=== PATIENT | female | born 1955 | race Caucasian/White ===

== ENCOUNTER 2019-06-19 08:28 | Outpatient (CLI) | payer MEDICARE, SELFPAY ==
[2019-06-19 08:43] LABS: Hematocrit 39.4 % (35.0-49.0); Hemoglobin 13.2 g/dL (12.0-15.0); Mean Corpuscular HGB Conc 33.5 g/dL (32.0-36.0); Mean Corpuscular Hemoglobin 29.3 pg (27.0-31.0); Mean Corpuscular Volume 87.4 fL (78.0-102.0); Mean Platelet Volume 8.4 fl (9.2-11.8); Platelet Count Result 353 K/mm3 (150-420); Red Blood Count 4.51 M/mm3 (4.20-5.40); Red Cell Distribution Width 12.7 % (11.6-14.4); White Blood Count 4.5 K/mm3 (4.8-10.8)
[2019-06-19 10:04] LABS: Alanine Aminotransferase 17 U/L (14-59); Albumin Level 4.1 g/dL (3.4-5.0); Alkaline Phosphatase 74 U/L (46-116); Anion Gap 10.4 mmol/L (7-16); Aspartate Amino Transferase 19 U/L (15-37); Bilirubin,Total 0.3 mg/dL (0.00-1.00); Blood Urea Nitrogen 6 mg/dL (7-18); Calcium 9.4 mg/dL (8.5-10.1); Carbon Dioxide 31 mmol/L (21-32); Chloride 98 mmol/L (98-108); Cholesterol 241 mg/dL (0-200); Estimated Glomerular Filt Rate > 60; Glucose 89 mg/dL (70-99); HDL Direct 48 mg/dL (40-60); LDL Cholesterol Calculated 161 mg/dL (<130); Osmolality Calculated 276 mOsm/kg (285-295); Potassium 4.4 mmol/L (3.5-5.1); Sodium 135 mmol/L (136-145); Total Protein 7.8 g/dL (6.4-8.2); Triglycerides 162 mg/dL (0-150)
[2019-06-19 10:29] LABS: Thyroid Stimulating Hormone Reflex 5.57 u/IU/mL (0.36-3.74)
[2019-06-19 11:07] LABS: Free T4 Free Thyroxine Reflex 0.84 ng/dL (0.76-1.46)
== END 2019-06-19 08:29 | disposition home or self-care (01) ==
PROVIDERS: PCP Family Medicine; Visit Provider Family Medicine
DX: E03.9 Hypothyroidism, unspecified (principal); I10 Essential (primary) hypertension
CPT/HCPCS: 36415; 80053; 80061; 84439; 84443; 85027

== ENCOUNTER 2020-03-30 07:47 | Outpatient (CLI) | payer MEDICARE, SELFPAY ==
[2020-03-30 08:37] LABS: Thyroid Stimulating Hormone Reflex 3.08 u/IU/mL (0.36-3.74)
== END 2020-03-30 07:48 | disposition home or self-care (01) ==
LOC: CHSLAB 07:50
PROVIDERS: PCP Family Medicine; Visit Provider Family Medicine
DX: E03.9 Hypothyroidism, unspecified (principal); I10 Essential (primary) hypertension; G47.00 Insomnia, unspecified; Z12.9 Encounter for screening for malignant neoplasm, site unspecified
CPT/HCPCS: 36415; 84443

== ENCOUNTER 2020-08-03 15:44 | Outpatient (CLI) | payer MEDICARE, SELFPAY | END 2020-08-03 15:45 | disposition home or self-care (01) | LOC: CHSLAB 15:47 | PROVIDERS: PCP Family Medicine; Visit Provider Specialist | DX: K04.6 Periapical abscess with sinus (principal) | CPT/HCPCS: 36415; 87015; 87070; 87075; 87116; 87205; 87206 ==

== ENCOUNTER 2020-10-29 07:37 | Observation (INO) | payer MEDICARE, SELFPAY ==
[2020-10-29] VITALS (13 sets, daily range): BP systolic 79–152; BP diastolic 61–93; PULSE 74–99; RESP 16–21; TEMP 36.3–37.1; O2SAT 95–100; BMI 16.7
[2020-10-29] MEDS: SODIUM CHLORIDE 0.9% IV 1,000 ML 999 ML (08:11)
--- NOTE | 2020-10-29 08:14 | ECG_ITS ---
Measurements Intervals [place] Rate: 74 P: 80 GA: 149 QRS: 95 QRSD: 89 T: 91 QT: 379 QTc: 421 Interpretive Statements SINUS RHYTHM RIGHT AXIS DEVIATION BORDERLINE ST-T WAVE ABNORMALITY- DIFFUSE LEADS BORDERLINE ECG Electronically Signed On 10-29-2020 8:35:41 CDT by Nas Vides D.O.
[2020-10-29 08:22] LABS: Basophils Absolute Auto 0.04 K/mm3 (0.00-0.10); Basophils Percent Auto 0.6 % (0.0-1.0); Eosinophils Absolute Auto 0.02 K/mm3 (0.02-0.50); Eosinophils Percent Auto 0.3 % (1.0-6.0); Hematocrit 31.3 % (35.0-42.0); Immature Granulocyte Absolute 0.11 K/mm3 (0.00-0.00); Immature Granulocyte Percent A 1.5 % (0.0-0.0); Lymphocytes Absolute Auto 0.77 K/mm3 (1.10-4.50); Lymphocytes Percent Auto 10.8 % (18.0-42.0); Mean Corpuscular HGB Conc 35.1 g/dL (32.0-36.0); Mean Corpuscular Hemoglobin 29.6 pg (27.0-31.0); Mean Corpuscular Volume 84.4 fL (78.0-102.0); Mean Platelet Volume 8.1 fl (9.2-11.8); Monocytes Absolute Auto 0.71 K/mm3 (0.10-0.90); Monocytes Percent Auto 9.9 % (2.0-11.0); Neutrophils Absolute Auto 5.5 K/mm3 (1.7-7.2); Neutrophils Percent Auto 76.9 % (50.0-70.0); Platelet Count Result 733 K/mm3 (150-420); Red Blood Count 3.71 M/mm3 (4.20-5.40); Red Cell Distribution Width 13.2 % (11.6-14.4); White Blood Count 7.2 K/mm3 (4.8-10.8)
[2020-10-29 08:30] LABS: INR 1.1; Partial Thromboplastin Time 35.8 SEC (23.90-30.70)
[2020-10-29 08:38] LABS: Alanine Aminotransferase 22 U/L (14-59); Albumin Level 3.6 g/dL (3.4-5.0); Alkaline Phosphatase 133 U/L (46-116); Anion Gap 13 mmol/L (8-16); Aspartate Amino Transferase 16 U/L (15-37); Bilirubin,Total 0.4 mg/dL (0.00-1.00); Blood Urea Nitrogen 6 mg/dL (7-18); Calcium 9.3 mg/dL (8.5-10.1); Carbon Dioxide 28 mmol/L (21-32); Chloride 81 mmol/L (98-108); Estimated Glomerular Filt Rate > 60; Glucose 81 mg/dL (70-99); Magnesium 1.7 mg/dL (1.8-2.4); NT Pro B Type Natriuretic Pept 46 pg/mL (0-125); Osmolality Calculated 250 mOsm/kg (285-295); Potassium 3.2 mmol/L (3.5-5.1); Sodium 122 mmol/L (136-145); Total Protein 8.1 g/dL (6.4-8.2); Troponin I 6.2 ng/L (0.00-60.4)
[2020-10-29] MEDS: SODIUM CHLORIDE 0.9% IV 1,000 ML 999 ML IV CONT (08:50)
[2020-10-29 09:17] LABS: Appearance Urine Clear (Clear); Bilirubin Urine Negative (Negative); Color Urine Light Yellow (Yellow); Glucose Urine UA Negative (Negative); Ketones Urine 1+ (Negative); Leukocyte Esterase Ur Negative LEU/UL (Negative); Nitrate Urine Negative (Negative); Protein Urine Negative (Negative); Urobilinogen Urine 0.2 mg/dL (0.2-1.0); pH Urine 6.5 (5.0-8.0)
[2020-10-29 09:22] LABS: Add Urine Microscopic? YES; Blood Urine Trace-lysed (Negative)
[2020-10-29 09:23] LABS: Bacteria Urine Trace /hpf; RBC Urine None seen /hpf (0-2); Squamous Epithelial Cell Urine Few /hpf (Few); WBC Urine None seen /hpf (0-3)
[2020-10-29] MEDS: POTASSIUM CHLORIDE 20 MEQ PACKET (FOR LIQUID) 40 MEQ (09:23)
[2020-10-29] MEDS: MAGNESIUM SULF 2 GM/WATER 50ML 2 GM/50 ML BAG IVPB (09:29)
--- NOTE | 2020-10-29 09:37 | ED.DIZZY ---
HPI - Dizziness General Chief Complaint: Syncope Stated Complaint: PASSING OUT Source: patient Mode of arrival: ambulatory Limitations: no limitations History of Present Illness HPI Narrative: pt presents with complaints of weakness, blacking out in vision, and generally feeling poorly. MD elicited complaint: dizziness, lightheadedness and near syncope Pertinent past history: syncope Onset (ago): day(s) Timing: gradual onset Description: lightheadedness, off-balance, difficulty walking and near-syncope Context: other (recent surgery on jaw, and states that its a lot of work to eat. She said she also gets full really easy.) Exacerbating factors: movement/ambulation, change in body position, exertion and standing Relieving factors: rest and lying down Associated symptoms: weakness Related Data Home Medications Medication Instructions Recorded Confirmed amlodipine 10 mg PO DAILY 10/29/20 10/29/20 levothyroxine 50 mcg PO DAILY 10/29/20 10/29/20 Allergies Allergy/AdvReac Type Severity Reaction Status Date / Time No Known Allergies Allergy Verified 10/25/20 06:55 Review of Systems Constitutional: Constitutional: Denies chills, Reports fatigue, Denies fever(s) and Reports weakness Eyes: Eyes: Reports no additional eye complaints ENT: Comments: continued drainage from post op wounds- her surgeon is aware Cardiovascular: Cardiovascular: Reports no additional cardiovascular complaints Respiratory: Respiratory: Reports no additional respiratory complaints Gastrointestinal: Gastrointestinal: Reports no additional gastrointestinal complaints Comments: early satiety Genitourinary: Comments: dark urine and decreased output Musculoskeletal: Musculoskeletal: Reports no additional musculoskeletal complaints Neurologic: Reports system reviewed and no additional complaints, except as documented, Denies confusion, Denies vertigo, Reports dizziness, Reports syncope, Denies headache(s), Denies focal weakness, Denies numbness and Reports weakness Psychiatric: Psychiatric: Reports no additional psychiatric complaints Endocrine: Endocrine: Reports no additional endocrine complaints Hematologic/Lymphatic: Hematologic/Lymphatic: Reports no additional hematologic/lymphatic complaints Allergic/Immunologic: Allergic/Immunologic: Reports no additional allergic/immunologic complaints [facility] Past Medical History Medical History History of cigarette smoking History of mouth cancer July 2009. 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 Hypertension Hypothyroidism Insomnia Surgical History Surgical History History of appendectomy Social History Social History Smoking status: Former smoker Tobacco type: cigarettes Additional smoking assessment comments: 35 pack-year history. Quit 2009. Additional living arrangements comments: . Lives with . 2 adult children. Exam Const: General: no acute distress and alert Orientation/consciousness: patient oriented x3 HENMT: Other: recent post op- some scabs in place, bruising and swelling appropriate for stage in healing Eyes: Conjunctivae: conjunctivae normal Neck: Neck: normal visual inspection Chest: Chest palpation & inspection: normal inspection of the chest Resp: Effort & Inspection: normal respiratory effort Auscultation: clear to auscultation bilaterally Cardio: Rate: regular rate Rhythm: regular rhythm GI: GI Palp: Yes Soft to palpation, No Tenderness to palpation present (GI) and No Guarding due to palpation present (GI) : General: Yes no CVA tenderness Urinary Catheter: Urinary Catheter: patent and draining Back/Spine/Pelvis: Back: no CVA tenderness Skin: General skin exam: normal color Other: bruising and wounds over post op areas, appropriate for stages in healing [place]
--- NOTE | 2020-10-29 10:02 | PM.IMHP ---
H&P: HPI History of Present Illness Date/Time: 10/29/20 10:02 Chief Complaint: fatigue, lightheaded and dizziness Narrative: this 65-year-old female who presented to our emergency department with complaints of lightheaded, dizziness fatigue. Patient has a past medical history of mouth cancer, hypertension, hypothyroidism insomnia and history of smoking. According to patient in 2019 she was diagnosed with mouth cancer ,at that time she received reconstructive surgery of her lower jaw. Patient notes that her left leg bone was used along with metal to reconstruct her lower jaw. She noted that recently she noticed protrusion to the left side of her jaw . She noted that after imaging it was discovered that the metal portion of her lower jaw Reconstruction had protruded through the graft. At that time she received more reconstruction of her lower, they used the bone of her right leg to reconstruct her lower jaw. Patient notes that approximately 2 weeks her fluid intake and oral intake decreased. Patient notes that he just did not take care of herself. She notes that her taste buds are non-existent due to her surgical procedure. She states she also started to experience dizziness and lightheaded when she stood up. vital signs 97.3, at 98, 21, 100% on room air, 79/61. WBC 7.2, hemoglobin 11.0, hematocrit 31.3, platelets 733, sodium 122, potassium 3.2, BUN 6, creatinine 0.67, magnesium 1.7, liver function tests within normal limits, troponin 6.2, BUN 46, UA positive for ketones blood, EKG sinus rhythm with a heart rate of 74. Patient being admitted for dehydration, and electrolyte imbalance. Patient denies cp, sob, palpitation, diarrhea, constipation, , headache, or chills and fevers. Review of Systems Review of Systems: A 14 organ system Review of Systems was performed and pertinent positives included in the HPI, otherwise PMF Past Medical History Medical History History of cigarette smoking History of mouth cancer July 2009. 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 Hypertension Hypothyroidism Insomnia Surgical History Surgical History History of appendectomy Family History Family History (Updated 10/29/20 @ 11:09 by Sonda R. Anthoyn, RADIOLOGY THERAPIST-C) Other Family history non-contributory Social History Social History Smoking status: Former smoker Tobacco type: cigarettes Additional smoking assessment comments: 35 pack-year history. Quit 2009. Additional living arrangements comments: . Lives with . 2 adult children. Meds Home Medications and Allergies Home Medications Medication Instructions Recorded Confirmed Type amlodipine 10 mg PO DAILY 10/29/20 10/29/20 History levothyroxine 50 mcg PO DAILY 10/29/20 10/29/20 History Allergies Allergy/AdvReac Type Severity Reaction Status Date / Time No Known Allergies Allergy Verified 10/25/20 06:55 Vital Signs Vital Signs - 24 hr 10/29/20 07:45 10/29/20 07:48 10/29/20 07:51 Temperature 97.3 F L Pulse Rate 87 86 84 Respiratory Rate 21 H Blood Pressure 152/82 H 142/84 H 137/83 Pulse Oximetry 100 10/29/20 07:53 Temperature Pulse Rate 98 Respiratory Rate Blood Pressure 79/61 L Pulse Oximetry Exam Narrative: GENERAL: This is a well-nourished, well-developed patient, in no apparent distress. HEAD: normocephalic, atraumatic. EYES: PERRL. Sclera clear/white. Vision is grossly intact. EARS: External ears normal, auditory canals clear and without drainage, TMs normal without perforation. Hearing grossly intact. NOSE: External nose normal with no obvious nasal discharge, nares without redness, no rhinorrhea. THROAT: Mucous membranes moist, posterior pharynx clear. NECK: Neck supple, CARDIOVASCULAR: Regular rate and rhythm without murmurs, gallops, or rub
[2020-10-29] MEDS: SODIUM CHLORIDE 0.9% IV 1,000 ML 150 ML IV CONT ×2 (10:30→18:24)
--- NOTE | 2020-10-29 13:30 | ADMGEN ---
This patient, Chaparrita Sinha, was admitted to 2nd Floor Room 203-1. Patient/family oriented to hospital policies and general routines including ID bracelet, bed and alarms, visiting hours, pain management, procedures, bathroom and other care routines, personal items, smoking policy, room service/diet, and visiting hours. Information on how to activate the Rapid Response Team has been discussed. Patient/Family are encouraged to report perceived risks to care and to ask questions if they do not understand what they are told or what they should do. Here at 11:30 for dehydration and not eating well. patient had hx of throat ca and had part of her tongue removed several years back. leaves her speech hard to understand at times. just got out of [facility] on 10-14-20 for constructiv surg to jaw. surture line has dry dark scabs through out. ocassional has clear serous drainage that she dabs with kleenex. claims she applies triple antibiotic oint. home health picks scabs off and then she has to start over. has r leg sutures from knee down to ankle. claims sutures dissolve. site looks good.
[2020-10-29] MEDS: ACETAMINOPHEN 325 MG TABLET 650 MG PO ×2 (13:54→18:30)
[2020-10-29] MEDS: ENOXAPARIN 40 MG/0.4 ML SYRINGE SUB-Q (13:55)
[2020-10-29] MEDS: NEOMYCIN/POLYMYXIN/BACITRACIN OINTMENT 15 GM TUBE 1 APPLIC TOPICAL ×2 (15:09→16:24)
--- NOTE | 2020-10-29 16:36 | PC.NURSE ---
Patient resting in bed w/no c/o pain or discomfort at this time. IV fluids running as ordered.
[2020-10-30] MEDS: SODIUM CHLORIDE 0.9% IV 1,000 ML 150 ML IV CONT ×2 (00:10→06:50)
[2020-10-30 03:52] VITALS: PULSE 92
[2020-10-30] MEDS: ACETAMINOPHEN 325 MG TABLET 650 MG PO ×3 (04:25→20:59)
--- NOTE | 2020-10-30 05:00 | PC.NURSE ---
Patient Chaparrita Sinha has had a somewhat restless night. Respirations even nonlabored, Up to bedside commode with no assist from staff ; large output of 2500cc clear pale yellow urine this shift. IV remains running with NS @150 ml/hr. 20 g. to left antecubital area. Difficulty keeping from bending. Arm board applied to help aide in prevention of bending at her elbow. Request for Tylenol @ 04:30 a.m. mild pain. and is now resting quietly. Call light in reach eyes closed.
[2020-10-30 05:22] LABS: Hemoglobin 10.2 g/dL (11.7-13.8); Immature Platelet Fraction Pct 0.6 % (1.0-7.0); Mean Corpuscular Hemoglobin 29.3 pg (27.0-31.0); Mean Corpuscular Volume 86.2 fL (78.0-102.0); Mean Platelet Volume 8.2 fl (9.2-11.8); Platelet Count Result 765 K/mm3 (150-420); Red Blood Count 3.48 M/mm3 (4.20-5.40); Red Cell Distribution Width 13.5 % (11.6-14.4); White Blood Count 5.9 K/mm3 (4.8-10.8)
[2020-10-30 05:33] LABS: Anion Gap 10 mmol/L (8-16); Blood Urea Nitrogen 3 mg/dL (7-18); Calcium 8.2 mg/dL (8.5-10.1); Carbon Dioxide 31 mmol/L (21-32); Chloride 94 mmol/L (98-108); Estimated CRCL calculation 75 ml/min; Estimated Glomerular Filt Rate > 60; Glucose 106 mg/dL (70-99); Osmolality Calculated 276 mOsm/kg (285-295); Potassium 2.9 mmol/L (3.5-5.1); Sodium 135 mmol/L (136-145)
[2020-10-30 05:39] LABS: Magnesium 1.7 mg/dL (1.8-2.4)
[2020-10-30] MEDS: LEVOTHYROXINE SODIUM 50 MCG TABLET PO (06:04)
[2020-10-30] MEDS: HYDROcodone/acetaminophen (*CRX) 5-325 MG TABLET 1 TAB PO (07:33)
[2020-10-30 08:00] VITALS: BP 113/71; PULSE 80; PULSE 85; RESP 16; TEMP 36.3; O2SAT 97
[2020-10-30] MEDS: DEXTROSE 5%/0.45% SOD CHL 1,000 ML 100 ML IV CONT (08:03)
[2020-10-30] MEDS: KCL 20 MEQ/SW 100 ML 100 ML 50 MEQ IVPB (08:04)
[2020-10-30] MEDS: POTASSIUM CHLORIDE 20 MEQ PACKET (FOR LIQUID) 40 MEQ PO (09:25)
[2020-10-30] MEDS: MAGNESIUM OXIDE 400 MG TABLET PO (09:26)
[2020-10-30] MEDS: NEOMYCIN/POLYMYXIN/BACITRACIN OINTMENT 15 GM TUBE 1 APPLIC TOPICAL ×2 (09:26→17:26)
--- NOTE | 2020-10-30 10:20 | P.PN_ITS ---
Progress Note: A&P Assessment and Plan (1) Acute dehydration: Code(s): E86.0 - Dehydration <REMIGIO BirdC - Last Filed: 10/30/20 10:23> Status: Acute <YING Bird - Last Filed: 10/30/20 10:23> Assessment and Plan: * Resolved * as evidence by hypotension and electrolyte imbalance caused by decreased oral intake * continue IV fluid changed to D5 one half normal saline * replace electrolytes <REMIGIO BirdC - Last Filed: 10/30/20 10:23> (2) Acute hypotension: Code(s): I95.9 - Hypotension, unspecified <YING Bird - Last Filed: 10/30/20 10:23> Status: Acute <YING Bird - Last Filed: 10/30/20 10:23> Assessment and Plan: * Resolved * secondary to dehydration * continue vital signs * continue IV fluid * orthostatics blood pressure reading <YING Bird - Last Filed: 10/30/20 10:23> (3) Insomnia: Qualifiers: Insomnia type: primary Qualified Code(s): F51.01 - Primary insomnia <YING Bird - Last Filed: 10/30/20 10:23> Code(s): G47.00 - Insomnia, unspecified <YING Bird - Last Filed: 10/30/20 10:23> Status: Acute <YING Bird - Last Filed: 10/30/20 10:23> Assessment and Plan: * chronic * added trazodone <REMIGIO BirdC - Last Filed: 10/30/20 10:23> (4) History of mouth cancer: Code(s): Z85.819 - Personal history of malignant neoplasm of unspecified site of lip, oral cavity, and pharynx <Angella Cruz AMANDA-C - Last Filed: 10/30/20 10:23> Status: Resolved <Angella Cruz YING - Last Filed: 10/30/20 10:23> (5) Hypothyroidism: Qualifiers: Hypothyroidism type: acquired Qualified Code(s): E03.9 - Hypothyroidism, unspecified <YING Bird - Last Filed: 10/30/20 10:23> Code(s): E03.9 - Hypothyroidism, unspecified <YING Bird - Last Filed: 10/30/20 10:23> Status: Chronic <YING Bird - Last Filed: 10/30/20 10:23> Assessment and Plan: * continue Synthroid <YING Bird - Last Filed: 10/30/20 10:23> (6) Hypertension: Qualifiers: Hypertension type: primary hypertension Qualified Code(s): I10 - Essential (primary) hypertension <YING Bird - Last Filed: 10/30/20 10:23> Code(s): I10 - Essential (primary) hypertension <Angella Cruz YING - Last Filed: 10/30/20 10:23> Status: Chronic <YING Bird - Last Filed: 10/30/20 10:23> Assessment and Plan: * amlodipine on hold for now * continue vital signs as ordered * will adjust medication as needed <YING Bird - Last Filed: 10/30/20 10:23> (7) Electrolyte imbalance: Code(s): E87.8 - Other disorders of electrolyte and fluid balance, not elsewhere classified <Angella Cruz YING - Last Filed: 10/30/20 10:23> Status: Acute <Angella Cruz YING - Last Filed: 10/30/20 10:23> Assessment and Plan: * secondary to dehydration * sodium 122>135 * potassium 3.2>2.9 * magnesium 1.7>1.7 * will replace with supplements * BMP and Mag in the a.m. * IV fluid changed to D5 one half normal saline <Angella Cruz YING - Last Filed: 10/30/20 10:23> (8) Lightheadedness: Code(s): R42 - Dizziness and giddiness <AMANDA Bird-C - Last Filed: 10/30/20 10:23> Status: Acute <Angella Cruz,
--- NOTE | 2020-10-30 10:20 | WPDPN ---
Progress Note: A&P Assessment and Plan (1) Acute dehydration: Code(s): E86.0 - Dehydration <REMIGIO BirdC - Last Filed: 10/30/20 10:23> Status: Acute <YING Bird - Last Filed: 10/30/20 10:23> Assessment and Plan: Resolved as evidence by hypotension and electrolyte imbalance caused by decreased oral intake continue IV fluid changed to D5 one half normal saline replace electrolytes <REMIGIO BirdC - Last Filed: 10/30/20 10:23> (2) Acute hypotension: Code(s): I95.9 - Hypotension, unspecified <REMIGIO BirdC - Last Filed: 10/30/20 10:23> Status: Acute <REMIGIO BirdC - Last Filed: 10/30/20 10:23> Assessment and Plan: Resolved secondary to dehydration continue vital signs continue IV fluid orthostatics blood pressure reading <YING Bird - Last Filed: 10/30/20 10:23> (3) Insomnia: Qualifiers: Insomnia type: primary Qualified Code(s): F51.01 - Primary insomnia <YING Bird - Last Filed: 10/30/20 10:23> Code(s): G47.00 - Insomnia, unspecified <REMIGIO BirdC - Last Filed: 10/30/20 10:23> Status: Acute <YING Bird - Last Filed: 10/30/20 10:23> Assessment and Plan: chronic added trazodone <REMIGIO BirdC - Last Filed: 10/30/20 10:23> (4) History of mouth cancer: Code(s): Z85.819 - Personal history of malignant neoplasm of unspecified site of lip, oral cavity, and pharynx <Angella Cruz REMIGIOC - Last Filed: 10/30/20 10:23> Status: Resolved <Angella Cruz AMANDA-C - Last Filed: 10/30/20 10:23> (5) Hypothyroidism: Qualifiers: Hypothyroidism type: acquired Qualified Code(s): E03.9 - Hypothyroidism, unspecified <Angella Cruz REMIGIOGabriela - Last Filed: 10/30/20 10:23> Code(s): E03.9 - Hypothyroidism, unspecified <Angella Cruz REMIGIOGabriela - Last Filed: 10/30/20 10:23> Status: Chronic <Angella CruzAMANDATerriGabriela - Last Filed: 10/30/20 10:23> Assessment and Plan: continue Synthroid <Angella Cruz REMIGIOGabriela - Last Filed: 10/30/20 10:23> (6) Hypertension: Qualifiers: Hypertension type: primary hypertension Qualified Code(s): I10 - Essential (primary) hypertension <Angella Cruz REHABILITATION PSYCHOLOGISTTerriGabriela - Last Filed: 10/30/20 10:23> Code(s): I10 - Essential (primary) hypertension <Angella Willis AMANDA CruzTerriGabriela - Last Filed: 10/30/20 10:23> Status: Chronic <Angella Cruz REMIGIOGabriela - Last Filed: 10/30/20 10:23> Assessment and Plan: amlodipine on hold for now continue vital signs as ordered will adjust medication as needed <Angella MontanoAMANDA CortezTerriGabriela - Last Filed: 10/30/20 10:23> (7) Electrolyte imbalance: Code(s): E87.8 - Other disorders of electrolyte and fluid balance, not elsewhere classified <Angella MontanoYING Cortez - Last Filed: 10/30/20 10:23> Status: Acute <Angella CruzAMANDATerriGabriela - Last Filed: 10/30/20 10:23> Assessment and Plan: secondary to dehydration sodium 122>135 potassium 3.2>2.9 magnesium 1.7>1.7 will replace with supplements BMP and Mag in the a.m. IV fluid changed to D5 one half normal saline <Angella MontanoAMANDA CortezTerriGabriela - Last Filed: 10/30/20 10:23> (8) Lightheadedness: Code(s): R42 - Dizziness and giddiness <Angella CharmaineYING Cortez - Last Filed: 10/30/20 10:23> Status: Acute <YING Bird - Last Filed: 10/30/20 10:23> Assessment and Plan: secondary to dehydration treat the underlying cause not believed to be cardiac related EKG sinus rhythm with a heart rate of 74 troponin within normal limits <YING Bird - Last Filed: 10/30/20 10:23> Subjective Date/time seen: 10/30/20 10:20 9 this night was uneventful. She d
[2020-10-30 12:00] VITALS: PULSE 80
[2020-10-30 12:21] LABS: Sodium 131 mmol/L (136-145)
[2020-10-30] MEDS: ENOXAPARIN 40 MG/0.4 ML SYRINGE SUB-Q (12:22)
[2020-10-30 16:00] VITALS: BP 139/78; PULSE 81; PULSE 90; RESP 18; TEMP 37; O2SAT 97
[2020-10-30] MEDS: traMADol HCL (*CRX) 25 MG TABLET PO (17:32)
--- NOTE | 2020-10-30 19:11 | PC.NURSE ---
Patient asleep. No apparent distress. Telemetry. Call light in reach.
[2020-10-30 19:46] VITALS: PULSE 90
[2020-10-30] MEDS: traZODone HCL 25 MG TABLET PO (21:00)
[2020-10-31] VITALS: BP 111/63; PULSE 88; RESP 16; TEMP 36.4; O2SAT 96
[2020-10-31] MEDS: ACETAMINOPHEN 325 MG TABLET 650 MG PO ×2 (03:22→08:15)
[2020-10-31 04:00] VITALS: BP 128/52; PULSE 70; PULSE 71; RESP 16; TEMP 36.4; O2SAT 97
[2020-10-31 05:27] LABS: Hemoglobin 9.6 g/dL (11.7-13.8); Immature Platelet Fraction Pct 0.6 % (1.0-7.0); Mean Corpuscular HGB Conc 33.1 g/dL (32.0-36.0); Mean Corpuscular Hemoglobin 28.9 pg (27.0-31.0); Mean Corpuscular Volume 87.3 fL (78.0-102.0); Mean Platelet Volume 8.1 fl (9.2-11.8); Platelet Count Result 696 K/mm3 (150-420); Red Blood Count 3.32 M/mm3 (4.20-5.40); Red Cell Distribution Width 13.7 % (11.6-14.4); White Blood Count 6.7 K/mm3 (4.8-10.8)
[2020-10-31 05:40] LABS: Alanine Aminotransferase 15 U/L (14-59); Alkaline Phosphatase 112 U/L (46-116); Anion Gap 10 mmol/L (8-16); Aspartate Amino Transferase 10 U/L (15-37); Bilirubin,Total 0.2 mg/dL (0.00-1.00); Blood Urea Nitrogen 5 mg/dL (7-18); Calcium 8.6 mg/dL (8.5-10.1); Carbon Dioxide 29 mmol/L (21-32); Chloride 93 mmol/L (98-108); Estimated CRCL calculation 66 ml/min; Estimated Glomerular Filt Rate > 60; Glucose 115 mg/dL (70-99); Magnesium 1.6 mg/dL (1.8-2.4); Osmolality Calculated 272 mOsm/kg (285-295); Potassium 3.9 mmol/L (3.5-5.1); Sodium 132 mmol/L (136-145); Total Protein 6.9 g/dL (6.4-8.2)
[2020-10-31] MEDS: LEVOTHYROXINE SODIUM 50 MCG TABLET PO (06:01)
--- NOTE | 2020-10-31 07:10 | P.DS_ITS ---
DS: Admitting Diagnosis Discharge Date 10/31/2020 <Angella Cruz YING - Last Filed: 10/31/20 07:45> Admitting Diagnosis Dehydration , hyponatremia <Angella Cruz YING - Last Filed: 10/31/20 07:45> DS: Discharge Diagnosis Discharge Diagnosis (1) Acute dehydration: Code(s): E86.0 - Dehydration <Angella Cruz YING - Last Filed: 10/31/20 07:45> Status: Acute <Angella Cruz YING - Last Filed: 10/31/20 07:45> Assessment and Plan: * Resolved * as evidence by hypotension and electrolyte imbalance caused by decreased oral intake * replace electrolytes Discharge * Resolved * Patient educated hydration <Angella Cruz YING - Last Filed: 10/31/20 07:45> (2) Acute hypotension: Code(s): I95.9 - Hypotension, unspecified <Angella Cruz YING - Last Filed: 10/31/20 07:45> Status: Acute <Angella Cruz YING - Last Filed: 10/31/20 07:45> Assessment and Plan: * Resolved * secondary to dehydration * continue vital signs <Angella Cruz YING - Last Filed: 10/31/20 07:45> (3) Insomnia: Qualifiers: Insomnia type: primary Qualified Code(s): F51.01 - Primary insomnia <Angella Cruz YING - Last Filed: 10/31/20 07:45> Code(s): G47.00 - Insomnia, unspecified <Angella Cruz YING - Last Filed: 10/31/20 07:45> Status: Acute <Angella Cruz YING - Last Filed: 10/31/20 07:45> Assessment and Plan: * chronic * added trazodone <Angella Cruz YING - Last Filed: 10/31/20 07:45> (4) History of mouth cancer: Code(s): Z85.819 - Personal history of malignant neoplasm of unspecified site of lip, oral cavity, and pharynx <Angella Cruz MERCHANDISE DELIVEREREstephanie - Last Filed: 10/31/20 07:45> Status: Resolved <Angella Cruz AMANDAEstephanie - Last Filed: 10/31/20 07:45> Assessment and Plan: * <Angella Cruz MERCHANDISE DELIVERER-C - Last Filed: 10/31/20 07:45> (5) Hypothyroidism: Qualifiers: Hypothyroidism type: acquired Qualified Code(s): E03.9 - Hypothyroidism, unspecified <Angella Cruz MERCHANDISE DELIVERER-C - Last Filed: 10/31/20 07:45> Code(s): E03.9 - Hypothyroidism, unspecified <Angella Cruz MERCHANDISE DELIVERER-C - Last Filed: 10/31/20 07:45> Status: Chronic <Angella CruzYING - Last Filed: 10/31/20 07:45> Assessment and Plan: * continue Synthroid <Angella CruzAMANDATerriGabriela - Last Filed: 10/31/20 07:45> (6) Hypertension: Qualifiers: Hypertension type: primary hypertension Qualified Code(s): I10 - Essential (primary) hypertension <Angella Cruz REMIGIOGabriela - Last Filed: 10/31/20 07:45> Code(s): I10 - Essential (primary) hypertension <Angella CruzAMANDATerriGabriela - Last Filed: 10/31/20 07:45> Status: Chronic <Angella Cruz REMIGIOGabriela - Last Filed: 10/31/20 07:45> Assessment and Plan: * Continue amlodipine * continue vital signs as ordered * will adjust medication as needed <Angella CruzYING - Last Filed: 10/31/20 07:45> (7) Electrolyte imbalance: Code(s): E87.8 - Other disorders of electrolyte and fluid balance, not elsewhere classified <Angella CruzYING - Last Filed: 10/31/20 07:45> Status: Acute <Angella CruzAMANDATerriGabriela - Last Filed: 10/31/20 07:45> Assessment and Plan: * secondary to dehydration * sodium 122>135>132 * potassium 3.2>2.9>3.9 * magnesium 1.7>1.7>1.6 * will replace with supplements * BMP and Mag in the a.m. * IV flui
--- NOTE | 2020-10-31 07:10 | PM.DS ---
DS: Admitting Diagnosis Discharge Date 10/31/2020 <Angella CruzYING - Last Filed: 10/31/20 07:45> Admitting Diagnosis Dehydration , hyponatremia <Angella CruzAMANDATerriGabriela - Last Filed: 10/31/20 07:45> DS: Discharge Diagnosis Discharge Diagnosis (1) Acute dehydration: Code(s): E86.0 - Dehydration <Angella Willis YING Cruz - Last Filed: 10/31/20 07:45> Status: Acute <Angella CruzREMIGIOC - Last Filed: 10/31/20 07:45> Assessment and Plan: Resolved as evidence by hypotension and electrolyte imbalance caused by decreased oral intake replace electrolytes Discharge Resolved Patient educated hydration <Angella MontanoAMANDA CortezTerriGabriela - Last Filed: 10/31/20 07:45> (2) Acute hypotension: Code(s): I95.9 - Hypotension, unspecified <Angella Willis YING rCuz - Last Filed: 10/31/20 07:45> Status: Acute <Angella CruzAMANDATerriC - Last Filed: 10/31/20 07:45> Assessment and Plan: Resolved secondary to dehydration continue vital signs <Angella CruzAMANDATerriGabriela - Last Filed: 10/31/20 07:45> (3) Insomnia: Qualifiers: Insomnia type: primary Qualified Code(s): F51.01 - Primary insomnia <Angella MontanoAMANDA CortezTerriGabriela - Last Filed: 10/31/20 07:45> Code(s): G47.00 - Insomnia, unspecified <Angella Willis REMIGIO CruzC - Last Filed: 10/31/20 07:45> Status: Acute <Angella Willis YING Cruz - Last Filed: 10/31/20 07:45> Assessment and Plan: chronic added trazodone <Benjiecolette CharmaineYING Cortez - Last Filed: 10/31/20 07:45> (4) History of mouth cancer: Code(s): Z85.819 - Personal history of malignant neoplasm of unspecified site of lip, oral cavity, and pharynx <YING Bird - Last Filed: 10/31/20 07:45> Status: Resolved <Angella CruzYING - Last Filed: 10/31/20 07:45> Assessment and Plan: <Angella CruzYING - Last Filed: 10/31/20 07:45> (5) Hypothyroidism: Qualifiers: Hypothyroidism type: acquired Qualified Code(s): E03.9 - Hypothyroidism, unspecified <Angella CruzYING - Last Filed: 10/31/20 07:45> Code(s): E03.9 - Hypothyroidism, unspecified <Agnella CruzYING - Last Filed: 10/31/20 07:45> Status: Chronic <Angella CruzAMANDATerriGabriela - Last Filed: 10/31/20 07:45> Assessment and Plan: continue Synthroid <Angella rCuzAMANDATerriGabriela - Last Filed: 10/31/20 07:45> (6) Hypertension: Qualifiers: Hypertension type: primary hypertension Qualified Code(s): I10 - Essential (primary) hypertension <Angella CruzYING - Last Filed: 10/31/20 07:45> Code(s): I10 - Essential (primary) hypertension <Angella CruzYING - Last Filed: 10/31/20 07:45> Status: Chronic <Angella CruzAMANDATerriGabriela - Last Filed: 10/31/20 07:45> Assessment and Plan: Continue amlodipine continue vital signs as ordered will adjust medication as needed <Angella CruzAMANDATerriGabriela - Last Filed: 10/31/20 07:45> (7) Electrolyte imbalance: Code(s): E87.8 - Other disorders of electrolyte and fluid balance, not elsewhere classified <Angella CruzYING - Last Filed: 10/31/20 07:45> Status: Acute <Angella CruzAMANDATerriGabriela - Last Filed: 10/31/20 07:45> Assessment and Plan: secondary to dehydration sodium 122>135>132 potassium 3.2>2.9>3.9 magnesium 1.7>1.7>1.6 will replace with supplements BMP and Mag in the a.m. IV fluid changed to D5 one half normal saline <YING Bird - Last Filed: 10/31/20 07:45> (8) Lightheadedness: Code(s): R42 - Dizziness and giddiness <YING Bird - Last Filed: 10/31/20 07:45> Status: Acute <YING Bird - Last Filed: 10/31/20 07:45> Assessment and Plan: secondary to dehydration treat the underlying c
[2020-10-31 08:00] VITALS: BP 118/80; PULSE 74; RESP 20; TEMP 36.6; O2SAT 96
[2020-10-31] MEDS: MAGNESIUM OXIDE 400 MG TABLET PO (08:13)
[2020-10-31] MEDS: POTASSIUM CHLORIDE 20 MEQ PACKET (FOR LIQUID) 40 MEQ PO (08:14)
[2020-10-31 08:15] VITALS: TEMP 36.7
[2020-10-31 09:22] VITALS: TEMP 36.7
--- NOTE | 2020-10-31 11:28 | PC.NURSE ---
10:40 a.m. 65 y/o female Chaparrita Sinha Discharged to home. All discharge information printed and verbally reviewed. Return appointments needed in 1-2 weeks., new medication, and emphasis on diet and hydration needs, skin and wound care to left leg and her lower jaw will continue without changes. Heart monitor discontinued, IV discontinued left AC with 2x2 and bandage applied. Transport down to in personal vehicle via wheelchair, Seatbelt measures encouraged. No questions or concerns at this time, should any arise number is provided in discharge papers Chaparrita is aware.
--- NOTE | 2020-11-04 14:09 | PC.NURSE ---
Pt states she received and understood her discharge instructions. Pt also states everybody was very good to me .
== END 2020-10-31 10:40 | disposition home or self-care (01) ==
LOC: CHSED 09:44 → CHS2ND 09:46
PROVIDERS: Admitting Provider Emergency Medicine; Emergency Provider Emergency Medicine; PCP Family Medicine; Visit Provider Nurse Practitioner
DX: E86.0 Dehydration (principal); E87.1 Hypo-osmolality and hyponatremia; I95.9 Hypotension, unspecified; I10 Essential (primary) hypertension; E03.9 Hypothyroidism, unspecified; G47.00 Insomnia, unspecified; Z85.819 Personal history of malignant neoplasm of unspecified site of lip, oral cavity, and pharynx; Z87.891 Personal history of nicotine dependence
CPT/HCPCS: 36415; 80048; 80053; 81001; 83735; 83880; 84295; 84484; 85025; 85027; 85055; 85060; 85610; 85730; 93005; 96361; 96365; 96366; 96372; 99285; A9270; G0378; J1650; J3475; J3480; J7030

== ENCOUNTER 2020-11-08 12:56 | Outpatient (CLI) | payer MEDICARE, SELFPAY ==
[2020-11-08 13:15] LABS: Hemoglobin 10.3 g/dL (11.7-13.8); Immature Platelet Fraction Pct 0.5 % (1.0-7.0); Mean Corpuscular HGB Conc 33.2 g/dL (32.0-36.0); Mean Corpuscular Hemoglobin 29.3 pg (27.0-31.0); Mean Corpuscular Volume 88.3 fL (78.0-102.0); Mean Platelet Volume 7.8 fl (9.2-11.8); Platelet Count Result 849 K/mm3 (150-420); Red Blood Count 3.51 M/mm3 (4.20-5.40); White Blood Count 7.5 K/mm3 (4.8-10.8)
[2020-11-08 14:26] LABS: Alanine Aminotransferase 18 U/L (14-59); Albumin Level 3.7 g/dL (3.4-5.0); Alkaline Phosphatase 103 U/L (46-116); Anion Gap 12 mmol/L (8-16); Aspartate Amino Transferase 17 U/L (15-37); Bilirubin,Total 0.2 mg/dL (0.00-1.00); Blood Urea Nitrogen 12 mg/dL (7-18); Calcium 9.2 mg/dL (8.5-10.1); Carbon Dioxide 28 mmol/L (21-32); Chloride 95 mmol/L (98-108); Estimated Glomerular Filt Rate > 60; Glucose 97 mg/dL (70-99); Osmolality Calculated 279 mOsm/kg (285-295); Potassium 4.2 mmol/L (3.5-5.1); Sodium 135 mmol/L (136-145); Total Protein 7.2 g/dL (6.4-8.2); Vitamin B12 824 pg/mL (193-986)
[2020-11-08 14:30] LABS: Thyroid Stimulating Hormone Reflex 1.05 u/IU/mL (0.36-3.74)
== END 2020-11-08 12:57 | disposition home or self-care (01) ==
LOC: CHSLAB 13:01
PROVIDERS: Nurse Practitioner; PCP Family Medicine; Visit Provider Family Medicine
DX: E87.1 Hypo-osmolality and hyponatremia (principal); E87.8 Other disorders of electrolyte and fluid balance, not elsewhere classified; E11.9 Type 2 diabetes mellitus without complications; E03.9 Hypothyroidism, unspecified; E53.8 Deficiency of other specified B group vitamins
CPT/HCPCS: 36415; 80053; 82607; 82746; 84443; 85027; 85055

== ENCOUNTER 2020-11-11 11:21 | Outpatient (NON) | payer MEDICARE, SELFPAY ==
[2020-11-11 12:09] LABS: Alanine Aminotransferase 13 U/L (14-59); Albumin Level 3.6 g/dL (3.4-5.0); Alkaline Phosphatase 101 U/L (46-116); Anion Gap 9 mmol/L (8-16); Aspartate Amino Transferase 12 U/L (15-37); Bilirubin,Total 0.2 mg/dL (0.00-1.00); Blood Urea Nitrogen 15 mg/dL (7-18); Calcium 9.1 mg/dL (8.5-10.1); Carbon Dioxide 30 mmol/L (21-32); Chloride 95 mmol/L (98-108); Estimated Glomerular Filt Rate > 60; Glucose 84 mg/dL (70-99); Osmolality Calculated 277 mOsm/kg (285-295); Sodium 134 mmol/L (136-145)
== END 2020-11-11 11:22 | disposition home or self-care (01) ==
LOC: CHSLAB 11:24
PROVIDERS: Visit Provider Family Medicine
DX: E87.0 Hyperosmolality and hypernatremia (principal); Z48.89 Encounter for other specified surgical aftercare
CPT/HCPCS: 36415; 80053; 87070; 87147; 87186; 87205

== ENCOUNTER 2020-12-29 07:13 | Outpatient (CLI) | payer MEDICARE, SELFPAY ==
--- NOTE | ~2020-12-29 | XR_ITS ---
EXAMINATION: XR chest 2V EXAM DATE: 12/29/2020 07:42 INDICATION: HBO Screening no chest complaints . TECHNIQUE: Frontal and lateral projections of the chest obtained and reviewed. There is no prior jsesie dy for comparison. FINDINGS: Gastrostomy tube with balloon anchor. Small amount of left lower lobe infiltrate, probably atelectasis given no acute symptomatology provided. Lungs are hyperinflated with narrow cardiac silho uette. No pneumothorax or pleural effusion. There are mild bony degenerative changes. There is aortic arteriosclerosis. Neck surgical clips. IMPRESSION: 1. Subsegmental left basilar opacity probably atelectasis. 2. Hyperinflation. Reviewed, dictated and finalized at location A. DELIVERY AIDE
== END 2020-12-29 07:14 | disposition home or self-care (01) ==
LOC: CHSIMG 07:25
PROVIDERS: PCP Family Medicine
DX: Z01.818 Encounter for other preprocedural examination (principal)
CPT/HCPCS: 71046

== ENCOUNTER 2021-04-04 09:16 | Outpatient (CLI) | payer MEDICARE, SELFPAY ==
[2021-04-04 10:46] LABS: Thyroid Stimulating Hormone Reflex 4.57 u/IU/mL (0.36-3.74)
[2021-04-04 11:19] LABS: Free T4 Free Thyroxine Reflex 0.76 ng/dL (0.76-1.46)
== END 2021-04-04 09:17 | disposition home or self-care (01) ==
LOC: CHSLAB 09:19
PROVIDERS: PCP Family Medicine; Visit Provider Family Medicine
DX: E03.9 Hypothyroidism, unspecified (principal); E11.9 Type 2 diabetes mellitus without complications
CPT/HCPCS: 36415; 84439; 84443

== ENCOUNTER 2021-04-07 08:32 | Outpatient (CLI) | payer MEDICARE, SELFPAY ==
[2021-04-07 08:58] LABS: Basophils Absolute Auto 0.06 K/mm3 (0.00-0.10); Basophils Percent Auto 1.1 % (0.0-1.0); Eosinophils Absolute Auto 0.41 K/mm3 (0.02-0.50); Eosinophils Percent Auto 7.7 % (1.0-6.0); Hematocrit 42.3 % (35.0-42.0); Immature Granulocyte Absolute 0.01 K/mm3 (0.00-0.00); Immature Granulocyte Percent A 0.2 % (0.0-0.0); Lymphocytes Absolute Auto 0.92 K/mm3 (1.10-4.50); Lymphocytes Percent Auto 17.2 % (18.0-42.0); Mean Corpuscular HGB Conc 33.1 g/dL (32.0-36.0); Mean Corpuscular Hemoglobin 29.9 pg (27.0-31.0); Mean Corpuscular Volume 90.2 fL (78.0-102.0); Mean Platelet Volume 9.7 fl (9.2-11.8); Monocytes Percent Auto 5.6 % (2.0-11.0); Neutrophils Absolute Auto 3.7 K/mm3 (1.7-7.2); Neutrophils Percent Auto 68.2 % (50.0-70.0); Platelet Count Result 310 K/mm3 (150-420); Red Blood Count 4.69 M/mm3 (4.20-5.40); Red Cell Distribution Width 15.3 % (11.6-14.4); White Blood Count 5.4 K/mm3 (4.8-10.8)
[2021-04-07 09:13] LABS: Partial Thromboplastin Time 28.8 SEC (23.90-30.70); Prothrombin Time 10.4 Seconds (9.50-12.10)
[2021-04-07 11:32] LABS: Alanine Aminotransferase 23 U/L (14-59); Albumin Level 4.5 g/dL (3.4-5.0); Alkaline Phosphatase 105 U/L (46-116); Anion Gap 12 mmol/L (8-16); Aspartate Amino Transferase 20 U/L (15-37); Bilirubin,Total 0.2 mg/dL (0.00-1.00); Blood Urea Nitrogen 16 mg/dL (7-18); Calcium 9.2 mg/dL (8.5-10.1); Carbon Dioxide 27 mmol/L (21-32); Chloride 99 mmol/L (98-108); Estimated Glomerular Filt Rate > 60; Glucose 94 mg/dL (70-99); Lactate Dehydrogenase 141 U/L (81-234); Osmolality Calculated 287 mOsm/kg (285-295); Potassium 4.4 mmol/L (3.5-5.1); Sodium 138 mmol/L (136-145); Total Protein 7.7 g/dL (6.4-8.2)
== END 2021-04-07 08:33 | disposition home or self-care (01) ==
LOC: CHSLAB 08:36
PROVIDERS: PCP Family Medicine
DX: Z85.819 Personal history of malignant neoplasm of unspecified site of lip, oral cavity, and pharynx (principal); T39.1X1A Poisoning by 4-Aminophenol derivatives, accidental (unintentional), initial encounter; D49.9 Neoplasm of unspecified behavior of unspecified site
CPT/HCPCS: 36415; 80053; 83615; 85025; 85610; 85730

== ENCOUNTER 2022-03-15 11:31 | Outpatient (CLI) | payer MEDICARE, SELFPAY ==
[2022-03-15 11:45] LABS: Basophils Absolute Auto 0.03 K/mm3 (0.00-0.10); Basophils Percent Auto 0.5 % (0.0-1.0); Eosinophils Absolute Auto 0.03 K/mm3 (0.02-0.50); Eosinophils Percent Auto 0.5 % (1.0-6.0); Hematocrit 40.6 % (35.0-42.0); Hemoglobin 13.4 g/dL (11.7-13.8); Immature Granulocyte Absolute 0.02 K/mm3 (0.00-0.00); Immature Granulocyte Percent A 0.4 % (0.0-0.0); Lymphocytes Absolute Auto 0.77 K/mm3 (1.10-4.50); Lymphocytes Percent Auto 13.6 % (18.0-42.0); Mean Corpuscular Hemoglobin 31.2 pg (27.0-31.0); Mean Corpuscular Volume 94.4 fL (78.0-102.0); Mean Platelet Volume 9.3 fl (9.2-11.8); Monocytes Percent Auto 7.1 % (2.0-11.0); Neutrophils Absolute Auto 4.4 K/mm3 (1.7-7.2); Neutrophils Percent Auto 77.9 % (50.0-70.0); Platelet Count Result 306 K/mm3 (150-420); Red Cell Distribution Width 12.9 % (11.6-14.4); White Blood Count 5.7 K/mm3 (4.8-10.8)
[2022-03-15 12:35] LABS: Alanine Aminotransferase 25 U/L (14-59); Albumin Level 4.2 g/dL (3.4-5.0); Alkaline Phosphatase 103 U/L (46-116); Anion Gap 4 mmol/L (8-16); Aspartate Amino Transferase 23 U/L (15-37); Bilirubin,Total 0.3 mg/dL (0.00-1.00); Blood Urea Nitrogen 20 mg/dL (7-18); Carbon Dioxide 35 mmol/L (21-32); Chloride 92 mmol/L (98-108); Cholesterol 172 mg/dL (0-200); Estimated Glomerular Filt Rate > 60; Free T4 Free Thyroxine 1.03 ng/dL (0.76-1.46); Glucose 95 mg/dL (70-99); HDL Direct 60 mg/dL (40-60); LDL Cholesterol Calculated 89 mg/dL (<130); Osmolality Calculated 274 mOsm/kg (285-295); Potassium 3.8 mmol/L (3.5-5.1); Sodium 131 mmol/L (136-145); Thyroid Stimulating Hormone 12.18 uIU/mL (0.36-3.74); Total Protein 7.2 g/dL (6.4-8.2); Triglycerides 117 mg/dL (0-150)
== END 2022-03-15 11:32 | disposition home or self-care (01) ==
LOC: CHSLAB 11:33
PROVIDERS: PCP Family Medicine; Visit Provider Nurse Practitioner Family
DX: I10 Essential (primary) hypertension (principal); E03.9 Hypothyroidism, unspecified; C44.91 Basal cell carcinoma of skin, unspecified; Z87.891 Personal history of nicotine dependence
CPT/HCPCS: 36415; 80053; 80061; 84439; 84443; 85025

== ENCOUNTER 2022-05-04 07:39 | Outpatient (CLI) | payer MEDICARE, SELFPAY ==
[2022-05-04 08:46] LABS: Free T4 Free Thyroxine 0.96 ng/dL (0.76-1.46); Thyroid Stimulating Hormone 5.46 uIU/mL (0.36-3.74)
[2022-05-07 19:49] LABS: T4 Thyroxine 5.7 mcg/dL (5.9-10.3)
== END 2022-05-04 07:40 | disposition home or self-care (01) ==
LOC: CHSLAB 07:41
PROVIDERS: PCP Nurse Practitioner Family; Visit Provider Nurse Practitioner Family
DX: E03.9 Hypothyroidism, unspecified (principal)
CPT/HCPCS: 36415; 84436; 84439; 84443

== ENCOUNTER 2022-06-23 15:08 | Inpatient (IN) | payer MEDICARE, SELFPAY ==
[2022-06-23] VITALS (38 sets, daily range): BP systolic 80–166; BP diastolic 51–105; PULSE 65–88; RESP 8–28; TEMP 36.1–37; O2SAT 90–100; BMI 13.9
--- NOTE | 2022-06-23 15:15 | ED.AMS ---
HPI - Altered Mental Status General Chief Complaint: Overdose Stated Complaint: unresponsive Time Seen by Provider: 06/23/22 15:15 History of Present Illness HPI narrative: 67-year-old female patient is brought to the ER by the daughter with altered mental status. The daughter states that the patient has been depressed and agitated and anxious more so in the last week than usual. She has also been very depressed since January after her 's and has expressed a wish to several times. Apparently she called the daughter yesterday evening to tell her she was not feeling well and the daughter went there to see her today around 1:00 a.m. and saw that the house was all torn apart. The daughter states that she went to waste picker some medications for her and was gone about 15 minutes and when she came back she found the mother with a bottle of 7 up and not making much sense. She notices that a large bottle of Tylenol p.m. was not at the table and could not find it anywhere and the patient was waving the bottle of 7 up in hand. She suspects that she might have taken it but is not sure. The patient who was initially quite somnolent but arousable only with pain stimulation does admit to taking the bottle of Tylenol p.m. while her daughter was gone. She states that she crushed the tablets and mix them and the 7 up and then put it in her stomach through her G-tube which is what she uses for all kinds of feeds and medications. Patient does not take anything orally may be a sip of water with a straw periodically primarily because she has had tongue cancer and extensive surgery and radiation to the lower jaw. Related Data Allergies Allergy/AdvReac Type Severity Reaction Status Date / Time clindamycin Allergy Unknown Unknown Verified 03/15/22 14:42 Review of Systems Review of Systems: ROS unobtainable: Yes unobtainable due to mental status PMFSH Past Medical History Medical History History of cigarette smoking History of mouth cancer July 2009. 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 Hypertension Hypothyroidism Insomnia Surgical History Surgical History History of appendectomy Family History Family History Other Family history non-contributory Social History Social History Smoking packs per day: 2 Smoking cigarettes per day: 40.0 Smoking status: Former smoker Tobacco type: cigarettes Smoking end date: 07/29/12 Additional smoking assessment comments: cont to smoke Alcohol intake: never Substance use: never Substance use type: does not use Living arrangements: with family Additional living arrangements comments: . Lives with . 2 adult children. Spiritual care concerns: No Exam Narrative: Patient is brought to the ER by a wheelchair and she is sitting upright however not responding to any questions. She does wake up to sternal rub and is fully awake and answers all the questions very appropriately. Patient does appear thin and cachectic. Vital signs are noted to be stable with a blood pressure of 154/87 and pulse rate of 76. She shows a normal sinus rhythm on the ekg monitor. Her respiratory rate is initially was noted to be 8 but when she wakes up it is 22. Her SpO2 has been 98% on room air. HEENT: atraumatic head. Patient does have some deformity to the lower jaw and oral cavity primarily because of her tongue cancer and surgery and the radiation treatment there of. Pupils are midsize equal and reactive to light. EOMs are intact. Oral mucous membranes appear moist. Ear nose throat appears normal otherwise. Neck is supple. Chest wall is nontender. Breath sounds are audible bilaterally. Heart tones are regular. Abdomen is soft and the G-tube is in andrew
--- NOTE | 2022-06-23 15:29 | ECG_ITS ---
Measurements Intervals [place] Rate: 74 P: 80 HI: 165 QRS: 82 QRSD: 94 T: 26 QT: 400 QTc: 444 Interpretive Statements SINUS RHYTHM BORDERLINE ST ABNORMALITY- INFERIOR LEADS BORDERLINE ECG COMPARED TO ECG 10/29/2020 08:24:27 NO SIGNIFICANT CHANGES Electronically Signed On 06-23-2022 16:26:54 CDT by Nas Vides D.O.
[2022-06-23 15:57] LABS: Basophils Absolute Auto 0.03 K/mm3 (0.00-0.10); Basophils Percent Auto 0.5 % (0.0-1.0); Eosinophils Absolute Auto 0.01 K/mm3 (0.02-0.50); Eosinophils Percent Auto 0.2 % (1.0-6.0); Hematocrit 39.2 % (35.0-42.0); Hemoglobin 13.4 g/dL (11.7-13.8); Immature Granulocyte Absolute 0.01 K/mm3 (0.00-0.00); Immature Granulocyte Percent A 0.2 % (0.0-0.0); Lymphocytes Absolute Auto 0.49 K/mm3 (1.10-4.50); Lymphocytes Percent Auto 8.9 % (18.0-42.0); Mean Corpuscular HGB Conc 34.2 g/dL (32.0-36.0); Mean Corpuscular Hemoglobin 33.4 pg (27.0-31.0); Mean Corpuscular Volume 97.8 fL (78.0-102.0); Mean Platelet Volume 10.1 fl (9.2-11.8); Monocytes Absolute Auto 0.34 K/mm3 (0.10-0.90); Monocytes Percent Auto 6.2 % (2.0-11.0); Neutrophils Absolute Auto 4.6 K/mm3 (1.7-7.2); Platelet Count Result 265 K/mm3 (150-420); Red Blood Count 4.01 M/mm3 (4.20-5.40); Red Cell Distribution Width 12.6 % (11.6-14.4); White Blood Count 5.5 K/mm3 (4.8-10.8)
--- NOTE | 2022-06-23 16:01 | PC.NURSE ---
poison control number:[id number] Art. Labs order per Poison control request. repeat tylenol level at 4 hr. since ingestion per poison control at 1845. base repeat for 8 hour at this time.
[2022-06-23 16:06] LABS: Appearance Urine Clear (Clear); Bilirubin Urine Negative (Negative); Blood Urine Negative (Negative); Color Urine Light Yellow (Yellow); Glucose Urine UA Negative (Negative); Ketones Urine Negative (Negative); Leukocyte Esterase Ur Negative LEU/UL (Negative); Nitrate Urine Negative (Negative); Protein Urine Negative (Negative); Specific Grav Ur <= 1.005 (1.010-1.020); Urobilinogen Urine 0.2 mg/dL (0.2-1.0); pH Urine 7.5 (5.0-8.0)
[2022-06-23 16:08] LABS: Add Urine Microscopic? NO
[2022-06-23 16:12] LABS: Amphetamine Screen Urine Negative (Negative); Barbiturate Screen Urine Negative (Negative); Benzodiazepines Screen Urine Negative (Negative); Cannabinoid Screen Urine Negative (Negative); Cocaine Screen Urine Negative (Negative); Methadone Screen Urine Negative (Negative); Opiate Screen Urine Negative (Negative); Phencyclidine Screen Urine Negative (Negative)
[2022-06-23 16:15] LABS: Troponin I 5.4 ng/L (0.00-60.4)
[2022-06-23 16:23] LABS: Alanine Aminotransferase 77 U/L (14-59); Albumin Level 4.2 g/dL (3.4-5.0); Alkaline Phosphatase 93 U/L (46-116); Anion Gap 8 mmol/L (8-16); Aspartate Amino Transferase 66 U/L (15-37); Bilirubin,Total 0.5 mg/dL (0.00-1.00); Blood Urea Nitrogen 18 mg/dL (7-18); Calcium 9.1 mg/dL (8.5-10.1); Carbon Dioxide 31 mmol/L (21-32); Chloride 95 mmol/L (98-108); Estimated Glomerular Filt Rate > 60; Glucose 130 mg/dL (70-99); Osmolality Calculated 281 mOsm/kg (285-295); Salicylate 3.5 mg/dL (2.8-20.0); Sodium 134 mmol/L (136-145); Total Protein 7.8 g/dL (6.4-8.2)
[2022-06-23 16:24] LABS: Acetaminophen < 2 ug/mL (10-30); Ethanol < 3 mg/dL (0-6)
--- NOTE | 2022-06-23 18:29 | PC.NURSE ---
Patient is wide awake and no longer groggy or confused. Daughter states patient is now making since and talking like she normally is. Patient does not remember telling RN and erp that she took anything or that she took meds to try and kill herself. patient states at this time she would never do such a thing and she does not want to harm herself or anyone else. Patient is alert and oriented x4 at this time.
--- NOTE | 2022-06-23 18:38 | PC.NURSE ---
Per poison control patient's liver function is elevated and was not in the past per previous labs from March. Continue to monitor patient and repeat tylenol level and liver enzymes at 2100. If Liver function continues to rise call back to poison control if no change to liver function patient is cleared from poison control
[2022-06-23] MEDS: LORazepam INJ (*CRX) 2 MG/ML VIAL 0.5 MG IV PUSH (19:12)
--- NOTE | 2022-06-23 19:33 | PC.NURSE ---
pt sleeping soundly after medication administration, when O2 sat dropped to 88%. pt put on 1L O2 O2 sat now 97%
[2022-06-23] MEDS: SODIUM CHLORIDE 0.9% IV 1,000 ML 100 ML IV CONT (19:54)
[2022-06-23 21:17] LABS: Alanine Aminotransferase 80 U/L (14-59); Albumin Level 3.9 g/dL (3.4-5.0); Alkaline Phosphatase 90 U/L (46-116); Anion Gap 7 mmol/L (8-16); Aspartate Amino Transferase 61 U/L (15-37); Bilirubin,Total 0.4 mg/dL (0.00-1.00); Blood Urea Nitrogen 15 mg/dL (7-18); Calcium 8.6 mg/dL (8.5-10.1); Carbon Dioxide 31 mmol/L (21-32); Chloride 97 mmol/L (98-108); Estimated Glomerular Filt Rate > 60; Glucose 116 mg/dL (70-99); Osmolality Calculated 281 mOsm/kg (285-295); Potassium 3.7 mmol/L (3.5-5.1); Sodium 135 mmol/L (136-145); Total Protein 7.3 g/dL (6.4-8.2)
--- NOTE | 2022-06-23 21:32 | PC.NURSE ---
Poison control updated on current condition and plan of care.
[2022-06-24] VITALS: BP 80/52; PULSE 88; RESP 18; TEMP 36.1; O2SAT 93
--- NOTE | 2022-06-24 05:26 | PC.NURSE ---
patient is alert and oriented this a.m., she is ambulating to the bathroom with 1 assist. gait steady. verbalizing needs and writting them down as her speech is garbled due to past surgery and CA of the tongue and jaw. she spoke with her daughter this a.m. requesting things from home. she is cooperative with all cares.
[2022-06-24 05:50] LABS: Hematocrit 36.4 % (35.0-42.0); Hemoglobin 12.1 g/dL (11.7-13.8); Mean Corpuscular HGB Conc 33.2 g/dL (32.0-36.0); Mean Corpuscular Hemoglobin 32.6 pg (27.0-31.0); Mean Corpuscular Volume 98.1 fL (78.0-102.0); Mean Platelet Volume 9.6 fl (9.2-11.8); Platelet Count Result 293 K/mm3 (150-420); Red Blood Count 3.71 M/mm3 (4.20-5.40); Red Cell Distribution Width 12.5 % (11.6-14.4); White Blood Count 7.1 K/mm3 (4.8-10.8)
[2022-06-24 06:06] LABS: Alanine Aminotransferase 70 U/L (14-59); Albumin Level 3.6 g/dL (3.4-5.0); Alkaline Phosphatase 82 U/L (46-116); Anion Gap 7 mmol/L (8-16); Aspartate Amino Transferase 52 U/L (15-37); Bilirubin,Total 0.6 mg/dL (0.00-1.00); Blood Urea Nitrogen 13 mg/dL (7-18); Calcium 8.2 mg/dL (8.5-10.1); Carbon Dioxide 31 mmol/L (21-32); Chloride 98 mmol/L (98-108); Estimated CRCL calculation 49 ml/min; Estimated Glomerular Filt Rate > 60; Glucose 87 mg/dL (70-99); Osmolality Calculated 281 mOsm/kg (285-295); Potassium 3.7 mmol/L (3.5-5.1); Sodium 136 mmol/L (136-145)
--- NOTE | 2022-06-24 06:10 | PC.NURSE ---
Edmundo Cruz NP, called to give new orders for a swallow study and change tube feedings to 2 cans BID.
[2022-06-24] MEDS: LEVOTHYROXINE SODIUM 88 MCG TABLET PO (06:12)
[2022-06-24] MEDS: SODIUM CHLORIDE 0.9% IV 1,000 ML 100 ML IV CONT (06:16)
[2022-06-24 08:00] VITALS: BP 96/53; PULSE 70; RESP 14; TEMP 36.6; O2SAT 97
[2022-06-24] MEDS: ENOXAPARIN 40 MG/0.4 ML SYRINGE SUB-Q (08:59)
[2022-06-24] MEDS: amLODIPine BESYLATE 5 MG TABLET 10 MG PO (08:59)
--- NOTE | 2022-06-24 09:19 | PM.SD2 ---
Same Day Admit/Disch: HPI History of Present Illness Chief complaint: unresponsive Narrative: Chaparrita Sinha is a 67 year old female Who presented to ED with altered mental status. Patient has a past medical history mouth cancer, hypertension, hypothyroidism insomnia. According to patient's daughter they found her in her backyard with a soda and possible Tylenol p.m. in a confused state. Today patient is very alert and orientated x4 and notes that she did not take any Tylenol p.m. but she did take an excessive amount and decongestant medication with MiraLax due to her uncontrolled cough increased mucus production and constipation. It was also noted that patient had a episode of a confused state a couple months ago. According to patient and her daughter she spoke to her granddaughter and away that she does not normally speak to her. I recommend the patient get screened for dementia, she does have a family history of dementia. According to patient her mother was diagnosed with dementia. Poison control was contacted concerning the possible overdose of Tylenol p.m.. Patient liver enzymes were elevated they are currently trending down. Patient will recheck her liver enzymes in 3 days with results going to care physician. The patient denies SOB, CP, palpitation, extremity numbness, lightheadedness, dizziness, constipation, diarrhea, chills, or fever. PMFSH Past Medical History Medical History History of cigarette smoking History of mouth cancer July 2009. 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 Hypertension Hypothyroidism Insomnia Surgical History Surgical History History of appendectomy Family History Family History Other Family history non-contributory Social History Social History Smoking packs per day: 1 Smoking cigarettes per day: 20.0 Years smoked: 50 Smoking pack-years: 50.00 Smoking status: Current every day smoker Tobacco type: cigarettes Alcohol intake: never Substance use: never Substance use type: does not use Lack of Transportation: No Lack of Food: Never True Current Housing: I Have Housing Concerned About Future Housing: No Difficulty Paying Gas/Electric Bills: No Difficulty Paying for Meds: No Currently Unemployed: No Education: Don't Know Difficulty w/ Childcare or Family Care: No Living arrangements: with family Additional living arrangements comments: . Lives with . 2 adult children. Spiritual care concerns: No Same Day Admit/Disch: Med Pre-admit Medications Home Medications Medication Instructions Recorded Confirmed Type amlodipine 10 mg tablet See Rx Instructions .Route 03/15/22 06/23/22 Rx .COMPLEX #90 tabs levothyroxine 88 mcg tablet See Rx Instructions .Route 03/17/22 06/23/22 Rx .COMPLEX #60 tabs nut. tx, spec. form, 8 ea feeding tube 3XW 06/23/22 06/23/22 History lac-free,iron-fos 0.08 gram-2 kcal/mL oral liquid (TwoCal HN) albuterol sulfate 90 mcg/actuation 2 puff inhalation QID PRN 06/24/22 Rx aerosol inhaler shortness of breath or wheezing #6.7 grams benzonatate 200 mg capsule 200 mg PO BID PRN cough #30 caps 06/24/22 Rx guaifenesin 400 mg tablet 400 mg PO QID PRN congestion #30 06/24/22 Rx tabs trazodone 50 mg tablet 50 mg PO HS PRN insomnia #30 tabs 06/24/22 Rx Exam Narrative: GENERAL: Frail female, in no apparent distress. HEAD: normocephalic, atraumatic. EYES: PERRL. Sclera clear/white. Vision is grossly intact. EARS: External ears normal, auditory canals clear and without drainage, TMs normal without perforation. Hearing grossly intact. NOSE: External nose normal with no obvious nasal discharge, nares without redness, no rhinorrhea. THROAT: patient is with reconstruction surgery due to c
--- NOTE | 2022-06-24 10:42 | PC.NURSE ---
Pt discharged to home with daughter Lisa. VSS pt AO/3. Discharge instructions given to both pt and daughter. new medication times, dosages, purpose and SE gone over. Follow up appointment to be made by daughter. Both pt and daughter verbalize understanding of instructions. Pt taken to the car in by RN.
--- NOTE | 2022-06-27 11:48 | PC.NURSE ---
Unable to contact for discharge call back.
== END 2022-06-24 10:10 | disposition home or self-care (01) | DRG 948 ==
LOC: CHSED 19:57 → CHS2ND 21:47
PROVIDERS: Nurse Practitioner; Admitting Provider Internal Medicine; Emergency Provider Emergency Medicine; PCP Nurse Practitioner Family; Visit Provider Internal Medicine
DX: I10 Essential (primary) hypertension; E03.9 Hypothyroidism, unspecified; Z93.1 Gastrostomy status; R74.8 Abnormal levels of other serum enzymes; Z87.891 Personal history of nicotine dependence; R41.82 Altered mental status, unspecified; G47.00 Insomnia, unspecified; F17.210 Nicotine dependence, cigarettes, uncomplicated; F41.9 Anxiety disorder, unspecified; Z85.810 Personal history of malignant neoplasm of tongue
CPT/HCPCS: 36415; 80053; 80307; 81003; 84484; 85025; 85027; 93005; 96361; 96374; 99285; A9270; J1650; J2060; J7030

== ENCOUNTER 2022-06-24 13:16 | Emergency (ER) | payer MEDICARE, SELFPAY ==
--- NOTE | ~2022-06-24 | CT_ITS ---
EXAMINATION: CT brain wo con DATE: 06/24/2022 15:29 INDICATION: AMS, INCREASED AGITATION X 2 DAYS HX DEMENTIA . TECHNIQUE: Computed tomography (CT) of the head was performed without intravenous contrast. The mA wa s adjusted according to patient size. Iterative reconstruction technique was employed. The dose-lengt h product was 605.33 mGy-cm. COMPARISON: None. FINDINGS: No acute intracranial hemorrhage or extra-axial fluid collection. No hydrocephalus, mass, or herniation. No acute ischemic infarct. Unremarkable dural venous sinus attenuation. No acute osseous abnormality. Small left maxillary retention cyst or polyp. Bilateral mastoid effusions. The remaining aerated spac es are clear. Moderate atrophy and chronic white matter change. Atherosclerotic intracranial calcification. IMPRESSION: No acute intracranial process. Reviewed, dictated and finalized at location K.
[2022-06-24 13:25] VITALS: BP 133/80; PULSE 65; RESP 20; TEMP 36.8; O2SAT 98
--- NOTE | 2022-06-24 13:38 | ED.AMS ---
HPI - Altered Mental Status General Chief Complaint: Medical Clearance Stated Complaint: altered mental status Source: patient and family Mode of arrival: ambulatory Limitations: no limitations History of Present Illness HPI narrative: 67-year-old female with a history of ex smoking, dementia, depression, hypothyroidism, tongue cancer status post resection and radiation, was brought in yesterday to the ER for agitation and altered mental status. She was trashing things at home. She was taking extra doses of MiraLax and a decongestant. the patient denies suicidal or homicidal ideation. The patient had a workup which was unremarkable except for mildly elevated AST/ ALT. Her drug screen and drug levels were unremarkable.The patient was admitted and monitored until this morning. There was questionable Tylenol overdosage but her Tylenol levels were unremarkable. Patient was alert and oriented during her stay. She was able to set up her own G-tube feeds. She denies suicidal or homicidal ideation. The patient was discharged home. The patient is brought back to the ER by her daughter for -- altered mental status. The daughter states that the patient was tearing up things. -- Patient is forgetful and misplaces things. She misplaced her car keys this morning. -- patient denies suicidal or homicidal ideation. -- The patient is agitated. A few minutes later the patient is quiet and well composed. MD complaint: altered mental status ( The patient had altered mental status yesterday which resolved on admission to the hospital. According to the daughter this has recurred this morning) Timing confirmed by: other ( daughter) Severity: severe Associated symptoms: denies other symptoms Related Data Home Medications Medication Instructions Recorded Confirmed nut. tx, spec. form, 8 ea feeding tube 3XW 06/23/22 06/24/22 lac-free,iron-fos 0.08 gram-2 kcal/mL oral liquid (TwoCal HN) Allergies Allergy/AdvReac Type Severity Reaction Status Date / Time clindamycin Allergy Unknown Unknown Verified 03/15/22 14:42 Review of Systems Review of Systems: All systems reviewed & are unremarkable except as noted in HPI and below Constitutional: Constitutional: Reports as per HPI and Reports no additional constitutional complaints Eyes: Eyes: Reports as per HPI and Reports no additional eye complaints ENT: Reports system reviewed and no additional complaints, except as documented and Reports as per HPI Cardiovascular: Cardiovascular: Reports as per HPI and Reports no additional cardiovascular complaints Respiratory: Respiratory: Reports as per HPI and Reports no additional respiratory complaints Gastrointestinal: Gastrointestinal: Reports as per HPI and Reports no additional gastrointestinal complaints Comments: patient takes nothing by mouth. She is fed by G-tube. Genitourinary: Genitourinary: Reports no additional female genitourinary complaints Musculoskeletal: Musculoskeletal: Reports no additional musculoskeletal complaints and Reports as per HPI Integumentary/Breasts: Skin/Breast: Reports system reviewed and no additional complaints, except as docu and Reports as per HPI Neurologic: Reports system reviewed and no additional complaints, except as documented and Reports as per HPI Psychiatric: Psychiatric: Reports anxiety, Reports confusion and Reports irritability Endocrine: Endocrine: Reports no additional endocrine complaints and Reports as per HPI Hematologic/Lymphatic: Hematologic/Lymphatic: Reports no additional hematologic/lymphatic complaints and Reports as per HPI Allergic/Immunologic: Allergic/Immunologic: Reports no additional allergic/immunologic complaints and Reports as per HPI PMF Past Medical History Medical History History of cigarette smoking History of mouth cancer July 2009. 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 Hypertension Hypothyroidi
--- NOTE | 2022-06-24 14:51 | ECG_ITS ---
Measurements Intervals [place] Rate: 64 P: 86 CA: 147 QRS: 92 QRSD: 89 T: 41 QT: 409 QTc: 424 Interpretive Statements SINUS RHYTHM RIGHT AXIS DEVIATION NONSPECIFIC ST & T-WAVE ABNORMALITY- ANTEROLAT/INF LEADS BORDERLINE ECG COMPARED TO ECG 06/23/2022 15:46:15 NO SIGNIFICANT CHANGES Electronically Signed On 06-24-2022 17:55:02 CDT by Nas Vides D.O.
[2022-06-24 15:17] LABS: Basophils Absolute Auto 0.04 K/mm3 (0.00-0.10); Basophils Percent Auto 0.7 % (0.0-1.0); Eosinophils Absolute Auto 0.04 K/mm3 (0.02-0.50); Eosinophils Percent Auto 0.7 % (1.0-6.0); Hemoglobin 11.5 g/dL (11.7-13.8); Immature Granulocyte Absolute 0.01 K/mm3 (0.00-0.00); Immature Granulocyte Percent A 0.2 % (0.0-0.0); Lymphocytes Absolute Auto 0.55 K/mm3 (1.10-4.50); Lymphocytes Percent Auto 9.9 % (18.0-42.0); Mean Corpuscular HGB Conc 33.8 g/dL (32.0-36.0); Mean Corpuscular Volume 97.4 fL (78.0-102.0); Mean Platelet Volume 9.3 fl (9.2-11.8); Monocytes Absolute Auto 0.45 K/mm3 (0.10-0.90); Monocytes Percent Auto 8.1 % (2.0-11.0); Neutrophils Absolute Auto 4.5 K/mm3 (1.7-7.2); Neutrophils Percent Auto 80.4 % (50.0-70.0); Platelet Count Result 251 K/mm3 (150-420); Red Blood Count 3.49 M/mm3 (4.20-5.40); Red Cell Distribution Width 12.4 % (11.6-14.4); White Blood Count 5.6 K/mm3 (4.8-10.8)
[2022-06-24 15:31] LABS: Partial Thromboplastin Time 32.2 SEC (23.90-30.70); Prothrombin Time 10.7 Seconds (9.50-12.10)
[2022-06-24 15:38] LABS: Lactic Acid Reflex 0.6 mmol/L (0.4-2.0)
[2022-06-24 15:52] LABS: Influenza A QL RT-PCR Negative (Negative); Influenza B QL RT-PCR Negative (Negative); SARS-CoV-2 RNA PCR Negative (Negative)
[2022-06-24 15:55] LABS: Alanine Aminotransferase 68 U/L (14-59); Albumin Level 3.5 g/dL (3.4-5.0); Alkaline Phosphatase 98 U/L (46-116); Ammonia 23 umol/L (11-32); Anion Gap 6 mmol/L (8-16); Aspartate Amino Transferase 52 U/L (15-37); Bilirubin,Total 0.4 mg/dL (0.00-1.00); Blood Urea Nitrogen 21 mg/dL (7-18); Calcium 8.6 mg/dL (8.5-10.1); Carbon Dioxide 32 mmol/L (21-32); Chloride 98 mmol/L (98-108); Estimated CRCL calculation 51 ml/min; Estimated Glomerular Filt Rate > 60; Glucose 112 mg/dL (70-99); NT Pro B Type Natriuretic Pept 335 pg/mL (0-125); Osmolality Calculated 286 mOsm/kg (285-295); Potassium 3.4 mmol/L (3.5-5.1); Sodium 136 mmol/L (136-145); Total Protein 6.8 g/dL (6.4-8.2)
[2022-06-24 16:15] LABS: RSV RNA, RT-PCR Negative (Negative)
[2022-06-24 16:16] LABS: Acetaminophen < 2 ug/mL (10-30)
[2022-06-24 16:17] LABS: Ethanol < 3 mg/dL (0-6); Lipase 36 U/L (16-77); Salicylate 2.7 mg/dL (2.8-20.0); Thyroid Stimulating Hormone 20.68 uIU/mL (0.36-3.74); Troponin I 5.5 ng/L (0.00-60.4)
[2022-06-24 16:30] VITALS: BP 149/97; PULSE 67; RESP 18; O2SAT 97
[2022-06-24 16:43] LABS: Amphetamine Screen Urine Negative (Negative); Barbiturate Screen Urine Negative (Negative); Benzodiazepines Screen Urine Negative (Negative); Cannabinoid Screen Urine Negative (Negative); Cocaine Screen Urine Negative (Negative); Methadone Screen Urine Negative (Negative); Opiate Screen Urine Negative (Negative); Phencyclidine Screen Urine Negative (Negative)
[2022-06-24] MEDS: POTASSIUM BICARBONATE 25 MEQ TABEF 50 MEQ PO (17:36)
[2022-06-24 17:49] VITALS: BP 106/50; PULSE 100; RESP 20; TEMP 37.2; O2SAT 100
[2022-06-24] MEDS: OLANZapine 2.5 MG TABLET PO (17:56)
[2022-06-29 14:35] LABS: T4 Thyroxine 2.8 mcg/dL (5.9-10.3)
== END 2022-06-24 18:01 | disposition home or self-care (01) ==
PROVIDERS: Emergency Provider Internal Medicine Critical Care Medicine; PCP Nurse Practitioner Family
DX: E03.9 Hypothyroidism, unspecified (principal); R74.01 Elevation of levels of liver transaminase levels; F32.A Depression, unspecified; F03.A11 Unspecified dementia, mild, with agitation; I10 Essential (primary) hypertension; F17.210 Nicotine dependence, cigarettes, uncomplicated; D64.9 Anemia, unspecified; Z79.51 Long term (current) use of inhaled steroids; Z85.810 Personal history of malignant neoplasm of tongue; Z92.3 Personal history of irradiation; Z93.1 Gastrostomy status; Z79.899 Other long term (current) drug therapy
CPT/HCPCS: 36415; 70450; 80053; 80307; 82140; 83605; 83690; 83880; 84436; 84443; 84484; 85025; 85610; 85730; 87637; 93005; 99284; A9270

== ENCOUNTER 2022-06-27 08:01 | Outpatient (CLI) | payer MEDICARE, SELFPAY ==
[2022-06-27 08:48] LABS: Alanine Aminotransferase 55 U/L (14-59); Albumin Level 3.7 g/dL (3.4-5.0); Alkaline Phosphatase 108 U/L (46-116); Anion Gap 4 mmol/L (8-16); Aspartate Amino Transferase 35 U/L (15-37); Bilirubin,Total 0.3 mg/dL (0.00-1.00); Blood Urea Nitrogen 21 mg/dL (7-18); Calcium 8.8 mg/dL (8.5-10.1); Carbon Dioxide 36 mmol/L (21-32); Chloride 99 mmol/L (98-108); Estimated Glomerular Filt Rate > 60; Glucose 119 mg/dL (70-99); Osmolality Calculated 292 mOsm/kg (285-295); Sodium 139 mmol/L (136-145); Total Protein 6.6 g/dL (6.4-8.2)
[2022-06-27 13:58] LABS: Hemoglobin A1C 5.5 % (<5.7)
[2022-06-27 14:09] LABS: Vitamin B12 906 pg/mL (193-986)
== END 2022-06-27 08:02 | disposition home or self-care (01) ==
LOC: CHSLAB 08:03
PROVIDERS: PCP Nurse Practitioner Family; Visit Provider Nurse Practitioner
DX: R73.09 Other abnormal glucose (principal); R74.8 Abnormal levels of other serum enzymes; R41.82 Altered mental status, unspecified
CPT/HCPCS: 36415; 80053; 82607; 83036

== ENCOUNTER 2022-07-20 07:10 | Outpatient (CLI) | payer MEDICARE, SELFPAY ==
[2022-07-20 08:14] LABS: Alanine Aminotransferase 23 U/L (14-59); Albumin Level 3.8 g/dL (3.4-5.0); Alkaline Phosphatase 101 U/L (46-116); Anion Gap 6 mmol/L (8-16); Aspartate Amino Transferase 20 U/L (15-37); Bilirubin,Total 0.4 mg/dL (0.00-1.00); Blood Urea Nitrogen 16 mg/dL (7-18); Calcium 8.8 mg/dL (8.5-10.1); Carbon Dioxide 34 mmol/L (21-32); Chloride 97 mmol/L (98-108); Estimated Glomerular Filt Rate > 60; Free T4 Free Thyroxine 0.72 ng/dL (0.76-1.46); Glucose 93 mg/dL (70-99); Osmolality Calculated 285 mOsm/kg (285-295); Sodium 137 mmol/L (136-145); Thyroid Stimulating Hormone 7.53 uIU/mL (0.36-3.74)
== END 2022-07-20 07:11 | disposition home or self-care (01) ==
LOC: CHSLAB 07:11
PROVIDERS: PCP Nurse Practitioner Family; Visit Provider Nurse Practitioner Family
DX: E03.9 Hypothyroidism, unspecified (principal); R41.82 Altered mental status, unspecified
CPT/HCPCS: 36415; 80053; 84439; 84443

== ENCOUNTER 2022-09-13 07:26 | Outpatient (CLI) | payer MEDICARE, SELFPAY ==
[2022-09-13 08:24] LABS: Thyroid Stimulating Hormone 0.36 uIU/mL (0.36-3.74)
== END 2022-09-13 07:27 | disposition home or self-care (01) ==
LOC: CHSLAB 07:28
PROVIDERS: PCP Nurse Practitioner Family; Visit Provider Nurse Practitioner Family
DX: E03.9 Hypothyroidism, unspecified (principal)
CPT/HCPCS: 36415; 84443

== ENCOUNTER 2022-10-25 08:07 | Outpatient (CLI) | payer MEDICARE, SELFPAY ==
[2022-10-25 09:13] LABS: Thyroid Stimulating Hormone 2.01 uIU/mL (0.36-3.74)
== END 2022-10-25 08:08 | disposition home or self-care (01) ==
LOC: CHSLAB 08:08
PROVIDERS: PCP Nurse Practitioner Family; Visit Provider Nurse Practitioner Family
DX: E03.9 Hypothyroidism, unspecified (principal)
CPT/HCPCS: 36415; 84443

== ENCOUNTER 2022-11-20 13:51 | Outpatient (CLI) | payer MEDICARE, SELFPAY | END 2022-11-20 13:52 | disposition home or self-care (01) | LOC: CHSAUDIO 13:54 | PROVIDERS: PCP Nurse Practitioner Family; Visit Provider Nurse Practitioner Family | DX: H90.3 Sensorineural hearing loss, bilateral (principal) | CPT/HCPCS: 92553; 92555; 92567 ==

== ENCOUNTER 2023-03-22 10:13 | Outpatient (CLI) | payer MEDICARE, SELFPAY | END 2023-03-22 10:14 | disposition home or self-care (01) | LOC: CHSLAB 10:15 | PROVIDERS: PCP Nurse Practitioner Family; Visit Provider Nurse Practitioner Family | DX: E03.9 Hypothyroidism, unspecified (principal) | CPT/HCPCS: 36415; 84443 ==

== ENCOUNTER 2023-04-02 12:51 | Outpatient (CLI) | payer MEDICARE, SELFPAY ==
--- NOTE | 2023-04-19 14:55 | WPDPFTINT ---
PFT Procedure Performed PFT Procedure Performed Spirometry with Pre/Post Bronchodilator Diffusing Cap (DLCO) Flow Vol Loop PFT Interpretation DOS: 04/02/2023 REQUESTING: Beatris Shane APRN REASON FOR TESTING: Shortness of breath, tobacco smoker PULMONARY FUNCTION TESTS Results are not reliable for the lung volumes. Multiple attempts were made, however the patient could not perform the maneuvers reliably and in a reproducible manner. Spirometry: Pre bronchodilator FEV1 is 1.30 L, 59%, reduced. Pre bronchodilator FVC is 1.70 L, 62% predicted. The FEV1/FVC ratio is 77%, normal. After bronchodilator, there is no change in the FEV1, 1.30 L, 59%. After bronchodilator, there is a 7% drop in the FVC, 1.82 L, 66%. These are not statistically significant changes. The FEV1/FVC ratio is 71% after bronchodilator. This is still in the normal range. Lung volumes: NOT PERFORMED Diffusion: DLCO is 9.7, 72% predicted, mildly decreased. The DLCO/VA is 2.83, 78%, in the normal range. Flow volume loop: Unremarkable. IMPRESSION: This study shows a reduction in the FEV1, FVC, BUR09-26%; all flows are similarly reduced across the board without airflow obstruction. No lung volumes were obtainable as the patient could not perform this maneuver. This pattern suggests a restrictive impairment although without lung volumes, restriction cannot be confirmed. There is a mild diffusion impairment . There are no prior studies for comparison. Lack of response to bronchodilator should not preclude use if clinically indicated. Vicky Nelson MD
== END 2023-04-02 12:52 | disposition home or self-care (01) ==
LOC: CHSCARD 12:52
PROVIDERS: PCP Nurse Practitioner Family; Visit Provider Nurse Practitioner Family
DX: R06.02 Shortness of breath (principal); Z87.891 Personal history of nicotine dependence; R94.2 Abnormal results of pulmonary function studies
CPT/HCPCS: 94060; 94729

== ENCOUNTER 2023-04-20 09:20 | Outpatient (CLI) | payer MEDICARE, SELFPAY ==
[2023-04-20 10:22] LABS: Thyroid Stimulating Hormone Reflex 5.07 u/IU/mL (0.36-3.74)
[2023-04-20 11:10] LABS: Free T4 Free Thyroxine Reflex 0.75 ng/dL (0.76-1.46)
== END 2023-04-20 09:21 | disposition home or self-care (01) ==
LOC: CHSLAB 09:24
PROVIDERS: PCP Family Medicine; Visit Provider Nurse Practitioner Family
DX: E03.9 Hypothyroidism, unspecified (principal)
CPT/HCPCS: 36415; 84439; 84443

== ENCOUNTER 2023-05-24 09:57 | Outpatient (CLI) | payer MEDICARE, SELFPAY ==
[2023-05-24 11:16] LABS: Thyroid Stimulating Hormone 3.06 uIU/mL (0.36-3.74)
== END 2023-05-24 09:58 | disposition home or self-care (01) ==
LOC: CHSLAB 09:58
PROVIDERS: PCP Nurse Practitioner Family; Visit Provider Nurse Practitioner Family
DX: E03.9 Hypothyroidism, unspecified (principal)
CPT/HCPCS: 36415; 84443

== ENCOUNTER 2023-08-29 08:39 | Outpatient (CLI) | payer MEDICARE, SELFPAY ==
[2023-08-29 08:56] LABS: Basophils Absolute Auto 0.03 K/mm3 (0.00-0.10); Basophils Percent Auto 0.5 % (0.0-1.0); Eosinophils Absolute Auto 0.05 K/mm3 (0.02-0.50); Eosinophils Percent Auto 0.8 % (1.0-6.0); Hematocrit 37.7 % (35.0-42.0); Hemoglobin 12.8 g/dL (11.7-13.8); Immature Granulocyte Absolute 0.02 K/mm3 (0.00-0.00); Immature Granulocyte Percent A 0.3 % (0.0-0.0); Lymphocytes Percent Auto 12.5 % (18.0-42.0); Mean Corpuscular Hemoglobin 32.7 pg (27.0-31.0); Mean Corpuscular Volume 96.4 fL (78.0-102.0); Mean Platelet Volume 9.7 fl (9.2-11.8); Monocytes Absolute Auto 0.31 K/mm3 (0.10-0.90); Monocytes Percent Auto 4.8 % (2.0-11.0); Neutrophils Absolute Auto 5.21 K/mm3 (1.70-7.20); Neutrophils Percent Auto 81.1 % (50.0-70.0); Platelet Count Result 261 K/mm3 (150-420); Red Blood Count 3.91 M/mm3 (4.20-5.40); Red Cell Distribution Width 11.5 % (11.6-14.4); White Blood Count 6.4 K/mm3 (4.8-10.8)
[2023-08-29 09:08] LABS: Hemoglobin A1C 5.4 % (<5.7)
[2023-08-29 09:44] LABS: Alanine Aminotransferase 24 U/L (14-59); Albumin Level 4.3 g/dL (3.4-5.0); Alkaline Phosphatase 95 U/L (46-116); Anion Gap 6 mmol/L (4-12); Aspartate Amino Transferase 27 U/L (15-37); Bilirubin,Total 0.5 mg/dL (0.00-1.00); Blood Urea Nitrogen 15 mg/dL (7-18); Carbon Dioxide 33 mmol/L (21-32); Chloride 93 mmol/L (98-108); Estimated Glomerular Filt Rate > 60; Glucose 87 mg/dL (70-99); Osmolality Calculated 273 mOsm/kg (285-295); Sodium 132 mmol/L (136-145); Thyroid Stimulating Hormone 6.38 uIU/mL (0.36-3.74); Total Protein 7.3 g/dL (6.4-8.2)
[2023-08-29 18:05] LABS: Cholesterol 192 mg/dL (0-200); HDL Direct 57 mg/dL (40-60); LDL Cholesterol Calculated 102 mg/dL (<130); Triglycerides 163 mg/dL (0-150)
== END 2023-08-29 08:40 | disposition home or self-care (01) ==
LOC: CHSLAB 08:41
PROVIDERS: PCP Nurse Practitioner Family; Visit Provider Nurse Practitioner Family
DX: R73.09 Other abnormal glucose (principal); I10 Essential (primary) hypertension
CPT/HCPCS: 36415; 80053; 80061; 83036; 84443; 85025

== ENCOUNTER 2023-08-29 09:00 | Emergency (ER) | payer MEDICARE, SELFPAY ==
[2023-08-29 09:01] VITALS: BP 117/91; PULSE 67; RESP 20; TEMP 36.7; O2SAT 98
--- NOTE | 2023-08-29 09:26 | ED.UPPEXIN ---
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 she wants thumb nail removed. complaint: injury to: right and finger ( Thumb) Onset (ago): day(s) ( 1 day) Other injuries: none Handedness: right Place: home Severity: mild Relieving factors: none Exacerbating factors: none Related Data Home Medications Medication Instructions Recorded Confirmed nut. tx, spec. form, 8 ea feeding tube 3XW 06/23/22 08/29/23 lac-free,iron-fos 0.08 gram-2 kcal/mL oral liquid (TwoCal HN) amlodipine 10 mg tablet 10 mg DAILY 08/29/23 08/29/23 Allergies Allergy/AdvReac Type Severity Reaction Status Date / Time clindamycin Allergy Intermediate rash Verified 08/29/23 09:05 Review of Systems Review of Systems: All systems reviewed & are unremarkable except as noted in HPI and below PMFSH Past Medical History Medical History History of cigarette smoking History of mouth cancer July 2009. 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 Hypertension Hypothyroidism Insomnia Surgical History Surgical History H/O oral surgery History of appendectomy History of mandibular surgery Family History Family History Mother Hypertension Father Hypertension Grandparent Hypertension Other Dementia Other Family history non-contributory Social History Social History Social History: Currently down to 3 cigarettes daily Smoking packs per day: 0.5 Smoking cigarettes per day: 10.0 Years smoked: 50 Smoking pack-years: 25.00 Smoking status: Current every day smoker Tobacco type: cigarettes Alcohol intake: former Substance use: never Substance use type: does not use Lack of Transportation: No Lack of Food: Never True Current Housing: I Have Housing Concerned About Future Housing: No Difficulty Paying Gas/Electric Bills: No Difficulty Paying for Meds: No Currently Unemployed: No Education: Associate Degree Difficulty w/ Childcare or Family Care: No Living arrangements: alone Additional living arrangements comments: . Lives alone. 2 adult children. Occupation/Education: retired Gender identity (if verbalized by the patient): Female Spiritual care concerns: No Exam Narrative: vitals are stable Const: General: no acute distress Nutritional Appearance: thin Orientation/consciousness: patient oriented x3 Limitations: no limitations HENMT: Head: normal to inspection Ears: external ears normal Face/Nose/Sinus: Normal external nose present Face and sinus: normal facial exam Mouth: Yes Normal oral and palatal mucosa present Throat: posterior oropharynx normal Other: chin reconstruction Eyes: Conjunctivae: conjunctivae normal Pupils: Equal, round and reactive pupils present EOM: EOMs intact bilaterally Direct Ophthalmoscopy: no photophobia Neck: Neck: normal visual inspection Other: tracheostomy scar noted Chest: Chest palpation & inspection: normal inspection of the chest Resp: Auscultation: clear to auscultation bilaterally Cardio: Rate: regular rate Rhythm: regular rhythm GI: GI Palp: Yes Soft to palpation Auscultation: normal bowel sounds Other: G-tube in place no tenderness/ rigidity / rebound. : General: Yes no CVA tenderness Back/Spine/Pelvis: Back: no CVA tenderness Skin: General skin exam: normal color Rashes: no rashes Wou
[2023-08-29 10:07] VITALS: BP 135/74; O2SAT 96
== END 2023-08-29 10:11 | disposition home or self-care (01) ==
PROVIDERS: Emergency Provider Internal Medicine Critical Care Medicine; PCP Nurse Practitioner Family
DX: S61.101A Unspecified open wound of right thumb with damage to nail, initial encounter (principal); E03.9 Hypothyroidism, unspecified; I10 Essential (primary) hypertension; Z85.819 Personal history of malignant neoplasm of unspecified site of lip, oral cavity, and pharynx; F17.210 Nicotine dependence, cigarettes, uncomplicated; X58.XXXA Exposure to other specified factors, initial encounter
CPT/HCPCS: 99282

== ENCOUNTER 2023-09-06 08:04 | Outpatient (CLI) | payer MEDICARE, SELFPAY ==
[2023-09-06 09:16] LABS: Thyroid Stimulating Hormone 3.56 uIU/mL (0.36-3.74)
== END 2023-09-06 08:05 | disposition home or self-care (01) ==
LOC: CHSLAB 08:06
PROVIDERS: PCP Nurse Practitioner Family; Visit Provider Nurse Practitioner Family
DX: E03.9 Hypothyroidism, unspecified (principal)
CPT/HCPCS: 36415; 84443

== ENCOUNTER 2023-11-22 08:04 | Outpatient (CLI) | payer MEDICARE, SELFPAY ==
[2023-11-22 09:24] LABS: Alanine Aminotransferase 18 U/L (14-59); Albumin Level 3.9 g/dL (3.4-5.0); Alkaline Phosphatase 113 U/L (46-116); Anion Gap 5 mmol/L (4-12); Aspartate Amino Transferase 22 U/L (15-37); Bilirubin,Total 0.3 mg/dL (0.00-1.00); Blood Urea Nitrogen 15 mg/dL (7-18); Calcium 9.3 mg/dL (8.5-10.1); Carbon Dioxide 35 mmol/L (21-32); Chloride 93 mmol/L (98-108); Estimated Glomerular Filt Rate > 60; Glucose 97 mg/dL (70-99); Osmolality Calculated 276 mOsm/kg (285-295); Potassium 4.3 mmol/L (3.5-5.1); Sodium 133 mmol/L (136-145); Thyroid Stimulating Hormone 2.91 uIU/mL (0.36-3.74); Total Protein 7.5 g/dL (6.4-8.2)
== END 2023-11-22 08:05 | disposition home or self-care (01) ==
LOC: CHSLAB 08:05
PROVIDERS: PCP Nurse Practitioner Family; Visit Provider Nurse Practitioner Family
DX: E03.9 Hypothyroidism, unspecified (principal); E87.8 Other disorders of electrolyte and fluid balance, not elsewhere classified
CPT/HCPCS: 36415; 80053; 84443

== ENCOUNTER 2024-01-11 08:08 | Outpatient (CLI) | payer MEDICARE, SELFPAY ==
--- NOTE | ~2024-01-11 | DEXA_ITS ---
Bone Density Report Name: JUAN CAIN Age: 68 Sex: Female Ethnicity: White Date of : 1955 Indication: postmenopausal; screening for osteoporosis; height loss; cancer; Referring Provider: Preeti Calles Study: Bone densitometry was performed. Exam Date: January 11, 2024 Accession number: [id number] Bone Density: Region BMD T-score Z-score Classification AP Spine(L1, L2, L3) 0.617 -3.6 -1.6 Osteoporosis Femoral Neck (Left) 0.542 -2.8 -1.0 Osteoporosis Total Hip (Left) 0.586 -2.9 -1.4 Osteoporosis Femoral Neck (Right) 0.592 -2.3 -0.5 Osteopenia Total Hip (Right) 0.604 -2.8 -1.3 Osteoporosis Femoral Neck Mean 0.567 -2.5 -0.8 Osteoporosis Total Hip Mean 0.595 -2.8 -1.4 Osteoporosis World Health Organization criteria for BMD impression classify patients as: Normal (T-score at or above -1.0), Osteopenia (T-score between -1.0 and -2.5), or Osteoporosis (T-score at or below -2.5). 10-year Fracture Risk: FRAX not reported because: Some T-score for Spine Total or Hip Total or Femoral Neck at or below -2.5 Clinical Information Provided by Patient: Smokes Has used the following medications: multi Has the following medical conditions: Cancer Patient maximum height was 65 Menopause Age: 44 No regular weight bearing exercise Drinks caffeinated beverages Onset of menses at age 7 Number of children 2 Impression: The patient has osteoporosis, based on the Total Spine T-score. The patient has risk factors, including: smoking. Discussion: INCREASED RISK OF FRACTURE. BONE DENSITY IS UNDESIRABLY LOW AT ONE OR MORE SKELETAL SITES, CONSISTENT WITH POSTMENOPAUSAL OSTEOPOROSIS. This patient's lowest T-score meets the World Health Organization's (WHO) criteria for osteoporosis at one or more sites (T-score -2.5 or below). In untreated patients, the risk of osteoporotic fracture increases approximately two-fold for each 1.0 SD decrease in T-score. Low bone density is not the only risk factor for fracture; also consider factors such as patient's age, frailty or poor health, risk of falling, risk of injury, previous osteoporotic fracture, family history of osteoporosis, cigarette smoking, low body weight, etc. Not everyone with low bone mineral density has osteoporosis; osteomalacia and other metabolic bone disorders should also be considered. Patients who have osteoporosis should be evaluated for specific diseases and conditions (secondary causes) that may cause or contribute to bone loss. The [place] Association of Clinical Endocrinologists (AACE) and National Osteoporosis Foundation (NOF) recommend pharmacologic intervention for all postmenopausal women whose T-score is in this range. The patient should follow a healthful lifestyle (good nutrition with adequate calcium and vitamin D, and appropriate weight-bearing exercise). Follow-Up: Consider a repeat BMD and Vertebral Fracture Assessment (VFA) exam in 2 years or sooner if medically necessary, to reassess this patient's status. Reported by: JERAD on 01/11/2024 8:32:00 AM. Reviewed, dictated and finalized at location A.
== END 2024-01-11 08:09 | disposition home or self-care (01) ==
LOC: CHSIMG 08:09
PROVIDERS: PCP Nurse Practitioner Family; Visit Provider Nurse Practitioner Family
DX: Z78.0 Asymptomatic menopausal state (principal); M81.0 Age-related osteoporosis without current pathological fracture; M85.88 Other specified disorders of bone density and structure, other site
CPT/HCPCS: 77080

== ENCOUNTER 2024-02-04 09:42 | Outpatient (CLI) | payer MEDICARE, SELFPAY ==
[2024-02-04 10:04] VITALS: BP 109/70; PULSE 66; RESP 18; TEMP 36.6; O2SAT 95; BMI 16.9
--- NOTE | 2024-02-04 10:35 | PC.NURSE ---
Infusion unable to be infused. IV unattainable with 3 attempts. Pts would like to wait.
== END 2024-02-04 09:43 | disposition home or self-care (01) ==
LOC: CHSTREATRM 09:45
PROVIDERS: PCP Nurse Practitioner Family; Visit Provider Nurse Practitioner Family
DX: Z53.21 Procedure and treatment not carried out due to patient leaving prior to being seen by health care provider (principal); M81.0 Age-related osteoporosis without current pathological fracture
CPT/HCPCS: 99199; J3489

== ENCOUNTER 2024-02-14 08:37 | Outpatient (CLI) | payer MEDICARE, SELFPAY ==
[2024-02-14 09:59] LABS: Alanine Aminotransferase 23 U/L (14-59); Alkaline Phosphatase 76 U/L (46-116); Anion Gap 5 mmol/L (4-12); Aspartate Amino Transferase 20 U/L (15-37); Bilirubin,Total 0.3 mg/dL (0.00-1.00); Blood Urea Nitrogen 10 mg/dL (7-18); Calcium 9.3 mg/dL (8.5-10.1); Carbon Dioxide 33 mmol/L (21-32); Chloride 97 mmol/L (98-108); Estimated Glomerular Filt Rate > 60; Glucose 93 mg/dL (70-99); Osmolality Calculated 279 mOsm/kg (285-295); Potassium 4.7 mmol/L (3.5-5.1); Sodium 135 mmol/L (136-145); Total Protein 7.4 g/dL (6.4-8.2)
== END 2024-02-14 08:38 | disposition home or self-care (01) ==
LOC: CHSLAB 08:38
PROVIDERS: PCP Nurse Practitioner Family; Visit Provider Nurse Practitioner Family
DX: E87.8 Other disorders of electrolyte and fluid balance, not elsewhere classified (principal)
CPT/HCPCS: 36415; 80053

== ENCOUNTER 2024-03-06 09:38 | Outpatient (CLI) | payer MEDICARE, SELFPAY ==
[2024-03-06 10:06] VITALS: BMI 16.0
[2024-03-06 10:07] VITALS: BP 99/65; PULSE 70; RESP 18; TEMP 36.3; O2SAT 97
--- OUTSIDE RECORDS SUMMARY | 2024-03-06 10:20 | XMS_ITS | Referral Summary ---
Author Organization [facility] s Address [address] [place] [address] Care Team Providers Care Content Architect Name Role Phone Ayush Anthony Primary Care Provider Encounters Date Type Department Care Team Description 01/14/2024 Telephone [facility] [address] [facility] [address] [place] [address] [place] [address] Lily Hernández RN 12/31/2023 Documentation [facility] [address] [facility] [address] [place] [address] [place] [address] Vonda He RMA 12/25/2023 9:30 AM LUBRICATION WORKER Office Visit [facility] [address] [facility] [address] [place] [address] Jesus Ngo MD Aspiration pneumonitis (CMS/HCC) (HCC) (Primary Dx) 12/13/2023 9:08 AM LUBRICATION WORKER - 12/13/2023 11:59 PM LUBRICATION WORKER Hospital Encounter [facility] Radiology [facility] [place] [address] [place], [place] [id number] Tongue cancer (HCC) Discharge Disposition: Discharge to home or self care 12/13/2023 Telephone [facility] Radiology [address] [place] [id number] Susanne Dias, EMMANUELLE from Last 3 Months Allergies Active Allergy Reactions Criticality Noted Date Comments Clindamycin Hives,Itching Medium 02/28/2021 Medications diphenhydrAMINE (BENADRYL) 25 mg capsule Administer per tube 1 tablet/capsule (25 mg total) every 8 (eight) hours as needed for itching or allergies Active amLODIPine (NORVASC) 10 mg tabletIndicatio ns:hypertension Administer per tube 1 tablet (10 mg total) every morning 1 Active adhesive tape (Medipore) 2 X 10 -yard tape Apply 1 each topically as needed (Dressing changes/securin g g-tube) 2 each 3 2 Active acetaminophen (TYLENOL) solution 160 mg/5 mL Administer per tube 31 mL (1,000 mg total) every 6 (six) hours as needed for pain 1500 mL 3 2 Active guaiFENesin (ROBITUSSIN) syrup 100 mg/5 mL Take 20 mL (400 mg total) by mouth 3 (three) times a day as needed for cough 473 mL 3 2 Active traZODone (DESYREL) 50 mg tablet Take 1 tablet (50 mg total) by mouth nightly Active benzonatate (TESSALON) 200 mg capsule Take 1 capsule (200 mg total) by mouth 2 (two) times a day as needed for cough Active levothyroxine (SYNTHROID) 150 mcg tabletIndicatio ns:hypothyroidi sm Administer per tube 1 tablet (150 mcg total) 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 chain 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 before breakfast 30 tablet 3 Active atorvastatin (LIPITOR) 40 mg tablet Take 1 tablet (40 mg total) by mouth daily 30 tablet 11 3 Active aspirin 81 mg chewable tablet Take 1 tablet (81 mg total) by mouth daily 30 tablet 11 3 Active citalopram (CeleXA) suspension 10 mg/5 mL 3 Active levothyroxine (SYNTHROID) 75 mcg tablet 3 Active sertraline (ZOLOFT) 100 mg tablet 4 Active Active Problems Problem Noted Date Diagnosed Date SOB (shortness of breath) 07/26/2023 Aggressive behavior 07/10/2022 Other specified hypothyroidism 06/30/2022 Altered mental status, unspe cified altered mental status type 06/28/2022 History of squamous cell carcinoma 03/18/2021 Overview (03/18/2021): Added automatically from request for surgery [id number] Postoperative or surgical complication 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 Segmental mandibulectomy. Right angle, to left midbody. 2. Left neck exploration. 3. Left osteocutaneous forearm free flap, 6 cm bone, 5x5 cm skin. Microvascular anastomosis to left external carotid and 3.5 immigration paralegal to left external carotid vena comitante. 4. Prophylactic plating radius, 3.5 mm Synthes plate with use of intraoperative x-ray. 5. Left osteocutaneous scapula free flap Flow through flap with anastomosis to distal radial artery and 3.0 immigration paralegal to distal cephalic vein. 6. Mandibular plating with use of 2.0 VSP [place] plate. 7. Open tracheostomy without gildardo flap. 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 - culture obtained by her??HH nurse??on 11/11/20 grew Klebsiella??pneumoniae (S: amox/clav, cefepime, ceftriaxone, cipro, levo, pip/tazo, imipenem, genta, tobra, bactrim, R: amp, amp/sulbactam, cefazolin). - Patient was discharged on ciprofloxacin 500 mg Q12H (tablets to be crushed and given through feeding tube) and clindamycin 300 mg oral solution Q8H - Due to rash from clindamycin, it was stopped. Will start Augmentin 875-125 mg per G tube every 12 hours and continue ciprofloxacin 500 mg every 12 hours. - duration of treatment will depend on timing of fistula closure. - ENT team recommended hyperbaric O2 treatment as outpatient and continuing NPO with tube feeds until resolution of the fistula. - will RTC in 8 weeks. History of malignant neoplasm of mouth 10/07/2020 11/17/2020 Pathologic jaw fracture 10/04/202011/05 Closed fracture of angle of jaw (CMS/HCC) 08/19/2020 11/17/2020 Overview (08/19/2020): Added automatically from request for surgery [id number] Abnormal barium swallow 11/01/201511/05 Immunizations Name Administration Dates Next Due Influenza, Unspecified 11/12/2020 Moderna SARS-CoV-2 Monovalent Vaccination (12+ Y RS) 05/28/2020,04/30/2020 Pfizer SARS-CoV-2 Monovalent Vaccination (12+ Yrs) ARANGO-READY TO USE 07/05/2021 Social History Tobacco Use Types Packs/Day Years Used Date Smoking Tobacco: Every Day Cigarettes 1 3.2 Started: 01/05/2021 Smokeless Tobacco: Never Tobacco Cessation:Ready to Q uit: Not Asked; Counseling Given: Not Answered Comments:quit and 2009 but started again 08/2019 then stopped 08/2020 Social Connection and Isolat ion Panel [NHANES] Answer Date Recorded In a typical week, how many times do you talk on the phone with family, friends, or neighbors? More than three times a week 06/29/2022 How often do you get togethe r with friends or relatives? More than three times a week 06/29/2022 How often do you attend chur ch or denominational services? Patient declined 06/29/2022 Do you belong to any clubs o r organizations such as spiritism groups, unions, fraternal or athletic groups, or school groups? Patient declined 06/29/2022 How often do you attend meet ings of the clubs or organizations you belong to? Patient declined 06/29/2022 Are you , , di vorced, , never , or living with a partner? 06/29/2022 AUDIT-C Answer Date Recorded Q1: How often do you have a drink containing alcohol? Never 12/13/2023 Q2: How many drinks containi ng alcohol do you have on a typical day when you are drinking? Patient does not drink Q3: How often do you have si x or more drinks on one occasion? Never 12/13/2023 Overall Financial Resource Strain (CARDIA) Answe r Date Recorded How hard is it for you to pa y for the very basics like food, housing, medical care, and heating? Somewhat hard 06/29/2022 PHQ-2 Answer Date Recorded PHQ-2 Total Score (If total score is 3 or more points, staff should administer the PHQ-9) 0 06/30/2022 PRAPARE - Transportation Answer Date Re corded In the past 12 months, has l ack of transportation kept you from medical appointments or from getting medications? No 06/06 In the past 12 months, has l ack of transportation kept you from meetings, work, or from getting things needed for daily living? No 06/29/2022 Personal Safety Answer Date Recorded Have you ever been in or are you currently in a harmful physical or emotional relationship or is someone making you feel afraid or unsafe? Denies 12/13/2023 Comments No Sex and Gender Information Value Date Recorded Sex Assigned at Not on file Legal Sex Female 4:48 AM LUBRICATION WORKER Gender Identity Not on file Sexual Orientation Not on file Last Filed Vital Signs Vital Sign Reading Time Taken Comments Blood Pressure 96/60 12/25/2023 8:54 AM LUBRICATION WORKER Pulse 68 12/25/2023 8:54 AM LUBRICATION WORKER Temperature 36.2 ??C (97.2 ??F) 12/25/2023 8:54 AM CS T Respiratory Rate 16 12/25/2023 8:54 AM LUBRICATION WORKER Oxygen Saturation 97% 12/25/2023 8:54 AM LUBRICATION WORKER Inhaled Oxygen Concentration - - Weight 41.8 kg (92 lb 3.2 oz) 12/25/2023 8:54 AM LUBRICATION WORKER Height 160 cm (5' 2.99 ) 12/25/2023 8:54 AM LUBRICATION WORKER Body Mass Index 16.34 12/25/2023 8:54 AM LUBRICATION WORKER Plan of Treatment Not on file Medical Devices Implanted Type Area Binder Folder Operator Device Identifier Shelf Expiration Date Model / Serial / Lot Synthes Lcp Combi [id number] 14 Hole Limit Contact Taper End Plate Bone 223.641 - [id number] Implanted:Qty: 1 on 05/13/2021 by Suyapa Santillan MD at [facility] Plate Synthes I 223.641 / / Garn[employer]ian [id number] Clayton Microvascular 2mm Ring Pin Protective Cover Jaw Assembly Latex Free - [id number] Implanted:Qty: 1 on 10/07/2020 by Leif Coe MD PhD at [facility] N/A: Mandible [facility] 05/24/2025 [id number] / / [id number] Probe Doppler 17.4cm Standard Cuff Implantable 20mhz Latex Free Sterile Microvascular Anastomoses [place] [id number] - [id number] Implanted:Qty: 1 on 05/13/2021 by Suyapa Santillan MD at [facility] Neck [employer] [id number] 12/06/2023 [id number] / / [id number] Description:Doppler wire cut and secured with Tegaderm prior to discharge. To be removed at follow-up by Dr. Santillan. [place] Craniomaxillofaci al Leibinger Pettigrew 2 2.3mm 8mm Lock Cross Pin Maxillofacial [id number] - [id number] Implanted:Qty: 7 on 05/13/2021 by Suyapa Santillan MD at [facility] Mandible [place] Craniomaxillofacial [id number] / / Shruti Craniomaxillofaci al Leibinger Pettigrew 2 2.3mm 10mm Lock Cross Pin Maxillofacial [id number] - [id number] Implanted:Qty: 1 on 05/13/2021 by Suyapa Santillan MD at [facility] Mandible Shruti Craniomaxillofacial [id number] / / [place] Craniomaxillofaci al Leibinger Pettigrew 2 2mm 6mm Lock Cross Pin Maxillofacial Screw 50- - [id number] Implanted:Qty: 6 on 05/13/2021 by Suyapa Santillan MD at [facility] Mandible [place] Craniomaxillofacial [id number] / / Chroma Allian [id number] Clayton Microvascular 3mm Ring Pin Protective Cover Jaw Assembly Latex Free - [id number] Implanted:Qty: 1 on 05/13/2021 by Suyapa Santillan MD at [facility] Right: Neck Chroma Allalisson [id number] 11/09/2025 [id number] / / [id number] Saygus Probe Doppler 17.4cm Standard Cuff Implantable 20mhz Latex Free Sterile Microvascular Anastomoses [place] [id number] - [id number] Implanted:Qty: 1 on 05/13/2021 by Suyapa Santillan MD at [facility] Right: Neck [employer]gus [id number] 11/05/2023 [id number] / / [id number] Description:Doppler wire cut and secured with Tegaderm prior to discharge. To be removed at follow-up by Dr. Santillan. Synthes 204.816 3.5mm 6mm 16mm 2.5mm Self Tap Small Hexagonal Socket Low Profile - [id number] Implanted:Qty: 3 on 05/13/2021 by Suyapa Santillan MD at [facility] Synthes I 204.816 / / Synthes 204.818 3.5mm 6mm 18mm 2.5mm Self Tap Small Hexagonal Socket Low Profile - [id number] Implanted:Qty: 1 on 05/13/2021 by Suyapa Santillan MD at [facility] Synthes I 204.818 / / Explanted Type Area Binder Folder Operator Device Identifier Shelf Expiration Date Model / Serial / Lot [place] Craniomaxillofaci [place] [id number] Leibinger Pettigrew 2 2.7mm 8mm Lock Emergency Cross Pin - [id number] Implanted:Qty: 1 on 10/07/2020 by Leif Coe MD PhD at [facility] Explanted:Qty: 1 on 05/13/2021 by Suyapa Santillan MD at [facility] Screw N/A: Mandible Shruti Craniomaxillofacial [id number] / / Saygus [id number] Probe Doppler 17.4cm Standard Cuff Implantable 20mhz Latex Free Sterile Microvascular Anastomoses [place] - [id number] Implanted:Qty: 1 on 10/07/2020 by Leif Coe MD PhD at [facility] Explanted:Qty: 1 on 10/14/2020 by Lyndsay Mckeon PA N/A: Neck [employer] [id number] 07/06/19 24 [id number] / / [id number] Shruti Craniomaxillofaci al [id number] Leibinger Pettigrew 2 2mm 6mm Lock Cross Pin Maxillofacial Screw - [id number] Implanted:Qty: 3 on 10/07/2020 by Leif Coe MD PhD at [facility] Explanted:Qty: 3 on 05/13/2021 by Suyapa Santillan MD at [facility] N/A: Mandible [place] Craniomaxillofacial [id number] / / Shruti Craniomaxillofaci al [id number] Leibinger Pettigrew 2 2mm 8mm Lock Cross Pin Mandibular Screw - [id number] Implanted:Qty: 2 on 10/07/2020 by Leif Coe MD PhD at [facility] Explanted:Qty: 2 on 05/13/2021 by Suyapa Santillan MD at [facility] N/A: Mandible Shruti Craniomaxillofacial [id number] / / [place] Craniomaxillofaci al [id number] Leibinger Pettigrew 2 2mm 10mm Lock Cross Pin Maxillofacial Screw - [id number] Implanted:Qty: 6 on 10/07/2020 by Leif Coe MD PhD at [facility] Explanted:Qty: 6 on 05/13/2021 at [facility] N/A: Mandible [place] Craniomaxillofacial [id number] / / Shruti Craniomaxillofaci al [id number] Leibinger Pettigrew 2 2mm 12mm Lock Cross Pin Maxillofacial Screw - [id number] Implanted:Qty: 4 on 10/07/2020 by Leif Coe MD PhD at [facility] Explanted:Qty: 4 on 05/13/2021 at [facility] N/A: Mandible [place] Craniomaxillofacial [id number] / / Procedures Procedure Name Priority Date/Time Associated Diagnosis Comments CHANGE G TUBE Schedule Routine, Read Routine (OP Routine) 12/13/2023 11:00 AM LUBRICATION WORKER Tongue cancer (HCC) from Last 3 Months Results * IR Change G Tube (12/13/2023 11:00 AM LUBRICATION WORKER) Anatomical Region Laterality Modality Body N/A X-Ray Angiograph y 12/13/2023 11:0 9 AM LUBRICATION WORKER Impressions 12/13/2023 12:27 PM LUBRICATION WORKER Successful percutaneous 18-Chinese 2 cm gastrostomy catheter replacement. Dictated by: Arvind Donohue MD The radiology attending physician has personally reviewed this study, and had reviewed and/or edited this written report and agrees with it. Electronically signed by: Mani King M.D. Narrative 12/13/2023 12:27 PM LUBRICATION WORKER EXAMINATION: ??GASTROSTOMY TUBE EXCHANGE/REPLACEMENT HISTORY/INDICATION: ??68-year-old female with tongue cancer status post surgery presents for dislodged G bottom (18 Fr 2 cm). ATTENDING PRESENCE: Mani King M.D., the attending radiologist was present from the beginning to the end of the procedure. ?? SEDATION: ??The patient did not require conscious sedation for the procedure. TECHNIQUE: ??The risks, benefits and alternatives were discussed and informed consent was obtained. Prior to beginning the procedure, Pettigrew Protocol was performed to confirm the patient's identity and the planned procedure. ??The fluoroscopy time has been recorded in the electronic medical record. A guidewire was passed through the mature tract and placed in the stomach. A 18-Chinese 2 cm stoma gastrostomy tube was placed with its tip in the body of the stomach. Contrast injection confirmed appropriate positioning of the catheter within the body of the stomach. ESTIMATED BLOOD LOSS: Minimal. CONDITION: Stable DISCHARGED TO: home. FINDINGS: ??Fluoroscopic spot image demonstrates the gastrostomy catheter with its tip in the body of the stomach. ??No complications are seen. Procedure Note Mani iKng MD - 12/13/2023 EXAMINATION: GASTROSTOMY TUBE EXCHANGE/REPLACEMENT HISTORY/INDICATION: 68-year-old female with tongue cancer status post surgery presents for dislodged G bottom (18 Fr 2 cm). ATTENDING PRESENCE: Mani King M.D., the attending radiologist was present from the beginning to the end of the procedure. SEDATION: The patient did not require conscious sedation for the procedure. TECHNIQUE: The risks, benefits and alternatives were discussed and informed consent was obtained. Prior to beginning the procedure, Pettigrew Protocol was performed to confirm the patient's identity and the planned procedure. The fluoroscopy time has been recorded in the electronic medical record. A guidewire was passed through the mature tract and placed in the stomach. A 18-Chinese 2 cm stoma gastrostomy tube was placed with its tip in the body of the stomach. Contrast injection confirmed appropriate positioning of the catheter within the body of the stomach. ESTIMATED BLOOD LOSS: Minimal. CONDITION: Stable DISCHARGED TO: home. FINDINGS: Fluoroscopic spot image demonstrates the gastrostomy catheter with its tip in the body of the stomach. No complications are seen. IMPRESSION: Successful percutaneous 18-Chinese 2 cm gastrostomy catheter replacement. Dictated by: Arvind Donohue MD The radiology attending physician has personally reviewed this study, and had reviewed and/or edited this written report and agrees with it. Electronically signed by: Mani King M.D. Valdemar Solitario MD IMG IR PROCEDURES Final Resul t from Last 3 Months Insurance MEDICARE [employer] [facility] MED[facility] Address: [facility] [place] [address] [place] [address] [employer] [facility] Address: [address] [address] [place] [address] [facility] MEDICARE [employer] [facility] Address: [address] [address] [place] [address] MEDICARE SOLUTIONS Advance Directives For more information, please contact: [phone] * Full Code (Latest Code Status on File) Date Activated Date Inactivated Comments 07/23/2023 10:53 AM 07/24/2023 4:45 AM * LIMITED - No CPR Date Activated Date Inactivated Comments 07/11/2022 10:01 AM 07/12/2022 5:50 PM Question Answer Comments Discussed with the following attending physician : Dr. Brumfield. * Full Code Date Activated Date Inactivated Comments 07/10/2022 7:00 PM 07/11/2022 10:01 AM * LIMITED - No CPR Date Activated Date Inactivated Comments 06/28/2022 2:37 PM 07/04/2022 8:45 PM Question Answer Comments Provide aggressive medical m anagement before a full cardiopulmonary arrest occurs. Use antibiotics, IV Fluids, and medical treatment unless specifically selected below: No intubation * Full Code Date Activated Date Inactivated Comments 06/28/2022 11:07 AM 06/28/2022 2:37 PM Care Teams Content Architect Relationship Specialty Start Date End Date Ayush Anthony DO [address] [place] [address] PCP - General 11/15/20
--- OUTSIDE RECORDS SUMMARY | 2024-03-06 10:20 | XMS_ITS | Encounter Summary ---
Author Organization [facility] Healthcare Address [address] [place] [address] Care Team Providers Care Nutrition Helper Name Role Phone Ayush Anthonyrish Primary Care Provider Encounter Details Date Type Department Care Team (Late st Contact Info) Description 12/13/2023 Telephone [facility] Radiology [address] [place] [address] Susanne Dias RN Social History Tobacco Use Types Packs/Day Years Used Date Smoking Tobacco: Every Day Cigarettes 1 3.2 Started: 01/05/2021 Smokeless Tobacco: Never Comments:quit and 2009 but s tarted again 08/2019 then stopped 08/2020 Social Connection [...] often do you attend chur ch or bahai services? 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
--- OUTSIDE RECORDS SUMMARY | 2024-03-06 10:20 | XMS_ITS | Encounter Summary ---
Author Organization [facility] Address [address] [place] [address] Care Team Providers Care Direct Marketing Coordinator Name Role Phone GermandannielleAyushrish Primary Care Provider Encounter Details Date Type Department Care Team (Late st Contact Info) Description 04/07/2022 Telephone [facility] [address] [place] [address] Eunice Denise RN Social History Tobacco Use Types Packs/Day Years Used Date Smoking Tobacco: Every Day Cigarettes 0.3 3.2 Started: 01/05/2021 Smokeless Tobacco: Never Comments:quit and 2009 but s tarted again 08/2019 then stopped 08/2020 AUDIT-C Answer Date Recorded Q1: How often do you have a drink containing alcohol? Never 12/23/2021 Q2: How many drinks containi ng alcohol do you have on a typical day when you are drinking? Patient does not drink Q3: How often do you have si x or more drinks on one occasion? Never 12/23/2021 Comments No Sex and Gender Information Value Date Recorded Sex Assigned at Not on file Legal Sex Female 4:48 AM TOUR NARRATOR Gender Identity Not on file Sexual Orientation Not on file documented as of this encounter Plan of Treatment Not on file documented as of this encounter Visit Diagnoses Not on filedocumented in this encounter Additional Health Concerns Infection Onset Date Last Indicated Resolved Time MDR gram neg/ESBL Comment:Criteria met. 05/13/2021 05/13/2021 06/29/2022 7:58 AM CDT documented as of this encounter Care Teams Direct Marketing Coordinator Relationship Specialty Start Date End Date Ayush Anthony DO [address] [place] [address] PCP - General 11/15/20 documented as of this encounter
--- OUTSIDE RECORDS SUMMARY | 2024-03-06 10:20 | XMS_ITS | Clinical Summary ---
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 Segmental mandibulectomy. Right angle, to left midbody. 2. Left neck exploration. 3. Left osteocutaneous forearm free flap, 6 cm bone, 5x5 cm skin. Microvascular anastomosis to left external carotid and 3.5 communications advisor to left external carotid vena comitante. 4. Prophylactic plating radius, 3.5 mm Synthes plate with use of intraoperative x-ray. 5. Left osteocutaneous scapula free flap Flow through flap with anastomosis to distal radial artery and 3.0 communications advisor to distal cephalic vein. 6. Mandibular plating with use of 2.0 VSP Echo plate. 7. Open tracheostomy without gildardo flap. 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 [address] Medicine [address]th [place] [address] [place] [address] Lily Hernández RN 12/31/2023 Documentation [facility] [address]th [place] [address] [place] [address] Vonda He RMA 12/25/2023 9:30 AM SILICA FILTER OPERATOR Office Visit [facility]monary [address] [place] [address] Jesus Ngo MD Aspiration pneumonitis (CMS/HCC) (HCC) (Primary Dx) 12/13/2023 9:08 AM SILICA FILTER OPERATOR - 12/13/2023 11:59 PM SILICA FILTER OPERATOR Hospital Encounter [facility] Radiology [facility] [place] [address] [place] [address] Tongue cancer (HCC) Discharge Disposition: Discharge to home or self care 12/13/2023 Telephone [facility] Radiology [address] [place] [address] Susanne Dias RN from Last 3 Months Immunizations Name Administration Dates Next Due Influenza, Unspecified 11/12/2020 Moderna SARS-CoV-2 Monovalent Vaccination (12+ Y RS) 05/28/2020,04/30/2020 Pfizer SARS-CoV-2 Monovalent Vaccination (12+ Yrs) ARANGO-READY TO USE 07/05/2021 Surgical History Surgery Date Site/Laterality Comments APPENDECTOMY FIBULAR FREE FLAP IR G TUBE PLACEMENT PERCUTANEOUS 11/26/2020 N/A CHANGE G TUBE 03/21/2021 N/A CHANGE G TUBE 12/23/2021 N/A CHANGE G TUBE 06/06/2022 N/A FL FLUORO GUIDED LUMBAR PUNCTURE 06/29/2022 Right CHANGE G TUBE 07/23/2023 N/A CHANGE G TUBE 08/10/2023 N/A CHANGE G TUBE 12/13/2023 N/A Medical History Medical History Date Comments Personal history of malignan t neoplasm of unspecified site of lip, oral cavity, and pharynx History of malignant neoplas m of floor of mouth - (Added by TW Conv) Cancer (CMS/HCC) (HCC) HTN (hypertension) History of radiation therapy Thyroid disease Hypothyroidism Family History Medical History Relation Name Comments Cancer Father Family history of malignant neoplasm - (Added by TW Conv) Relation Name Status Comments Father Social History Tobacco Use Types Packs/Day Years [...] often do you attend chur ch or cheondoism services? Patient declined 06/29/2022 Do you belong to any clubs o r organizations such as hinduism groups, unions, fraternal or athletic groups, or [...] on file Legal Sex Female 4:48 AM SILICA FILTER OPERATOR Gender Identity Not on file Sexual Orientation Not on file Obstetrics History Comments Post Menopause Last Filed Vital Signs Vital Sign Reading Time Taken Comments Blood Pressure 96/60 12/25/2023 8:54 AM SILICA FILTER OPERATOR Pulse 68 12/25/2023 8:54 AM SILICA FILTER OPERATOR Temperature 36.2 ??C (97.2 ??F) 12/25/2023 8:54 AM CS T Respiratory Rate 16 12/25/2023 8:54 AM SILICA FILTER OPERATOR Oxygen Saturation 97% 12/25/2023 8:54 AM SILICA FILTER OPERATOR Inhaled Oxygen Concentration - - Weight 41.8 kg (92 lb 3.2 oz) 12/25/2023 8:54 AM SILICA FILTER OPERATOR Height 160 cm (5' 2.99 ) 12/25/2023 8:54 AM SILICA FILTER OPERATOR Body Mass Index 16.34 12/25/2023 8:54 AM SILICA FILTER OPERATOR Plan of Treatment Health Maintenance Due Date Last Done Comments Breast Cancer Screening-Mammogram 1954 Colon Cancer Screening-Colonoscopy 1955 Hepatitis C Screening 1955 Osteoporosis Screening-Bone Density Scan 1954 Pneumococcal vaccine 65+ (1 of 2 - PCV) 1960 DTaP/Tdap/Td Vaccine (1 - Tdap) 1965 Hepatitis B Screening 1972 Zoster Vaccine (1 of 2) 2004 Well Visit 65+ 06/21/2019 Depression Screening 06/29/2023 06/28/2022 Covid-19 Vaccine (5 - 2023-2 5 season) 2023 07/05/2021, 01/18/2021, 05/28/2020, Additional history exists Influenza Vaccine (#1) 2023 11/12/2020 Fall Risk Assessment 12/12/2024 12/13/2023 Medical Devices Implanted Type Area Panel Cutter Device Identifier Shelf Expiration Date Model / Serial / Lot Synthes Lcp Combi [id number] 14 Hole Limit Contact Taper End Plate Bone 223.641 - [id number] Implanted:Qty: 1 on 05/13/2021 by Suyapa Santillan MD at [facility] Plate Synthes I 223.641 / / Newsyian [id number] Boundary Microvascular 2mm Ring Pin Protective Cover Jaw Assembly Latex Free - [id number] Implanted:Qty: 1 on 10/07/2020 by Leif Coe MD PhD at [facility] N/A: Mandible Bovie [employer] Allian 05/24/2025 [id number] / / [employer] Probe Doppler 17.4cm Standard Cuff Implantable 20mhz Latex Free Sterile Microvascular Anastomoses Belkis [id number] - [id number] Implanted:Qty: 1 on 05/13/2021 by Suyapa Santillan MD at [facility] Neck [employer] [id number] 12/06/2023 [id number] / / [id number] Description:Doppler wire cut and secured with Tegaderm prior to discharge. To be removed at follow-up by Dr. Santillan. Shruti Craniomaxillofaci al Leibinger [place] 2 2.3mm 8mm Lock Cross Pin Maxillofacial [id number] - [id number] Implanted:Qty: 7 on 05/13/2021 by Suyapa Santillan MD at [facility] Mandible Echo Craniomaxillofacial [id number] / / Echo Craniomaxillofaci al Leibinger [place] 2 2.3mm 10mm Lock Cross Pin Maxillofacial [id number] - [id number] Implanted:Qty: 1 on 05/13/2021 by Suyapa Santillan MD at [facility] Mandible Shruti Craniomaxillofacial [id number] / / Shruti Craniomaxillofaci al Leibinger [place] 2 2mm 6mm Lock Cross Pin Maxillofacial Screw 50 - [id number] Implanted:Qty: 6 on 05/13/2021 by Suyapa Santillan MD at [facility] Mandible Shruti Craniomaxillofacial 50 / / Newsyian [id number] Boundary Microvascular 3mm Ring Pin Protective Cover Jaw Assembly Latex Free - [id number] Implanted:Qty: 1 on 05/13/2021 by Suyapa Santillan MD at [facility] Right: Neck [employer] [id number] 11/09/2025 [id number] / / [id number] [employer] Probe Doppler 17.4cm Standard Cuff Implantable 20mhz Latex Free Sterile Microvascular Anastomoses Belkis [id number] - [id number] Implanted:Qty: 1 on 05/13/2021 by Suyapa Santillan MD at [facility] Right: Neck [employer] [id number] 11/05/2023 [id number] / / [id number] Description:Doppler wire cut and secured with Tegaderm prior to discharge. To be removed at follow-up by Dr. Santillan. Synthes 204.816 3.5mm 6mm 16mm 2.5mm Self Tap Small Hexagonal Socket Low Profile - [id number] Implanted:Qty: 3 on 05/13/2021 by Suyapa Santillan MD at [facility] Synthes I 204.816 / / Synthes 204.818 3.5mm 6mm 18mm 2.5mm Self Tap Small Hexagonal Socket Low Profile - [id number] Implanted:Qty: 1 on 05/13/2021 by Suyapa Santillan MD at [facility] Synthes I 204.818 / / Explanted Type Area Panel Cutter Device Identifier Shelf Expiration Date Model / Serial / Lot Shruti Craniomaxillofaci al [id number] Leibinger [place] 2 2.7mm 8mm Lock Emergency Cross Pin - [id number] Implanted:Qty: 1 on 10/07/2020 by Leif Coe MD PhD at [facility] Explanted:Qty: 1 on 05/13/2021 by Suyapa Santillan MD at [facility] Screw N/A: Mandible Echo Craniomaxillofacial [id number] / / [employer] [id number] Probe Doppler 17.4cm Standard Cuff Implantable 20mhz Latex Free Sterile Microvascular Anastomoses [place] - [id number] Implanted:Qty: 1 on 10/07/2020 by Leif Coe MD PhD at [facility] Explanted:Qty: 1 on 10/14/2020 by Lyndsay Mckeon PA N/A: Neck [employer] [id number] 07/06/19 [id number] / / [id number] Echo Craniomaxillofaci al [id number] Leibinger [place] 2 2mm 6mm Lock Cross Pin Maxillofacial Screw - [id number] Implanted:Qty: 3 on 10/07/2020 by Leif Coe MD PhD at [facility] Explanted:Qty: 3 on 05/13/2021 by Suyapa Santillan MD at [facility] N/A: Mandible Shruti Craniomaxillofacial [id number] / / Echo Craniomaxillofaci al [id number] Leibinger [place] 2 2mm 8mm Lock Cross Pin Mandibular Screw - [id number] Implanted:Qty: 2 on 10/07/2020 by Leif Coe MD PhD at [facility] Explanted:Qty: 2 on 05/13/2021 by Suyapa Santillan MD at [facility] N/A: Mandible Echo Craniomaxillofacial [id number] / / Shruti Craniomaxillofaci al [id number] Leibinger [place] 2 2mm 10mm Lock Cross Pin Maxillofacial Screw - [id number] Implanted:Qty: 6 on 10/07/2020 by Leif Coe MD PhD at [facility] Explanted:Qty: 6 on 05/13/2021 at [facility] N/A: Mandible Echo Craniomaxillofacial [id number] / / Shruti Craniomaxillofaci al [id number] Leibinger [place] 2 2mm 12mm Lock Cross Pin Maxillofacial Screw - [id number] Implanted:Qty: 4 on 10/07/2020 by Leif Coe MD PhD at [facility] Explanted:Qty: 4 on 05/13/2021 at [facility] N/A: Mandible Echo Craniomaxillofacial [id number] / / Procedures Procedure Name Priority Date/Time Associated Diagnosis Comments CHANGE G TUBE Schedule Routine, Read Routine (OP Routine) 12/13/2023 11:00 AM SILICA FILTER OPERATOR Tongue cancer (HCC) from Last 3 Months Results * IR Change G Tube (12/13/2023 11:00 AM SILICA FILTER OPERATOR) Anatomical Region Laterality Modality Body N/A X-Ray Angiograph y 12/13/2023 11:0 9 AM SILICA FILTER OPERATOR Impressions 12/13/2023 12:27 PM SILICA FILTER OPERATOR Successful percutaneous 18-Monegasque 2 cm gastrostomy catheter replacement. Dictated by: Arvind Donohue MD The radiology attending physician has personally reviewed this study, and had reviewed and/or edited this written report and agrees with it. Electronically signed by: Mani King M.D. Narrative 12/13/2023 12:27 PM SILICA FILTER OPERATOR EXAMINATION: ??GASTROSTOMY TUBE EXCHANGE/REPLACEMENT HISTORY/INDICATION: ??68-year-old female [...] was obtained. Prior to beginning the procedure, [place] Protocol was performed to confirm the patient's identity and the planned procedure. ??The fluoroscopy time has been recorded in the electronic medical record. A guidewire was passed through the mature tract and placed in the stomach. A 18-Monegasque 2 cm stoma gastrostomy tube was placed with its tip in the body of the stomach. Contrast injection confirmed appropriate positioning of the catheter within the body of the stomach. ESTIMATED BLOOD LOSS: Minimal. CONDITION: Stable DISCHARGED TO: home. FINDINGS: ??Fluoroscopic spot image demonstrates the gastrostomy catheter with its tip in the body of the stomach. ??No complications are seen. Procedure Note Mani King MD - 12/13/2023 EXAMINATION: GASTROSTOMY TUBE EXCHANGE/REPLACEMENT [...] was obtained. Prior to beginning the procedure, [place] Protocol was performed to confirm the patient's identity and the planned procedure. The fluoroscopy time has been recorded in the electronic medical record. A guidewire was passed through the mature tract and placed in the stomach. A 18-Monegasque 2 cm stoma gastrostomy tube was placed with its tip in the body of the stomach. Contrast injection confirmed appropriate positioning of the catheter within the body of the stomach. ESTIMATED BLOOD LOSS: Minimal. CONDITION: Stable DISCHARGED TO: home. FINDINGS: Fluoroscopic spot image demonstrates the gastrostomy catheter with its tip in the body of the stomach. No complications are seen. IMPRESSION: Successful percutaneous 18-Monegasque 2 cm gastrostomy catheter replacement. Dictated by: Arvind Donohue MD The radiology attending physician has personally reviewed this study, and had reviewed and/or edited this written report and agrees with it. Electronically signed by: Mani King M.D. Valdemar Solitario MD IMG IR PROCEDURES Final Resul t from Last 3 Months Insurance [employer] [place] [id number] [place] [address] [place] [id number] [employer] Advance Directives For more information, please contact: [phone] * Full Code (Latest Code Status on [...] 11:07 AM 06/28/2022 2:37 PM Care Teams Transmitter Engineer In Charge Relationship Specialty Start Date End Date Ayush Anthony DO [address] [place] [address] PCP - General 11/15/20
[2024-03-06] MEDS: ZOLEDRONIC ACID 5 MG/100 ML 100 ML 400 MG IVPB (10:27)
== END 2024-03-06 09:39 | disposition home or self-care (01) ==
PROVIDERS: PCP Nurse Practitioner Family; Visit Provider Nurse Practitioner Family
DX: M81.0 Age-related osteoporosis without current pathological fracture (principal)
CPT/HCPCS: 96365; 96374; J3489

== ENCOUNTER 2024-03-13 08:07 | Outpatient (CLI) | payer MEDICARE, SELFPAY ==
[2024-03-13 09:43] LABS: Alanine Aminotransferase 23 U/L (14-59); Albumin Level 3.8 g/dL (3.4-5.0); Alkaline Phosphatase 96 U/L (46-116); Anion Gap 7 mmol/L (4-12); Aspartate Amino Transferase 20 U/L (15-37); Bilirubin,Total 0.3 mg/dL (0.00-1.00); Blood Urea Nitrogen 10 mg/dL (7-18); Carbon Dioxide 32 mmol/L (21-32); Chloride 96 mmol/L (98-108); Estimated Glomerular Filt Rate > 60; Glucose 93 mg/dL (70-99); Osmolality Calculated 279 mOsm/kg (285-295); Potassium 4.4 mmol/L (3.5-5.1); Sodium 135 mmol/L (136-145); Thyroid Stimulating Hormone 1.85 uIU/mL (0.36-3.74); Total Protein 7.7 g/dL (6.4-8.2)
== END 2024-03-13 08:08 | disposition home or self-care (01) ==
LOC: CHSLAB 08:08
PROVIDERS: PCP Nurse Practitioner Family; Visit Provider Nurse Practitioner Family
DX: E03.9 Hypothyroidism, unspecified (principal); E87.8 Other disorders of electrolyte and fluid balance, not elsewhere classified
CPT/HCPCS: 36415; 80053; 84443

== ENCOUNTER 2024-05-07 08:21 | Outpatient (CLI) | payer MEDICARE, SELFPAY ==
--- OUTSIDE RECORDS SUMMARY | 2024-05-07 08:34 | XMS_ITS | Clinical Summary ---
Author Organization [facility] Address [address] [place] [address] Care Team Providers Care Brazer Assembler Name Role Phone GermandannielleAyushrish Primary Care Provider [...] per tube 1 tablet (150 mcg total) private sector executive before breakfast 30 tablet 3 Active atorvastatin [...] Active Problems Problem Noted Date Diagnosed Date Aspiration pneumonitis 04/29/2024 SOB (shortness of breath) 07/26/2023 Aggressive behavior 07/10/2022 Other specified hypothyroidism 06/30/2022 Altered mental status, unspe cified altered mental status type 06/28/2022 History of squamous cell carcinoma 03/18/2021 Overview (03/18/2021): Added automatically from request for surgery [id number] Postoperative or surgical complication 1 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 Segmental mandibulectomy. Right angle, to left midbody. 2. Left neck exploration. 3. Left osteocutaneous forearm free flap, 6 cm bone, 5x5 cm skin. Microvascular anastomosis to left external carotid and 3.5 adoption worker to left external carotid vena comitante. 4. Prophylactic plating radius, 3.5 mm Synthes plate with use of intraoperative x-ray. 5. Left osteocutaneous scapula free flap Flow through flap with anastomosis to distal radial artery and 3.0 adoption worker to distal cephalic vein. 6. Mandibular plating with use of 2.0 VSP Shruti plate. 7. Open tracheostomy without gildardo flap. 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 - culture obtained by her HH nurse on 11/11/20 grew Klebsiella pneumoniae (S: amox/clav, cefepime, ceftriaxone, cipro, levo, pip/tazo, [...] 10/04/202011/05 Closed fracture of angle of jaw 08/19/2020 11/17/2020 Overview (08/19/2020): Added automatically from request for surgery [id number] Abnormal barium swallow 11/01/201511/05 Encounters Date Type Department Care Team Description 04/29/2024 11:30 AM CDT Office Visit [facility] Floor [address] [place] [address] Jesus Ngo MD Aspiration pneumonitis (HCC) (Primary Dx); Personal history of tobacco use 04/29/2024 10:30 AM CDT - 04/29/2024 11:59 PM CDT Hospital Encounter [facility] [address] [place] [address] Floor 1, [address] [place] [id number] Aspiration pneumonitis (HCC) Discharge Disposition: Discharge to home or self care from Last 3 Months Immunizations Immunization Administration Dates Next Due Influenza, Unspecified 11/12/2020 [...] mouth - (Added by TW Conv) Cancer (HCC) HTN (hypertension) History of radiation therapy Thyroid disease Hypothyroidism Family History Medical History Relation Name Comments Cancer Father Family history of malignant neoplasm - (Added by TW Conv) Relation Name Status Comments Father Social History Tobacco Use Types Packs/Day Years Used Date Smoking Tobacco: Every Day Cigarettes 1 3.3 Started: 01/05/2021 Passive Smoke Exposure: Current Smokeless Tobacco: Never Tobacco Cessation:Ready to Q [...] 06/29/2022 How often do you attend chur [employer] or anabaptist services? Patient declined 06/29/2022 Do you belong to any clubs o r organizations such as orthodox groups, unions, fraternal or athletic groups, or [...] on file Legal Sex Female 4:48 AM MICROFILM OPERATOR Gender Identity Not on file Sexual Orientation Not on file Obstetrics History Comments Post Menopause Last Filed Vital Signs Vital Sign Reading Time Taken Comments Blood Pressure 100/69 04/29/2024 11:04 AM CDT Pulse 82 04/29/2024 11:04 AM CDT Temperature 36.3 C (97.3 F) 04/29/2024 11:04 AM CDT Respiratory Rate 16 04/29/2024 11:04 AM CDT Oxygen Saturation 99% 04/29/2024 11:04 AM CDT Inhaled Oxygen Concentration - - Weight 41.1 kg (90 lb 9.6 oz) 04/29/2024 11:04 A M CDT Height 157.5 cm (5' 2.01 ) 04/29/2024 11:04 AM C DT Body Mass Index 16.57 04/29/2024 11:04 AM CDT Plan of Treatment Health Maintenance Due Date Last Done Comments Breast Cancer Screening-Mammogram 1955 Colon Cancer Screening-Colonoscopy 1955 Hepatitis C Screening 1955 Osteoporosis Screening-Bone Density Scan 1955 DTaP/Tdap/Td Vaccine (1 - Tdap) 1965 Hepatitis B Screening 1972 Pneumococcal vaccine 65+ (1 of 2 - PCV) 1973 Zoster Vaccine (1 of 2) 2004 Well Visit 65+ 06/21/2019 Depression Screening 06/29/2023 06/28/2022 Covid-19 Vaccine (5 - 2023-2 5 season) 2023 07/05/2021, 01/18/2021, 05/28/2020, Additional history exists Influenza Vaccine (#1) 2023 11/12/2020 Fall Risk Assessment 12/12/2024 12/13/2023 Medical Devices Implanted Type Area Net Application Architect Device Identifier Shelf Expiration Date Model / Serial / Lot Synthes Lcp Combi [id number] 14 Hole Limit Contact Taper End Plate Bone 223.641 - [id number] Implanted:Qty: 1 on 05/13/2021 by Suyapa Santillan MD at [facility] Plate Synthes I 223.641 / / [employer] Allian [id number] [place] Microvascular 2mm Ring Pin Protective Cover Jaw Assembly Latex Free - [id number] Implanted:Qty: 1 on 10/07/2020 by Leif Coe MD PhD at [facility] N/A: Mandible [employer] Allian 05/24/2025 [id number] / / [employer] Probe Doppler 17.4cm Standard Cuff Implantable 20mhz Latex Free Sterile Microvascular Anastomoses [place] [id number] - [id number] Implanted:Qty: 1 on 05/13/2021 by Suyapa Santillan MD at [facility] Neck [employer] [id number] 12/06/2023 [id number] / / [id number] Description:Doppler wire cut and secured with Tegaderm prior to discharge. To be removed at follow-up by Dr. Santillan. Shruti Craniomaxillofaci al Leibinger [place] 2 2.3mm 8mm Lock Cross Pin Maxillofacial [id number] - [id number] Implanted:Qty: 7 on 05/13/2021 by Suyapa Santillan MD at [facility] Mandible [place] Craniomaxillofacial [id number] / / Shruti Craniomaxillofaci al Leibinger [place] 2 2.3mm 10mm Lock Cross Pin Maxillofacial [id number] - [id number] Implanted:Qty: 1 on 05/13/2021 by Suyapa Santillan MD at [facility] Mandible Shruti Craniomaxillofacial [id number] / / [place] Craniomaxillofaci al Leibinger [place] 2 2mm 6mm Lock Cross Pin Maxillofacial Screw 50 - [id number] Implanted:Qty: 6 on 05/13/2021 by Suyapa Santillan MD at [facility] Mandible Shruti Craniomaxillofacial 50- / / [employer] [id number] [place] Microvascular 3mm Ring Pin Protective Cover Jaw Assembly Latex Free - [id number] Implanted:Qty: 1 on 05/13/2021 by Suyapa Santillan MD at [facility] Right: Neck [employer] Call [id number] 11/09/2025 [id number] / / [id number] [employer] Probe Doppler 17.4cm Standard Cuff Implantable 20mhz Latex Free Sterile Microvascular Anastomoses [place] [id number] - [id number] Implanted:Qty: 1 on 05/13/2021 by Suyapa Santillan MD at [facility] Right: Neck [employer] [id number] 11/05/2023 [id number] / / [id number] Description:Doppler wire cut and secured with Tegaderm prior to discharge. To be removed at follow-up by Dr. Santillan. Synthes 204.816 3.5mm 6mm 16mm 2.5mm Self Tap Small Hexagonal Socket Low Profile - [id number] Implanted:Qty: 3 on 05/13/2021 by Suyapa Santillan MD at [facility] Synthes I 204.816 / / Synthes 204.818 3.5mm 6mm 18mm 2.5mm Self Tap Small Hexagonal Socket Low Profile - [id number] Implanted:Qty: 1 on 05/13/2021 by Suyapa Santillan MD at [facility] Synthes I 204.818 / / Explanted Type Area Net Application Architect Device Identifier Shelf Expiration Date Model / Serial / Lot [place] Craniomaxillofaci al [id number] Leibinger La Russell 2 2.7mm 8mm Lock Emergency Cross Pin - [id number] Implanted:Qty: 1 on 10/07/2020 by Leif Coe MD PhD at [facility] Explanted:Qty: 1 on 05/13/2021 by Suyapa Santillan MD at [facility] Screw N/A: Mandible [place] Craniomaxillofacial [id number] / / [employer] [id number] Probe Doppler 17.4cm Standard Cuff Implantable 20mhz Latex Free Sterile Microvascular Anastomoses [place] - [id number] Implanted:Qty: 1 on 10/07/2020 by Leif Coe MD PhD at [facility] Explanted:Qty: 1 on 10/14/2020 by Lyndsay Mckeon PA N/A: Neck [employer] [id number] 07/06/19 24 [id number] / / [id number] [place] Craniomaxillofaci al 50 Leibinger [place] 2 2mm 6mm Lock Cross Pin Maxillofacial Screw - [id number] Implanted:Qty: 3 on 10/07/2020 by Leif Coe MD PhD at [facility] Explanted:Qty: 3 on 05/13/2021 by Suyapa Santillan MD at [facility] N/A: Mandible Shruti Craniomaxillofacial 50 / / Shruti Craniomaxillofaci al [id number] Leibinger [place] 2 2mm 8mm Lock Cross Pin Mandibular Screw - [id number] Implanted:Qty: 2 on 10/07/2020 by Leif Coe MD PhD at [facility] Explanted:Qty: 2 on 05/13/2021 by Suyapa Santillan MD at [facility] N/A: Mandible [place] Craniomaxillofacial [id number] / / [place] Craniomaxillofaci al [id number] Leibinger [place] 2 2mm 10mm Lock Cross Pin Maxillofacial Screw - [id number] Implanted:Qty: 6 on 10/07/2020 by Leif Coe MD PhD at [facility] Explanted:Qty: 6 on 05/13/2021 at [facility] N/A: Mandible [place] Craniomaxillofacial [id number] / / Shruti Craniomaxillofaci al [id number] Leibinger [place] 2 2mm 12mm Lock Cross Pin Maxillofacial Screw - [id number] Implanted:Qty: 4 on 10/07/2020 by Leif Coe MD PhD at [facility] Explanted:Qty: 4 on 05/13/2021 at [facility] N/A: Mandible Shruti Craniomaxillofacial [id number] / / Procedures Procedure Name Priority Date/Time Associated Diagnosis Comments PULMONARY FUNCTION TEST (PFT) Routine 04/29/2024 10:52 AM CDT Aspiration pneumonitis (HCC) from Last 3 Months Results * Pulmonary Function Test -PAULINO IM PUL PFT ACB1A; Oxygen Assessment Titration (04/29/2024 10:52 AM CDT) Anatomical Region Laterality Modality PFT Narrative 04/30/2024 11:20 AM CDT Table formatting from the original result was not included. [facility] Division of Pulmonary & Critical Care Medicine [address] [place] [address]; [facility]; [place] [address]; [phone] Pulmonary Function Laboratory Pulmonary Stress Test Simple/Oxygen Assessment Patient: Chaparrita Sinha Date: 04/29/2024 : 1955 Ht: 63 IN Wt: 91 LBS Time (min) Distance (ft)/ Feng O2 L/M SpO2 HR Rui* BP FEV1 % Pred Rest: RA 100 80 0 117/76 1.57 75% Walk/Bike: 1 RA 100 84 0 2 RA 100 88 0 3 RA 99 90 2 4 RA 99 88 3 5 RA 100 89 3 6 min 0 sec RA 100 88 3 Recovery: 1 RA 99 82 4 / 1.10 53% 3 RA 100 82 2 101/62 *Rui rate of perceived exertion (1-10 dyspnea scale) Selvin, CHEST 2003; 123:1408 Walk Test Summary: Six Minute Walk Distance: 835 ft Six-minute Walk Work [distance (m) x body wt (kg)]: 71306 kg.m (normal >60,000kg.m) Oxygen required to maintain SpO2 greater than 90% during six minutes of walkin L/M Comments: Interpretation: Breathing room air, SpO2 is normal at rest. During exercise sufficient to increase pulse, SpO2 is stable. On this basis, SpO2 is adequate at rest breathing room air and while walking breathing room air. This level of exercise is associated with a significant fall of FEV1. Luis Llanos MD By signing this report, the attending pulmonary physician certifies that he has personally reviewed and interpreted the graphic and numerical data associated with this pulmonary function study and has reviewed and /or edited a preliminary draft report and agrees with the written final report. Jesus Ngo MD PFT ORDERABLES Final Result from Last [address] [place] [address] [place] [id number] [facility] MEDICARE ADVANTAGE UHC MEDICARE ADVANTAGE [facility] [place] [id number] UHC MEDICARE ADVANTAGE [facility] MEDICARE ADVANTAGE Advance Directives For more information, please contact: [phone] * Full Code (Latest Code Status on [...] 11:07 AM 06/28/2022 2:37 PM Care Teams Brazer Assembler Relationship Specialty Start Date End Date Ayush Anthony DO [address] [place] [address] PCP - General 11/15/20
--- OUTSIDE RECORDS SUMMARY | 2024-05-07 08:34 | XMS_ITS | Encounter Summary ---
Author Organization [facility] Healthcare Address [address] [place] [address] Care Team Providers Care Twisting Press Operator Name Role Phone Ayush Anthonyrish Primary Care Provider Encounter Details Date Type Department Care Team (Late st Contact Info) Description 12/13/2023 Telephone [facility] Radiology [address] [place] [address] Susanne Dias RN Social History Tobacco Use Types Packs/Day Years Used Date Smoking Tobacco: Every Day Cigarettes 1 3.3 Started: 01/05/2021 Smokeless Tobacco: Never Comments:quit and [...] often do you attend chur ch or nondenominational services? 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 Never 12/13/2023 9:52 AM Madina Trevino Q2: How many drinks containing alcohol do you have on a typical day when you are drinking? Patient does not drink 12/13/2023 9:52 AM Madina Trevino Q3: How often do you have six or more drinks on one occasion? Never 12/13/2023 9:52 AM Madina Trevino documented as of this encounter Plan of Treatment Not on file documented as of this encounter Visit Diagnoses Not on filedocumented in this encounter Care Teams Twisting Press Operator Relationship Specialty Start Date End Date Ayush Anthony DO [address] [place] [address] PCP - General 11/15/20 documented as of this encounter
--- OUTSIDE RECORDS SUMMARY | 2024-05-07 08:34 | XMS_ITS | Encounter Summary ---
Author Organization [facility] Healthcare Address [address] [place] [address] Care Team Providers Care Marine Design Engineer Name Role Phone GermandannielleAyushrish Primary Care Provider Encounter Details Date Type Department Care Team (Late st Contact Info) Description 04/07/2022 Telephone [facility] Radiology [address] [place] [address] Eunice Denise RN Social History Tobacco Use Types Packs/Day Years Used Date Smoking Tobacco: Every Day Cigarettes 0.3 3.3 Started: 01/05/2021 Smokeless Tobacco: Never Comments:quit [...] on file Legal Sex Female 4:48 AM HOSPICE CONSULTANT Gender Identity Not on file Sexual Orientation Not on file documented as of this encounter Plan of Treatment Not on file documented as of this encounter Visit Diagnoses Not on filedocumented in this encounter Additional Health Concerns Infection Onset Date Last Indicated Resolved Time MDR gram neg/ESBL Comment:Criteria met. 05/13/2021 05/13/2021 06/29/2022 7:58 AM CDT documented as of this encounter Care Teams Marine Design Engineer Relationship Specialty Start Date End Date Ayush Anthony DO [address] [place] [address] PCP - General 11/15/20 documented as of this encounter
--- OUTSIDE RECORDS SUMMARY | 2024-05-07 08:34 | XMS_ITS | Referral Summary ---
Author Organization [facility] Address [address] [place] [address] Care Team Providers Care Raiser Helper Name Role Phone Ayush Anthony Primary Care Provider Encounters Date Type Department Care Team Description 04/29/2024 10:30 AM CDT - 04/29/2024 11:59 PM CDT Hospital Encounter [facility] PFT Lab [facility] Floor 1, [address] [place] [address] Aspiration pneumonitis (HCC) Discharge Disposition: Discharge to home or self care 04/29/2024 11:30 AM CDT Office Visit [facility] Pulmonary [address] [facility] Floor 5 [place] [address] Jesus Ngo MD Aspiration pneumonitis (HCC) (Primary Dx); Personal history of tobacco use from Last 3 Months Allergies Active Allergy [...] per tube 1 tablet (150 mcg total) teacher early childhood development before breakfast 30 tablet 3 Active atorvastatin [...] (03/18/2021): Added automatically from request for surgery [id number] Postoperative or surgical complication 1 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 Segmental mandibulectomy. Right angle, to left midbody. 2. Left neck exploration. 3. Left osteocutaneous forearm free flap, 6 cm bone, 5x5 cm skin. Microvascular anastomosis to left external carotid and 3.5 procurement intern to left external carotid vena comitante. 4. Prophylactic plating radius, 3.5 mm Synthes plate with use of intraoperative x-ray. 5. Left osteocutaneous scapula free flap Flow through flap with anastomosis to distal radial artery and 3.0 procurement intern to distal cephalic vein. 6. Mandibular plating with use of 2.0 VSP [place] plate. 7. Open tracheostomy without gildardo flap. 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 Patient declined 06/29/2022 Do you belong [...] on file Legal Sex Female 4:48 AM TELETYPESETTER MONITOR Gender Identity Not on file Sexual Orientation [...] 04/29/2024 11:04 AM CDT Plan of Treatment Not on file Medical Devices Implanted Type Area Archery Equipment Repairer Device Identifier Shelf Expiration Date Model / Serial / Lot Synthes Lcp Combi 186h98r4.4mm 14 Hole Limit Contact Taper End Plate Bone 223.641 - [id number] Implanted:Qty: 1 on 05/13/2021 by Suyapa Santillan MD at [facility] Plate Synthes I 223.641 / / Transaction Wirelesss Shiftboard Online Scheduling Allian [id number] [place] Microvascular 2mm Ring Pin Protective Cover Jaw Assembly Latex Free - [id number] Implanted:Qty: 1 on 10/07/2020 by Leif Coe MD PhD at [facility] N/A: Mandible Transaction Wirelesss [employer]board Online Scheduling Allian 05/24/2025 [id number] / / [employer] Probe Doppler 17.4cm Standard Cuff Implantable 20mhz Latex Free Sterile Microvascular Anastomoses [place] [id number] - [id number] Implanted:Qty: 1 on 05/13/2021 by Suyapa Santillan MD at [facility] Neck [employer] [id number] 12/06/2023 [id number] / / [id number] Description:Doppler wire cut and secured with Tegaderm prior to discharge. To be removed at follow-up by Dr. Santillan. [place] Craniomaxillofaci al Leibinger Bamberg 2 2.3mm 8mm Lock Cross Pin Maxillofacial [id number] - [id number] Implanted:Qty: 7 on 05/13/2021 by Suyapa Santillan MD at [facility] Mandible Shruti Craniomaxillofacial [id number] / / [place] Craniomaxillofaci al Leibinger [place]amberg 2 2.3mm 10mm Lock Cross Pin Maxillofacial [id number] - [id number] Implanted:Qty: 1 on 05/13/2021 by Suyapa Santillan MD at [facility] Mandible Shruti Craniomaxillofacial [id number] / / Shruti Craniomaxillofaci al Leibinger [place]amberg 2 2mm 6mm Lock Cross Pin Maxillofacial Screw 50- - [id number] Implanted:Qty: 6 on 05/13/2021 by Suyapa Santillan MD at [facility] Mandible Shruti Craniomaxillofacial [id number] / / LaserGen Allian [id number] [place] Microvascular 3mm Ring Pin Protective Cover Jaw Assembly Latex Free - [id number] Implanted:Qty: 1 on 05/13/2021 by Suyapa Santillan MD at [facility] Right: Neck LaserGen Allian [id number] 11/09/2025 [id number] / / [id number] [employer] Probe Doppler 17.4cm Standard Cuff Implantable 20mhz Latex Free Sterile Microvascular Anastomoses [place] [id number] - [id number] Implanted:Qty: 1 on 05/13/2021 by Suyapa Santillan MD at [facility] Right: Neck [employer] [id number] 11/05/2023 [id number] / / [id number] Description:Doppler wire cut and secured with Tegaderm prior to discharge. To be removed at follow-up by Dr. Santillan. Synthes 204.816 3.5mm 6mm 16mm 2.5mm Self Tap Small Hexagonal Socket Low Profile - [id number] Implanted:Qty: 3 on 05/13/2021 by Suyapa Santillan MD at [facility] Synthes I 204.816 / / Synthes 204.818 3.5mm 6mm 18mm 2.5mm Self Tap Small Hexagonal Socket Low Profile - [id number] Implanted:Qty: 1 on 05/13/2021 by Suyapa Santillan MD at [facility] Synthes I 204.818 / / Explanted Type Area Archery Equipment Repairer Device Identifier Shelf Expiration Date Model / Serial / Lot Shruti Craniomaxillofaci al [id number] Leibinger Bamberg 2 2.7mm 8mm Lock Emergency Cross Pin - [id number] Implanted:Qty: 1 on 10/07/2020 by Leif Coe MD PhD at [facility] Explanted:Qty: 1 on 05/13/2021 by Suyapa Santillan MD at [facility] Screw N/A: Mandible [place] Craniomaxillofacial [id number] / / [employer] [id number] Probe Doppler 17.4cm Standard Cuff Implantable 20mhz Latex Free Sterile Microvascular Anastomoses Bel[place] - [id number] Implanted:Qty: 1 on 10/07/2020 by Leif Coe MD PhD at [facility] Explanted:Qty: 1 on 10/14/2020 by Lyndsay Mckeon PA N/A: Neck [employer] [id number] 07/06/19 24 [id number] / / [id number] Shruti Craniomaxillofaci al 50 Leibinger Bamberg 2 2mm 6mm Lock Cross Pin Maxillofacial Screw - [id number] Implanted:Qty: 3 on 10/07/2020 by Leif Coe MD PhD at [facility] Explanted:Qty: 3 on 05/13/2021 by Suyapa Santillan MD at [facility] N/A: Mandible Shruti Craniomaxillofacial 50- / / Shruti Craniomaxillofaci al [id number] Leibinger Bamberg 2 2mm 8mm Lock Cross Pin Mandibular Screw - [id number] Implanted:Qty: 2 on 10/07/2020 by Leif Coe MD PhD at [facility] Explanted:Qty: 2 on 05/13/2021 by Suyapa Santillan MD at [facility] N/A: Mandible Shruti Craniomaxillofacial [id number] / / [place] Craniomaxillofaci al [id number] Leibinger Bamberg 2 2mm 10mm Lock Cross Pin Maxillofacial Screw - [id number] Implanted:Qty: 6 on 10/07/2020 by Leif Coe MD PhD at [facility] Explanted:Qty: 6 on 05/13/2021 at [facility] N/A: Mandible Shruti Craniomaxillofacial [id number] / / [place] Craniomaxillofaci al [id number] Leibinger Bamberg 2 2mm 12mm Lock Cross Pin Maxillofacial Screw - [id number] Implanted:Qty: 4 on 10/07/2020 by Leif Coe MD PhD at [facility] Explanted:Qty: 4 on 05/13/2021 at [facility] N/A: Mandible Shruti Craniomaxillofacial [id number] / / Procedures Procedure Name Priority Date/Time Associated Diagnosis Comments PULMONARY FUNCTION TEST (PFT) Routine 04/29/2024 10:52 AM CDT Aspiration pneumonitis (HCC) from Last 3 Months Results * Pulmonary Function Test -PAULINO IM PUL PFT ACB1A; Oxygen Assessment Titration (04/29/2024 10:52 AM CDT) Anatomical Region Laterality Modality PFT Narrative 04/30/2024 11:20 AM CDT Table formatting from the original result was not included. [facility] Division of Pulmonary & Critical Care Medicine [address] [place] [address]; [place] [address]; [place] [address]; [phone] Pulmonary Function Laboratory Pulmonary Stress Test Simple/Oxygen [...] Work [distance (m) x body wt (kg)]: 28443 kg.m (normal >60,000kg.m) Oxygen required to maintain [...] Final Result from Last 3 Months Insurance UHC MEDICARE ADVANTAGE UHC MEDICARE ADVANTAGE [place] [id number] UHC MEDICARE ADVANTAGE [facility] Address: [address] [address] [place] [address] [place] [address] [facility] MEDICARE ADVANTAGE [facility] Address: [address] [address] [place] [address] Advance Directives For more information, please contact: [phone] * Full Code (Latest Code Status on [...] 11:07 AM 06/28/2022 2:37 PM Care Teams Raiser Helper Relationship Specialty Start Date End Date Ayush Anthony DO [address] [place] [address] [facility] - General 11/15/20
--- OUTSIDE RECORDS SUMMARY | 2024-05-07 08:34 | XMS_ITS | Clinical Summary ---
Author Organization [facility] Address [address] [place] [address] Care Team Providers Care Jewel Hole Driller Name Role Phone GermanAyush spicer Primary Care Provider [phone] Social History Tobacco Use Types Packs/Day Years Used Date Smoking Tobacco: Never Assessed Comments Unknown Sex and Gender Information Value Date Recorded Sex Assigned at Not on file Legal Sex Female 11:21 AM CDT Gender Identity Not on file Sexual Orientation Not on file Plan of Treatment Health Maintenance Due Date Last Done Comments Colorectal Cancer Screening Colonoscopy (10 Years) 1954 Hepatitis C 1972 DTaP, Tdap and Td Vaccines ( 1 - Tdap) 1973 Mammogram Screening 1994 Zoster Vaccines (1 of 2) 2004 Annual Medicare Wellness Visit 06/21/2019 Dexa Scan (General) 06/21/2019 Pneumococcal Vaccine: 65+ Years (1 of 1 - PCV) 06/21/2019 COVID-19 Vaccine (3 - 2023-2 5 season) 2023 05/28/2020, 04/30/2020 RSV Immunization or 60+ Years (1 - 1-dose 75+ series) 2029 Meningococcal B Vaccine Aged Out No l onger eligible based on patient's age to complete this topic Meningococcal Vaccine Aged Out No linda malcolm eligible based on patient's age to complete this topic RSV Immunizations Under 20 Months Aged Out No longer eligible b ased on patient's age to complete this topic [place] [address] [facility] Care Teams Jewel Hole Driller Relationship Specialty Start Date End Date Ayush Anthony DO [address] [place] [address] PCP - General FAMILY PRACTICE 12/15/20
[2024-05-07 09:30] LABS: Alanine Aminotransferase 22 U/L (14-59); Alkaline Phosphatase 80 U/L (46-116); Anion Gap 4 mmol/L (4-12); Aspartate Amino Transferase 25 U/L (15-37); Bilirubin,Total 0.3 mg/dL (0.00-1.00); Blood Urea Nitrogen 10 mg/dL (7-18); Calcium 9.1 mg/dL (8.5-10.1); Carbon Dioxide 33 mmol/L (21-32); Chloride 94 mmol/L (98-108); Estimated Glomerular Filt Rate > 60; Glucose 87 mg/dL (70-99); Osmolality Calculated 270 mOsm/kg (285-295); Potassium 4.5 mmol/L (3.5-5.1); Sodium 131 mmol/L (136-145); Thyroid Stimulating Hormone 2.97 uIU/mL (0.36-3.74); Total Protein 7.7 g/dL (6.4-8.2)
== END 2024-05-07 08:22 | disposition home or self-care (01) ==
LOC: CHSLAB 08:22
PROVIDERS: PCP Nurse Practitioner Family; Visit Provider Nurse Practitioner Family
DX: E87.8 Other disorders of electrolyte and fluid balance, not elsewhere classified (principal); E03.9 Hypothyroidism, unspecified
CPT/HCPCS: 36415; 80053; 84443

== ENCOUNTER 2024-06-11 09:05 | Outpatient (CLI) | payer MEDICARE, SELFPAY ==
--- OUTSIDE RECORDS SUMMARY | 2024-06-11 09:28 | XMS_ITS | Encounter Summary ---
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 05/13/2021 05/13/2021 06/29/2022 7:58 AM CDT documented as of this encounter Care Teams Site Acquisition Manager Relationship Specialty Start Date End Date Ayush Anthony DO [address] [place] [address] PCP - General 11/15/20 documented as of this encounter
--- OUTSIDE RECORDS SUMMARY | 2024-06-11 09:28 | XMS_ITS | Encounter Summary ---
Author Organization [facility] Healthcare Address [address] [place] [address] Care Team Providers Care Seed Cleaning Manager Name Role Phone Ayush Anthonyrish Primary Care Provider Encounter Details Date Type Department Care Team (Late st Contact Info) Description 12/13/2023 Telephone [facility] Radiology [address] [place] [address] Susanne Dias RN Social History Tobacco Use Types Packs/Day Years Used Date Smoking Tobacco: Every Day Cigarettes 1 3.4 Started: 01/05/2021 Smokeless Tobacco: Never Comments:quit [...] often do you attend chur ch or hinduism services? 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
--- OUTSIDE RECORDS SUMMARY | 2024-06-11 09:28 | XMS_ITS | Referral Summary ---
Author Organization [facility] Address [address] [place] [address] Care Team Providers Care Sales Department Manager Name Role Phone Ayush Anthony Primary Care Provider Encounters Date Type Department Care Team Description 05/28/2024 8:40 AM CDT Office Visit [facility] Department of Otolaryngology Head-Neck Division [address] [place] [address] 5 [place] [phone] Suyapa Santillan MD Osteoradionecrosis of jaw (Primary Dx); Dysphagia, unspecified type; Osteoradionecrosis (HCC); Pathological fracture of jaw, initial encounter; History of squamous cell carcinoma 04/29/2024 10:30 AM CDT - 04/29/2024 11:59 PM CDT Hospital Encounter [facility] PFT Lab [address] [place] [address] Floor 1, [address] [place] [id number] Aspiration pneumonitis (HCC) Discharge Disposition: Discharge to home or self care 04/29/2024 11:30 AM CDT Office Visit [facility] Pulmonary [address] [place] [address] Floor 5 [place] [phone] Jesus Ngo MD Aspiration pneumonitis (HCC) (Primary [...] Apply 1 each topically as needed (Dressing changes/securing g-tube) 2 each 3 2 Active Additional Information Patient not taking.Reported on 05/28/2024 acetaminophen (TYLENOL) solution 160 mg/5 mL Administer per tube 31 mL (1,000 mg total) every 6 (six) hours as needed for pain 1500 mL 3 2 Active guaiFENesin (ROBITUSSIN) syrup 100 mg/5 mL Take 20 mL (400 mg total) by mouth 3 (three) times a day as needed for cough 473 mL 3 2 Active Additional Information Patient not taking.Reported on 05/28/2024 traZODone (DESYREL) 50 mg tablet Take 1 tablet (50 mg total) by mouth nightly Active benzonatate (TESSALON) 200 mg capsule Take 1 capsule (200 mg total) by mouth 2 (two) times a day as needed for cough Active levothyroxine (SYNTHROID) 150 mcg tabletIndicatio ns:hypothyroidi sm Administer per tube 1 tablet (150 mcg total) early childhood coordinator before breakfast 30 tablet 3 Active atorvastatin [...] (03/18/2021): Added automatically from request for surgery [id number] Postoperative or surgical complication Osteoradionecrosis 12/20/2020 Assessment & Plan (12/20/2020 12:18 PM HEALTH THERAPIST): - s/p mandibulectomy c/b wound infection and fistula formation - treatment noted in above plan Severe malnutrition 11/26/2020 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 Segmental mandibulectomy. Right angle, to left midbody. 2. Left neck exploration. 3. Left osteocutaneous forearm free flap, 6 cm bone, 5x5 cm skin. Microvascular anastomosis to left external carotid and 3.5 film vault supervisor to left external carotid vena comitante. 4. Prophylactic plating radius, 3.5 mm Synthes plate with use of intraoperative x-ray. 5. Left osteocutaneous scapula free flap Flow through flap with anastomosis to distal radial artery and 3.0 film vault supervisor to distal cephalic vein. 6. Mandibular plating with use of 2.0 VSP [place] plate. 7. Open tracheostomy without gildardo flap. 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 Difficulty in swallowing 03/06/2011 Resolved Problems Problem Noted Date Diagnosed Date Resolved Date Wound infection 12/20/2020 01/04/2021 Assessment & Plan (12/20/2020 12:48 PM HEALTH THERAPIST): - draining fistulous tract between her mouth [...] (08/19/2020): Added automatically from request for surgery [id number] Abnormal barium swallow 11/01/201511/05 Immunizations Immunization Administration Dates Next Due Influenza, Unspecified 11/12/2020 Moderna SARS-CoV-2 Monovalent Vaccination (12+ Y RS) 05/28/2020,04/30/2020 Pfizer SARS-CoV-2 Monovalent Vaccination (12+ Yrs) ARANGO-READY TO USE 07/05/2021 Social History Tobacco Use Types Packs/Day Years Used Date Smoking Tobacco: Every Day Cigarettes 1 3.4 Started: 01/05/2021 Passive Smoke Exposure: Current Smokeless [...] 06/29/2022 How often do you attend chur Avaak or scientology services? Patient declined 06/29/2022 Do you belong to any clubs o r organizations such as restorationist groups, unions, fraternal or athletic groups, or [...] on file Legal Sex Female 4:48 AM HEALTH THERAPIST Gender Identity Not on file Sexual Orientation Not on file Last Filed Vital Signs Vital Sign Reading Time Taken Comments Blood Pressure 100/69 04/29/2024 11:04 AM CDT Pulse 82 04/29/2024 11:04 AM CDT Temperature 36.3 C (97.3 F) 04/29/2024 11:04 AM CDT Respiratory Rate 16 04/29/2024 11:04 AM CDT Oxygen Saturation 99% 04/29/2024 11:04 AM CDT Inhaled Oxygen Concentration - - Weight 41.7 kg (92 lb) 05/28/2024 8:28 AM CDT Height 157.5 cm (5' 2.01 ) 04/29/2024 11:04 AM C DT Body Mass Index 16.82 04/29/2024 11:04 AM CDT Plan of Treatment Not on file Medical Devices Implanted Type Area Conveyor Feeder Device Identifier Shelf Expiration Date Model / Serial / Lot Synthes p Combi [id number] 14 Hole Limit Contact Taper End Plate Bone 223.641 - [id number] Implanted:Qty: 1 on 05/13/2021 by Suyapa Santillan MD at [facility] Plate Synthes I 223.641 / / Periscapeian [id number] [place] Microvascular 2mm Ring Pin Protective Cover Jaw Assembly Latex Free - [id number] Implanted:Qty: 1 on 10/07/2020 by Leif Coe MD PhD at [facility] N/A: Mandible [employer] 05/24/2025 [id number] / / [employer] Probe Doppler 17.4cm Standard Cuff Implantable 20mhz Latex Free Sterile Microvascular Anastomoses [place] [id number] - [id number] Implanted:Qty: 1 on 05/13/2021 by Suyapa Santillan MD at [facility] Neck [employer] [id number] 12/06/2023 [id number] / / [id number] Description:Doppler wire cut and secured with Tegaderm prior to discharge. To be removed at follow-up by Dr. Santillan. [place] Craniomaxillofaci al Leibinger Healy 2 2.3mm 8mm Lock Cross Pin Maxillofacial [id number] - [id number] Implanted:Qty: 7 on 05/13/2021 by Suyapa Santillan MD at [facility] Mandible Shruti Craniomaxillofacial [id number] / / Shruti Craniomaxillofaci al Leibinger Healy 2 2.3mm 10mm Lock Cross Pin Maxillofacial [id number] - [id number] Implanted:Qty: 1 on 05/13/2021 by Suyapa Santillan MD at [facility] Mandible Shruti Craniomaxillofacial [id number] / / [place] Craniomaxillofaci al Leibinger Healy 2 2mm 6mm Lock Cross Pin Maxillofacial Screw 50 - [id number] Implanted:Qty: 6 on 05/13/2021 by Suyapa Santillan MD at [facility] Mandible [place] Craniomaxillofacial / / Periscapealisson [id number] [place] Microvascular 3mm Ring Pin Protective Cover Jaw Assembly Latex Free - [id number] Implanted:Qty: 1 on 05/13/2021 by Suyapa Santillan MD at [facility] Right: Neck Parrable Curtis [id number] 11/09/2025 [id number] / / [id number] [employer] Probe Doppler 17.4cm Standard Cuff Implantable 20mhz Latex Free Sterile Microvascular Anastomoses Belkis [id number] - [id number] Implanted:Qty: 1 on 05/13/2021 by Suyapa Santillan MD at [facility] Right: Neck [employer] [id number] 11/05/2023 [id number] / / [id number] Description:Doppler wire cut and secured with Tegaderm prior to discharge. To be removed at follow-up by Dr. Santillan. Synthes 204.816 3.5mm 6mm 16mm 2.5mm Self Tap Small Hexagonal Socket Low Profile - [id number] Implanted:Qty: 3 on 05/13/2021 by Suyapa Santillan MD at [facility] Synthes I 204.816 / / Synthes 204.818 3.5mm 6mm 18mm 2.5mm Self Tap Small Hexagonal Socket Low Profile - [id number] Implanted:Qty: 1 on 05/13/2021 by Suyapa Santillan MD at [facility] Synthes I 204.818 / / Explanted Type Area Conveyor Feeder Device Identifier Shelf Expiration Date Model / Serial / Lot Shruti Craniomaxillofaci al [id number] Leibinger Healy 2 2.7mm 8mm Lock Emergency Cross Pin - [id number] Implanted:Qty: 1 on 10/07/2020 by Leif Coe MD PhD at [facility] Explanted:Qty: 1 on 05/13/2021 by Suyapa Santillan MD at [facility] Screw N/A: Mandible Shruti Craniomaxillofacial [id number] / / [employer] [id number] Probe Doppler 17.4cm Standard Cuff Implantable 20mhz Latex Free Sterile Microvascular Anastomoses Belkis - [id number] Implanted:Qty: 1 on 10/07/2020 by Leif Coe MD PhD at [facility] Explanted:Qty: 1 on 10/14/2020 by Lyndsay Mckeon PA N/A: Neck [employer] [id number] 07/06/19 24 [id number] / / [id number] Shruti Craniomaxillofaci al [id number] Leibinger Healy 2 2mm 6mm Lock Cross Pin Maxillofacial Screw - [id number] Implanted:Qty: 3 on 10/07/2020 by Leif Coe MD PhD at [facility] Explanted:Qty: 3 on 05/13/2021 by Suyapa Santillan MD at [facility] N/A: Mandible Shruti Craniomaxillofacial 50-96069 / / Shruti Craniomaxillofaci al [id number] Leibinger Healy 2 2mm 8mm Lock Cross Pin Mandibular Screw - [id number] Implanted:Qty: 2 on 10/07/2020 by Leif Coe MD PhD at [facility] Explanted:Qty: 2 on 05/13/2021 by Suyapa Santillan MD at [facility] N/A: Mandible [place] Craniomaxillofacial [id number] / / Shruti Craniomaxillofaci al [id number] Leibinger Healy 2 2mm 10mm Lock Cross Pin Maxillofacial Screw - [id number] Implanted:Qty: 6 on 10/07/2020 by Leif Coe MD PhD at [facility] Explanted:Qty: 6 on 05/13/2021 at [facility] N/A: Mandible Shruti Craniomaxillofacial [id number] / / [place] Craniomaxillofaci al [id number] Leibinger Healy 2 2mm 12mm Lock Cross Pin Maxillofacial Screw - [id number] Implanted:Qty: 4 on 10/07/2020 by Leif Coe MD PhD at [facility] Explanted:Qty: 4 on 05/13/2021 at [facility] N/A: Mandible Shruti Craniomaxillofacial [id number] / / Procedures Procedure Name Priority Date/Time Associated Diagnosis Comments PULMONARY FUNCTION TEST (PFT) Routine 04/29/2024 10:52 AM CDT Aspiration pneumonitis (HCC) from Last 3 Months Results * Pulmonary Function Test -PAULINO IM PUL PFT ACB1A; Oxygen Assessment Titration (04/29/2024 10:52 AM CDT) Anatomical Region Laterality Modality PFT Narrative 04/30/2024 11:20 AM CDT Table formatting from the original result was not included. [facility] Division of Pulmonary & Critical Care Medicine [address] [place] [address]; [facility]; [place] [address]; [phone] Pulmonary Function Laboratory Pulmonary Stress Test Simple/Oxygen [...] Work [distance (m) x body wt (kg)]: 54075 kg.m (normal >60,000kg.m) Oxygen required to maintain [...] Last 3 Months Insurance UHC MEDICARE ADVANTAGE [facility] MEDICARE Address: [facility] [address] [place] [address] UHC MEDICARE ADVANTAGE [facility] MEDIC[facility] Address: [facility] [id number] [facility] MEDICARE ADVANTAGE UHC MEDICARE ADVANTAGE [facility] MEDICARE Address: [address] [address] [place] [address] Advance Directives For more information, please contact: [phone] * Full Code (Latest Code Status on [...] 11:07 AM 06/28/2022 2:37 PM Care Teams Sales Department Manager Relationship Specialty Start Date End Date Ayush Anthony DO [facility] [place] [address] PCP - General 11/15/20
--- OUTSIDE RECORDS SUMMARY | 2024-06-11 09:28 | XMS_ITS | Clinical Summary ---
Author Organization [facility] Address [address] [place] [address] Care Team Providers Care Forest Officer Name Role Phone Renuka Anthonysh Bernard Primary Care Provider Allergies Active Allergy Reactions [...] per tube 1 tablet (150 mcg total) jde developer before breakfast 30 tablet 3 Active atorvastatin [...] (03/18/2021): Added automatically from request for surgery [id number] Postoperative or surgical complication 1 Osteoradionecrosis 12/20/2020 Assessment & Plan (12/20/2020 12:18 PM DIAMOND DRILLER): - s/p mandibulectomy c/b wound infection and fistula formation - treatment noted in above plan Severe malnutrition 11/26/2020 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 Segmental mandibulectomy. Right angle, to left midbody. 2. Left neck exploration. 3. Left osteocutaneous forearm free flap, 6 cm bone, 5x5 cm skin. Microvascular anastomosis to left external carotid and 3.5 general office worker to left external carotid vena comitante. 4. Prophylactic plating radius, 3.5 mm Synthes plate with use of intraoperative x-ray. 5. Left osteocutaneous scapula free flap Flow through flap with anastomosis to distal radial artery and 3.0 general office worker to distal cephalic vein. 6. Mandibular plating with use of 2.0 VSP Shruti plate. 7. Open tracheostomy without gildardo flap. 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 Difficulty in swallowing 03/06/2011 Resolved Problems Problem Noted Date Diagnosed Date Resolved Date Wound infection 12/20/2020 01/04/2021 Assessment & Plan (12/20/2020 12:48 PM DIAMOND DRILLER): - draining fistulous tract between her mouth [...] (08/19/2020): Added automatically from request for surgery [id number] Abnormal barium swallow 11/01/201511/05 Encounters Date Type Department Care Team Description 05/28/2024 8:40 AM CDT Office Visit [facility] Department of Otolaryngology Head-Neck Division [address] [place] [phone] Suyapa Santillan MD Osteoradionecrosis of jaw (Primary Dx); Dysphagia, unspecified type; Osteoradionecrosis (HCC); Pathological fracture of jaw, initial encounter; History of squamous cell carcinoma 04/29/2024 11:30 AM CDT Office Visit [facility] Pulmonary [address] [facility] Floor 5 [place] [phone] Jesus Ngo MD Aspiration pneumonitis (HCC) (Primary Dx); Personal history of tobacco use 04/29/2024 10:30 AM CDT - 04/29/2024 11:59 PM CDT Hospital Encounter [facility] PFT Lab [address] [facility] Floor 1, [address] [place] [address] Aspiration pneumonitis (HCC) Discharge Disposition: [...] often do you attend chur ch or protestant services? 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 DRILLER Gender Identity Not on file Sexual Orientation [...] 01/18/2021, 05/28/2020, Additional history exists Influenza Vaccine (Season Ended) 2024 11/13/19 21 Fall Risk Assessment 12/12/2024 12/13/2023 Medical Devices Implanted Type Area Customs Investigator Device Identifier Shelf Expiration Date Model / Serial / Lot Synthes Lcp Combi [id number] 14 Hole Limit Contact Taper End Plate Bone 223.641 - [id number] Implanted:Qty: 1 on 05/13/2021 by Suyapa Santillan MD at [facility] Plate Synthes I 223.641 / / Synov[employer] Curtis [id number] [place] Microvascular 2mm Ring Pin Protective Cover Jaw Assembly Latex Free - [id number] Implanted:Qty: 1 on 10/07/2020 by Leif Coe MD PhD at [facility] N/A: Mandible Flavorvanil Allian 05/24/2025 [id number] / / [id number] Probe Doppler 17.4cm Standard Cuff Implantable 20mhz Latex Free Sterile Microvascular Anastomoses [place] [id number] - [id number] Implanted:Qty: 1 on 05/13/2021 by Suyapa Santillan MD at [facility] Neck [employer] [id number] 12/06/2023 [id number] / / [id number] Description:Doppler wire cut and secured with Tegaderm prior to discharge. To be removed at follow-up by Dr. Santillan. [place] Craniomaxillofaci al Leibinger [place] 2 2.3mm 8mm Lock Cross Pin Maxillofacial 1434277 - [id number] Implanted:Qty: 7 on 05/13/2021 by Suyapa Santillna MD at [facility] Mandible [place] Craniomaxillofacial [id number] / / Shruti Craniomaxillofaci al Leibinger [place] 2 2.3mm 10mm Lock Cross Pin Maxillofacial 5253709 - [id number] Implanted:Qty: 1 on 05/13/2021 by Suyapa Santillan MD at [facility] Mandible [place] Craniomaxillofacial [id number] / / [place] Craniomaxillofaci al Leibinger [place] 2 2mm 6mm Lock Cross Pin Maxillofacial Screw 50 - [id number] Implanted:Qty: 6 on 05/13/2021 by Suyapa Santillan MD at [facility] Mandible [place] Craniomaxillofacial [id number] / / [id number] Pipelinefx Allian [id number] [place] Microvascular 3mm Ring Pin Protective Cover Jaw Assembly Latex Free - [id number] Implanted:Qty: 1 on 05/13/2021 by Suyapa Santillan MD at [facility] Right: Neck Flavorvanil Allian [id number] 11/09/2025 [id number] / / [id number] [employer] Probe Doppler 17.4cm Standard Cuff Implantable 20mhz Latex Free Sterile Microvascular Anastomoses Belkis V06256 - [id number] Implanted:Qty: 1 on 05/13/2021 by Suyapa Santillan MD at [facility] Right: Neck [employer] [id number] 11/05/2023 [id number] / / [id number] Description:Doppler wire cut and secured with Tegaderm prior to discharge. To be removed at follow-up by Dr. Santillan. Synthes 204.816 3.5mm 6mm 16mm 2.5mm Self Tap Small Hexagonal Socket Low Profile - [id number] Implanted:Qty: 3 on 05/13/2021 by Suyapa Santillan MD at [facility] Synthes I 204.816 / / Synthes 204.818 3.5mm 6mm 18mm 2.5mm Self Tap Small Hexagonal Socket Low Profile - [id number] Implanted:Qty: 1 on 05/13/2021 by Suyapa Santillan MD at [facility] Synthes I 204.818 / / Explanted Type Area Customs Investigator Device Identifier Shelf Expiration Date Model / Serial / Lot [place] Craniomaxillofaci al [id number] Leibinger [place] 2 2.7mm 8mm Lock Emergency Cross Pin - [id number] Implanted:Qty: 1 on 10/07/2020 by Leif Coe MD PhD at [facility] Explanted:Qty: 1 on 05/13/2021 by Suyapa Santillan MD at [facility] Screw N/A: Mandible Shruti Craniomaxillofacial [id number] / / [employer] [id number] Probe Doppler 17.4cm Standard Cuff Implantable 20mhz Latex Free Sterile Microvascular Anastomoses Belkis - [id number] Implanted:Qty: 1 on 10/07/2020 by Leif Coe MD PhD at [facility] Explanted:Qty: 1 on 10/14/2020 by Lyndsay Mckeon PA N/A: Neck [employer] Inc [id number] 07/06/19 [id number] / / [id number] Shruti Craniomaxillofaci al 50 Leibinger [place] 2 2mm 6mm Lock Cross Pin Maxillofacial Screw - [id number] Implanted:Qty: 3 on 10/07/2020 by Leif Coe MD PhD at [facility] Explanted:Qty: 3 on 05/13/2021 by Suyapa Santillan MD at [facility] N/A: Mandible [place] Craniomaxillofacial [id number] / / [place] Craniomaxillofaci al [id number] Leibinger [place] 2 2mm 8mm Lock Cross Pin Mandibular Screw - [id number] Implanted:Qty: 2 on 10/07/2020 by Leif Coe MD PhD at [facility] Explanted:Qty: 2 on 05/13/2021 by Suyapa Santillan MD at [facility] N/A: Mandible [place] Craniomaxillofacial [id number] / / Shruti Craniomaxillofaci al [id number] Leibinger [place] 2 2mm 10mm Lock Cross Pin Maxillofacial Screw - [id number] Implanted:Qty: 6 on 10/07/2020 by Leif Coe MD PhD at [facility] Explanted:Qty: 6 on 05/13/2021 at [facility] N/A: Mandible Shruti Craniomaxillofacial [id number] / / Shruti Craniomaxillofaci al [id number] Leibinger [place] 2 2mm 12mm Lock Cross Pin Maxillofacial Screw - [id number] Implanted:Qty: 4 on 10/07/2020 by Leif Coe MD PhD at [facility] Explanted:Qty: 4 on 05/13/2021 at [facility] N/A: Mandible Shruti Craniomaxillofacial [id number] / / Procedures Procedure Name Priority Date/Time Associated Diagnosis Comments PULMONARY FUNCTION TEST (PFT) Routine 04/29/2024 10:52 AM CDT Aspiration pneumonitis (HCC) from Last 3 Months Results * Pulmonary Function Test -PAULINO IM PUL PFT ACB1A; Oxygen Assessment Titration (04/29/2024 10:52 AM CDT) Anatomical Region Laterality Modality PFT Narrative 04/30/2024 11:20 AM CDT Table formatting from the original result was not included. [facility] Division of Pulmonary & Critical Care Medicine [address] [place] [address]; [place] [address]; [place] [address]; [phone] Pulmonary Function Laboratory Pulmonary Stress Test Simple/Oxygen [...] Work [distance (m) x body wt (kg)]: 09373 kg.m (normal >60,000kg.m) Oxygen required to maintain [...] and agrees with the written final report. us Jesus Ngo MD PFT ORDERABLES Final Result from Last 3 Months Insurance [facility] MEDICARE ADVANTAGE [facility] MEDICARE ADVANTAGE [facility]INE [facility] UHC MEDICARE ADVANTAGE UHC MEDICARE ADVANTAGE Advance Directives For more information, please contact: [phone] * Full Code (Latest Code Status on [...] 11:07 AM 06/28/2022 2:37 PM Care Teams Forest Officer Relationship Specialty Start Date End Date Ayush Anthony DO [address] [place] [address] PCP - General 11/15/20
--- OUTSIDE RECORDS SUMMARY | 2024-06-11 09:28 | XMS_ITS | Clinical Summary ---
Author Organization [facility] Address [address] [place] [address] Care Team Providers Care Hvac Commercial Salesperson Name Role Phone GermanAyush spicer Primary Care Provider [phone] Social History Tobacco Use Types Packs/Day Years [...] 1 - Tdap) 1973 Mammogram Screening 1994 Pneumococcal Vaccine: 50+ Years (1 of 1 - PCV) 2004 Zoster Vaccines (1 of 2) 2004 Annual Medicare Wellness Visit 06/21/2019 Dexa Scan (General) 06/21/2019 COVID-19 Vaccine (3 - 2023-2 5 [...] age to complete this topic [place] [address] [facility] Care Teams Hvac Commercial Salesperson Relationship Specialty Start Date End Date Ayush Anthony DO [address] [place] [address] PCP - General FAMILY PRACTICE 12/15/20
[2024-06-11 14:18] LABS: Alanine Aminotransferase 16 U/L (6-35); Albumin Level 4.4 g/dL (3.5-5.1); Alkaline Phosphatase 73 U/L (38-126); Anion Gap 5 mmol/L (4-12); Aspartate Amino Transferase 32 U/L (14-36); Bilirubin,Total 0.3 mg/dL (0.2-1.3); Blood Urea Nitrogen 14 mg/dL (7-17); Calcium 9.2 mg/dL (8.4-10.2); Carbon Dioxide 32 mmol/L (22-30); Chloride 98 mmol/L (98-107); Estimated Glomerular Filt Rate > 60; Glucose 84 mg/dL (65-110); Osmolality Calculated 279 mOsm/kg (285-295); Potassium 4.4 mmol/L (3.4-5.0); Sodium 135 mmol/L (137-145); Total Protein 7.3 g/dL (6.3-8.2)
== END 2024-06-11 09:06 | disposition home or self-care (01) ==
LOC: CHSLAB 09:07
PROVIDERS: PCP Nurse Practitioner Family; Visit Provider Nurse Practitioner Family
DX: E87.8 Other disorders of electrolyte and fluid balance, not elsewhere classified (principal); Z93.1 Gastrostomy status
CPT/HCPCS: 36415; 80053

== ENCOUNTER 2024-09-10 08:26 | Outpatient (CLI) | payer MEDICARE, SELFPAY ==
--- OUTSIDE RECORDS SUMMARY | 2024-09-10 08:33 | XMS_ITS | Clinical Summary ---
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 Segmental mandibulectomy. Right angle, to left midbody. 2. Left neck exploration. 3. Left osteocutaneous forearm free flap, 6 cm bone, 5x5 cm skin. Microvascular anastomosis to left external carotid and 3.5 insecticide maker to left external carotid vena comitante. 4. Prophylactic plating radius, 3.5 mm Synthes plate with use of intraoperative x-ray. 5. Left osteocutaneous scapula free flap Flow through flap with anastomosis to distal radial artery and 3.0 insecticide maker to distal cephalic vein. 6. Mandibular plating with use of 2.0 VSP [place] plate. 7. Open tracheostomy without gildardo flap. 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 Difficulty in swallowing 03/06/2011 Resolved Problems Problem Noted Date Diagnosed Date Resolved Date Wound infection 12/20/2020 01/04/2021 Assessment & Plan (12/20/2020 12:48 PM STRATEGIC INSIGHTS LEAD): - draining fistulous tract between her mouth [...] (08/19/2020): Added automatically from request for surgery [id number] Abnormal barium swallow 11/01/201511/05 Encounters Date Type Department Care Team Description 06/25/2024 11:00 AM CDT Therapy [facility] Speech Therapy [address] [place] [address] Dysphagia, pharyngeal phase (Primary Dx); Dysarthria; Dysphagia, oral phase; Dysphagia, oropharyngeal phase 06/25/2024 10:25 AM CDT - 06/25/2024 11:59 PM CDT Hospital Encounter [facility] ([facility]) [address] [place], [place] [id number] Dysphagia, unspecified type Discharge Disposition: Discharge to home or self [...] Date Smoking Tobacco: Every Day Cigarettes 1 3.7 Started: 01/05/2021 Passive Smoke Exposure: Current Smokeless [...] week 06/29/2022 How often do you attend [facility] or muslim services? Patient declined 06/29/2022 Do you belong to any clubs o r organizations such as anabaptism groups, unions, fraternal or athletic groups, or [...] on file Legal Sex Female 4:48 AM STRATEGIC INSIGHTS LEAD Gender Identity Not on file Sexual Orientation [...] 8:28 AM CDT Height 157.5 cm (5' 2.01) 04/29/2024 11:04 AM C DT Body Mass [...] 05/28/2020, Additional history exists Influenza Vaccine (#1) 2024 11/12/2020 Fall Risk Assessment 12/12/2024 12/13/2023 Medical Devices Implanted Type Area Cut Off Saw Operator Pipe Blanks Device Identifier Shelf Expiration Date Model / Serial / Lot Synthes Lcp Combi [id number] 14 Hole Limit Contact Taper End Plate Bone 223.641 - [id number] Implanted:Qty: 1 on 05/13/2021 by Suypaa Santillan MD at [facility] Plate Synthes I 223.641 / / ShinyByte [id number] [place] Microvascular 2mm Ring Pin Protective Cover Jaw Assembly Latex Free - [id number] Implanted:Qty: 1 on 10/07/2020 by Leif Coe MD PhD at [facility] N/A: Mandible [employer] Allian 05/24/2025 [id number] / / [employer] Probe Doppler 17.4cm Standard Cuff Implantable 20mhz Latex Free Sterile Microvascular Anastomoses [place] [id number] - [id number] Implanted:Qty: 1 on 05/13/2021 by Suyapa Santillan MD at [facility] Neck Standardized Safety [employer] Inc [id number] 12/06/2023 [id number] / / [id number] Description:Doppler wire cut and secured with Tegaderm prior to discharge. To be removed at follow-up by Dr. Santillan. [place] Craniomaxillofaci al Leibinger [place] 2 2.3mm 8mm Lock Cross Pin Maxillofacial [id number] - [id number] Implanted:Qty: 7 on 05/13/2021 by Suyapa Santillan MD at [facility] Mandible Shruti Craniomaxillofacial [id number] / / Shruti Craniomaxillofaci al Leibinger [place] 2 2.3mm 10mm Lock Cross Pin Maxillofacial [id number] - [id number] Implanted:Qty: 1 on 05/13/2021 by Suyapa Santillan MD at [facility] Mandible [place] Craniomaxillofacial [id number] / / Shruti Craniomaxillofaci al Leibinger [place] 2 2mm 6mm Lock Cross Pin Maxillofacial Screw 50- - [id number] Implanted:Qty: 6 on 05/13/2021 by Suyapa Santillan MD at [facility] Mandible Shruti Craniomaxillofacial [id number] / / [employer]ascaux [employer].ian [id number] [place] Microvascular 3mm Ring Pin Protective Cover Jaw Assembly Latex Free - [id number] Implanted:Qty: 1 on 05/13/2021 by Suyapa Santillan MD at [facility] Right: Neck ShinyByte [id number] 11/09/2025 [id number] / / [id number] Standardized Safety Medical Inc Probe Doppler 17.4cm Standard Cuff Implantable 20mhz Latex Free Sterile Microvascular Anastomoses [place] [id number] - [id number] Implanted:Qty: 1 on 05/13/2021 by Suyapa Santillan MD at [facility] Right: Neck Standardized [employer] Inc [id number] 11/05/2023 [id number] / / [id number] Description:Doppler wire cut and secured with Tegaderm prior to discharge. To be removed at follow-up by Dr. Santillan. Synthes 204.816 3.5mm 6mm 16mm 2.5mm Self Tap Small Hexagonal Socket Low Profile - [id number] Implanted:Qty: 3 on 05/13/2021 by Suyapa Santillan MD at [facility] Synthes I 204.816 / / Synthes 204.818 3.5mm 6mm 18mm 2.5mm Self Tap Small Hexagonal Socket Low Profile - [id number] Implanted:Qty: 1 on 05/13/2021 by Suyapa Santillan MD at [facility] Synthes I 204.818 / / Explanted Type Area Cut Off Saw Operator Pipe Blanks Device Identifier Shelf Expiration Date Model / Serial / Lot [place] Craniomaxillofaci al [id number] Leibinger [place] 2 2.7mm 8mm Lock Emergency Cross Pin - [id number] Implanted:Qty: 1 on 10/07/2020 by Leif Coe MD PhD at [facility] Explanted:Qty: 1 on 05/13/2021 by Suyapa Santillan MD at [facility] Screw N/A: Mandible [place] Craniomaxillofacial [id number] / / [employer] [id number] Probe Doppler 17.4cm Standard Cuff Implantable 20mhz Latex Free Sterile Microvascular Anastomoses [place] - [id number] Implanted:Qty: 1 on 10/07/2020 by Leif Coe MD PhD at [facility] Explanted:Qty: 1 on 10/14/2020 by Lyndsay Mckeon PA N/A: Neck [employer] [id number] 07/06/19 24 [id number] / / [id number] [place] Craniomaxillofaci al [id number] Leibinger Roselle 2 2mm 6mm Lock Cross Pin Maxillofacial Screw - [id number] Implanted:Qty: 3 on 10/07/2020 by Leif Coe MD PhD at [facility] Explanted:Qty: 3 on 05/13/2021 by Suyapa Santillan MD at [facility] N/A: Mandible Shruti Craniomaxillofacial 50- / / Shruti Craniomaxillofaci al [id number] Leibinger [place] 2 2mm 8mm Lock Cross Pin Mandibular Screw - [id number] Implanted:Qty: 2 on 10/07/2020 by Leif Coe MD PhD at [facility] Explanted:Qty: 2 on 05/13/2021 by Suyapa Santillan MD at [facility] N/A: Mandible [place] Craniomaxillofacial [id number] / / [place] Craniomaxillofaci al [id number] Leibinger [place] 2 2mm 10mm Lock Cross Pin Maxillofacial Screw - [id number] Implanted:Qty: 6 on 10/07/2020 by Leif Coe MD PhD at [facility] Explanted:Qty: 6 on 05/13/2021 at [facility] N/A: Mandible Shruti Craniomaxillofacial [id number] / / [place] Craniomaxillofaci al [id number] Leibinger [place] 2 2mm 12mm Lock Cross Pin Maxillofacial Screw - [id number] Implanted:Qty: 4 on 10/07/2020 by Leif Coe MD PhD at [facility] Explanted:Qty: 4 on 05/13/2021 at [facility] N/A: Mandible [place] Craniomaxillofacial [id number] / / Procedures Procedure Name Priority Date/Time Associated Diagnosis Comments FL MODIFIED BARIUM SWALLOW W VIDEO Schedule Routine, Read Routine (OP Routine) 06/25/2024 11:03 AM CDT Dysphagia, unspecified type from Last 3 Months Results * FL Modified Barium Swallow W Video (06/25/2024 11:03 AM CDT) Anatomical Region Laterality Modality Head and Neck N/A Radio Fluoroscop y 06/25/2024 11:1 2 AM CDT Impressions 06/25/2024 12:10 PM CDT The swallowing mechanism is abnormal; see above comments. Please refer to the Speech Pathology procedure note for safe swallow recommendations as well as additional information regarding the oral-pharyngeal swallow function, plan of care, and recommended follow up. Dictated by: Hilario Hawkins MD The radiology attending physician has personally reviewed this study, and had reviewed and/or edited this written report and agrees with it. Electronically signed by: Renny Gregory M.D. Narrative 06/25/2024 12:10 PM CDT EXAMINATION: MODIFIED BARIUM SWALLOW HISTORY: Dysphagia. TECHNIQUE: This procedure was completed in conjunction with a Speech Language Pathologist. The patient was given barium of multiple different consistencies to swallow. Video fluoroscopy was employed during the exam. FINDINGS: Oral-pharyngeal swallow function is severely impaired. Penetration: Yes There is penetration of thin and nectar thick liquid. Penetration is sensed. The penetrated material is cleared. Aspiration: Yes There is aspiration of thin liquid. Aspiration is sensed. The aspirated material is cleared. Residue:Yes There is oral-pharyngeal residue of thin and nectar thick liquid. Residue is sensed. The residual material is not cleared. Other comments: None Procedure Note Renny Gregory MD PhD - 06/25/2024 EXAMINATION: MODIFIED BARIUM SWALLOW HISTORY: Dysphagia. TECHNIQUE: This procedure was completed in conjunction with a Speech Language Pathologist. The patient was given barium of multiple different consistencies to swallow. Video fluoroscopy was employed during the exam. FINDINGS: Oral-pharyngeal swallow function is severely impaired. Penetration: Yes There is penetration of thin and nectar thick liquid. Penetration is sensed. The penetrated material is cleared. Aspiration: Yes There is aspiration of thin liquid. Aspiration is sensed. The aspirated material is cleared. Residue:Yes There is oral-pharyngeal residue of thin and nectar thick liquid. Residue is sensed. The residual material is not cleared. Other comments: None IMPRESSION: The swallowing mechanism is abnormal; see above comments. Please refer to the Speech Pathology procedure note for safe swallow recommendations as well as additional information regarding the oral-pharyngeal swallow function, plan of care, and recommended follow up. Dictated by: Hilario Hawkins MD The radiology attending physician has personally reviewed this study, and had reviewed and/or edited this written report and agrees with it. Electronically signed by: Renny Gregory M.D. Suyapa Sanitllan MD IMG FLUOROSCOPY PROCEDURES Fin al Result from Last 3 Months Insurance [employer] ADVANTAGE [employer] MEDICARE ADVANTAGE [facility] [employer] [place] [address] [employer] [address] Advance Directives For more information, please contact: [phone] * Full Code (Latest Code Status on [...] 11:07 AM 06/28/2022 2:37 PM Care Teams Safe And Vault Service Mechanic Relationship Specialty Start Date End Date Ayush Anthony DO [address] [place] [address] PCP - General 11/15/20
--- OUTSIDE RECORDS SUMMARY | 2024-09-10 08:33 | XMS_ITS | Encounter Summary ---
Author Organization [facility] Healthcare Address [address] [place] [address] Care Team Providers Care Computer Analyst Supervisor Name Role Phone GermandannielleAyushrish Primary Care Provider Encounter Details Date Type Department Care Team (Late st Contact Info) Description 04/07/2022 Telephone [facility] Radiology [address] [place] [address] Eunice Denise RN Social History Tobacco Use Types Packs/Day Years Used Date Smoking Tobacco: Every Day Cigarettes 0.3 3.7 Started: 01/05/2021 Smokeless Tobacco: Never Comments:quit and [...] file Legal Sex Female 4:48 AM FIELD GEOLOGIST Gender Identity Not on file Sexual Orientation Not on file documented as of this encounter Plan of Treatment Not on file documented as of this encounter Visit Diagnoses Not on filedocumented in this encounter Additional Health Concerns Infection Onset Date Last Indicated Resolved Time MDR gram neg/ESBL Comment:Criteria met. 05/13/2021 05/13/2021 06/29/2022 7:58 AM CDT documented as of this encounter Care Teams Computer Analyst Supervisor Relationship Specialty Start Date End Date Ayush Anthony DO [address] [place] [address] PCP - General 11/15/20 documented as of this encounter
--- OUTSIDE RECORDS SUMMARY | 2024-09-10 08:33 | XMS_ITS | Encounter Summary ---
Author Organization [facility] Healthcare Address [address] [place] [address] Care Team Providers Care Assistant Professor Of Chemistry Name Role Phone Ayush Anthonyrish Primary Care Provider Encounter Details Date Type Department Care Team (Late st Contact Info) Description 12/13/2023 Telephone [facility] Radiology [address] [place] [address] Susanne Dias RN Social History Tobacco Use Types Packs/Day Years Used Date Smoking Tobacco: Every Day Cigarettes 1 3.7 Started: 01/05/2021 Smokeless Tobacco: Never Comments:quit [...] 06/29/2022 How often do you attend chur or gnosticism services? 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
[2024-09-10 09:45] LABS: Alanine Aminotransferase 28 U/L (6-35); Albumin Level 4.8 g/dL (3.5-5.1); Alkaline Phosphatase 69 U/L (38-126); Anion Gap 5 mmol/L (4-12); Aspartate Amino Transferase 33 U/L (14-36); Bilirubin,Total 0.3 mg/dL (0.2-1.3); Blood Urea Nitrogen 10 mg/dL (7-17); Calcium 9.8 mg/dL (8.4-10.2); Carbon Dioxide 32 mmol/L (22-30); Chloride 99 mmol/L (98-107); Estimated Glomerular Filt Rate > 60; Glucose 97 mg/dL (65-110); Osmolality Calculated 281 mOsm/kg (285-295); Potassium 4.8 mmol/L (3.4-5.0); Sodium 136 mmol/L (137-145); Total Protein 7.8 g/dL (6.3-8.2)
== END 2024-09-10 08:27 | disposition home or self-care (01) ==
LOC: CHSLAB 08:27
PROVIDERS: PCP Nurse Practitioner Family; Visit Provider Nurse Practitioner Family
DX: E87.1 Hypo-osmolality and hyponatremia (principal)
CPT/HCPCS: 36415; 80053

== ENCOUNTER 2024-12-08 08:44 | Outpatient (CLI) | payer MEDICARE, SELFPAY ==
[2024-12-08 08:59] LABS: Hematocrit 40.5 % (35.0-42.0); Hemoglobin 13.2 g/dL (11.7-13.8); Immature Granulocyte Percent A 0.7 % (0.0-0.0); Lymphocytes Absolute Auto 1.29 K/mm3 (1.10-4.50); Mean Corpuscular HGB Conc 32.6 g/dL (32-36); Mean Corpuscular Hemoglobin 29.5 pg (27.0-31.0); Mean Corpuscular Volume 90.4 fL (78.0-102.0); Nucleated Red Blood Cells Absolute Auto 0.00 K/mm3 (0.00-0.00); Nucleated Red Blood Cells Perc 0.0 % (0-0.0); Platelet Count Result 383 K/mm3 (150-420); Red Blood Count 4.48 M/mm3 (4.20-5.40); White Blood Count 5.7 K/mm3 (4.8-10.8)
--- OUTSIDE RECORDS SUMMARY | 2024-12-08 09:00 | XMS_ITS | Clinical Summary ---
Author Organization [facility] Address [address] [place] [address] Care Team Providers Care Management Lecturer Name Role Phone Gabrielle Ayushsurya HollyWagner Primary Care Provider Allergies Active Allergy Reactions Criticality Noted Date Comments Clindamycin Hives,Itching,Rash High 02/28/2021 Medications diphenhydrAMINE (BENADRYL) 25 mg capsule [...] Active Additional Information Patient not taking.Reported on 11/11/2024 acetaminophen (TYLENOL) solution 160 mg/5 mL Administer per tube 31 mL (1,000 mg total) every 6 (six) hours as needed for pain 1500 mL 3 2 Active guaiFENesin (ROBITUSSIN) syrup 100 mg/5 mL Take 20 mL (400 mg total) by mouth 3 (three) times a day as needed for cough 473 mL 3 2 Active Additional Information Patient not taking.Reported on 11/11/2024 traZODone (DESYREL) 50 mg tablet Take 1 tablet (50 mg total) by mouth nightly Active benzonatate (TESSALON) 200 mg capsule Take 1 capsule (200 mg total) by mouth 2 (two) times a day as needed for cough Active levothyroxine (SYNTHROID) 150 mcg tabletIndicatio ns:hypothyroidi sm Administer per tube 1 tablet (150 mcg total) 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 30 tablet 3 Active Additional Information Patient not taking.Reported on 11/11/2024 atorvastatin (LIPITOR) 40 mg tablet Take 1 tablet (40 mg total) by mouth daily 30 tablet 3 Active aspirin 81 mg chewable tablet [...] (03/18/2021): Added automatically from request for surgery [id number] Postoperative or surgical complication 1 Osteoradionecrosis 12/20/2020 Assessment & Plan (12/20/2020 12:18 PM ORTHO NURSE): - s/p mandibulectomy c/b wound infection and fistula formation - treatment noted in above plan Severe malnutrition 11/26/2020 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 Segmental mandibulectomy. Right angle, to left midbody. 2. Left neck exploration. 3. Left osteocutaneous forearm free flap, 6 cm bone, 5x5 cm skin. Microvascular anastomosis to left external carotid and 3.5 pie chef to left external carotid vena comitante. 4. Prophylactic plating radius, 3.5 mm Synthes plate with use of intraoperative x-ray. 5. Left osteocutaneous scapula free flap Flow through flap with anastomosis to distal radial artery and 3.0 pie chef to distal cephalic vein. 6. Mandibular plating with use of 2.0 VSP Shruti plate. 7. Open tracheostomy without gildardo flap. 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 Difficulty in swallowing 03/06/2011 Resolved Problems Problem Noted Date Diagnosed Date Resolved Date Wound infection 12/20/2020 01/04/2021 Assessment & Plan (12/20/2020 12:48 PM ORTHO NURSE): - draining fistulous tract between her mouth [...] (08/19/2020): Added automatically from request for surgery [id number] Abnormal barium swallow 11/01/201511/05 Encounters Date Type Department Care Team Description 11/11/2024 11:30 AM CDT Office Visit [facility] [address] [address] Jesus Ngo MD Aspiration pneumonitis (HCC) (Primary Dx); Personal history of tobacco use; Pulmonary infiltrate 11/11/2024 10:04 AM CDT - 11/11/2024 11:59 PM CDT Hospital Encounter [facility] - [place] [address] [facility] [address] [place] [address] Aspiration pneumonitis (HCC); Personal history of tobacco use Discharge Disposition: Discharge to home or self [...] Date Smoking Tobacco: Every Day Cigarettes 1 3.9 Started: 01/05/2021 Passive Smoke Exposure: Current Smokeless Tobacco: Never Tobacco Cessation:Ready to Q uit: Not Asked; Counseling Given: Not Answered Comments:quit and 2009 but started again 08/2019 then stopped 08/2020 Social Connection and Isolation Panel Answer Date Recorded In a typical week, how many times do you talk on the phone with family, friends, or neighbors? More than three times a week 06/29/2022 How often do you get togethe r with friends or relatives? More than three times a week 06/29/2022 How often do you attend chur ch or quaker services? 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 Gender Identity Not on file Sexual Orientation Not on file Last Filed Vital Signs Vital Sign Reading Time Taken Comments Blood Pressure 117/76 11/11/2024 10:38 AM CDT Pulse 76 11/11/2024 10:38 AM CDT Temperature 36.2 C (97.1 F) 11/11/2024 10:40 AM CDT Respiratory Rate 15 11/11/2024 10:38 AM CDT Oxygen Saturation 99% 11/11/2024 10:38 AM CDT Inhaled Oxygen Concentration - - Weight 43.5 kg (96 lb) 11/11/2024 10:40 AM CDT Height 157.5 cm (5' 2.01) 04/29/2024 11:04 AM C DT Body Mass Index 17.55 04/29/2024 11:04 AM CDT Plan of Treatment Health Maintenance Due Date Last Done Comments Breast Cancer Screening-Mammogram 1954 Colon Cancer Screening-Colonoscopy 1954 Hepatitis C Screening 1954 Osteoporosis Screening-Bone Density Scan 1954 Hepatitis B Screening 1972 Well Visit 65+ 06/21/2019 Pneumococcal vaccine 65+ (2 of 2 - PCV) 03/15/2023 03/15/2022, 05/24/2018 Depression Screening 06/29/2023 06/28/2022 Covid-19 Vaccine (5 - 2024-2 6 season) 2024 07/05/2021, 07/05/2021, 01/18/2021, Additional history exists Influenza Vaccine (#1) 2024 11/04/2021, 2020 Fall Risk Assessment 12/12/2024 12/13/2023 DTaP/Tdap/Td Vaccine (2 - Td or Tdap) 05/24/2028 05/24/2018 Zoster Vaccine Completed 07/18/2022, 03/20/2022 Medical Devices Implanted Type Area Pension Manager Device Identifier Shelf Expiration Date Model / Serial / Lot Synthes Lcp Combi [id number] 14 Hole Limit Contact Taper End Plate Bone 223.641 - [id number] Implanted:Qty: 1 on 05/13/2021 by Suyapa Santillan MD at [facility] Plate Synthes I 223.641 / / MicroCHIPSian [id number] [place] Microvascular 2mm Ring Pin Protective Cover Jaw Assembly Latex Free - [id number] Implanted:Qty: 1 on 10/07/2020 by Leif Coe MD PhD at [facility] N/A: Mandible MicroCHIPSalisson 05/24/2025 [id number] / / [employer] Probe Doppler 17.4cm Standard Cuff Implantable 20mhz Latex Free Sterile Microvascular Anastomoses [employer] [id number] - [id number] Implanted:Qty: 1 on 05/13/2021 by Suyapa Santillan MD at [facility] Neck [employer] [id number] 12/06/2023 [id number] / / [id number] Description:Doppler wire cut and secured with Tegaderm prior to discharge. To be removed at follow-up by Dr. Santillan. [place] Craniomaxillofaci al Leibinger [place] 2 2.3mm 8mm Lock Cross Pin Maxillofacial [id number] - [id number] Implanted:Qty: 7 on 05/13/2021 by Suyapa Santillan MD at [facility] Mandible Shruti Craniomaxillofacial [id number] / / [place] Craniomaxillofaci al [place]inger [place] 2 2.3mm 10mm Lock Cross Pin Maxillofacial [id number] - [id number] Implanted:Qty: 1 on 05/13/2021 by Suyapa Santillan MD at [facility] Mandible Shruti Craniomaxillofacial [id number] / / Shruti Craniomaxillofaci al [place]inger [place] 2 2mm 6mm Lock Cross Pin Maxillofacial Screw 50 - [id number] Implanted:Qty: 6 on 05/13/2021 by Suyapa Santillan MD at [facility] Mandible [place] Craniomaxillofacial 50 / / LRN Allian [id number] [place] Microvascular 3mm Ring Pin Protective Cover Jaw Assembly Latex Free - [id number] Implanted:Qty: 1 on 05/13/2021 by Suyapa Santillan MD at [facility] Right: Neck MicroCHIPSian [id number] 11/09/2025 [id number] / / [id number] [employer] Probe Doppler 17.4cm Standard Cuff Implantable 20mhz Latex Free Sterile Microvascular Anastomoses Belkis [id number] - [id number] Implanted:Qty: 1 on 05/13/2021 by Suyapa Santillan MD at [facility] Right: Neck [employer] [id number] 11/05/2023 [id number] / / [id number] Description:Doppler wire cut and secured with Tegaderm prior to discharge. To be removed at follow-up by Dr. Santillan. Synthes 204.816 3.5mm 6mm 16mm 2.5mm Self Tap Small Hexagonal Socket Low Profile - [id number] Implanted:Qty: 3 on 05/13/2021 by Suyapa Santillan MD at [facility] Synthes I 204.816 / / Synthes 204.818 3.5mm 6mm 18mm 2.5mm Self Tap Small Hexagonal Socket Low Profile - [id number] Implanted:Qty: 1 on 05/13/2021 by Suyapa Santillan MD at [facility] Synthes I 204.818 / / Explanted Type Area Pension Manager Device Identifier Shelf Expiration Date Model / Serial / Lot [place] Craniomaxillofaci al [id number] Leibinger [place] 2 2.7mm 8mm Lock Emergency Cross Pin - [id number] Implanted:Qty: 1 on 10/07/2020 by Leif Coe MD PhD at [facility] Explanted:Qty: 1 on 05/13/2021 by Suyapa Santillan MD at [facility] Screw N/A: Mandible [place] Craniomaxillofacial [id number] / / [employer] [id number] Probe Doppler 17.4cm Standard Cuff Implantable 20mhz Latex Free Sterile Microvascular Anastomoses [employer] - [id number] Implanted:Qty: 1 on 10/07/2020 by Leif Coe MD PhD at [facility] Explanted:Qty: 1 on 10/14/2020 by Lyndsay Mckeon PA N/A: Neck [employer] [id number] 07/06/19 24 [id number] / / [id number] [place] Craniomaxillofaci al 50- Leibinger [place] 2 2mm 6mm Lock Cross Pin Maxillofacial Screw - [id number] Implanted:Qty: 3 on 10/07/2020 by Leif Coe MD PhD at [facility] Explanted:Qty: 3 on 05/13/2021 by Suyapa Santillan MD at [facility] N/A: Mandible Shruti Craniomaxillofacial [id number] / / [place] Craniomaxillofaci al [id number] Leibinger [place] 2 2mm 8mm Lock Cross Pin Mandibular Screw - [id number] Implanted:Qty: 2 on 10/07/2020 by Leif Coe MD PhD at [facility] Explanted:Qty: 2 on 05/13/2021 by Suyapa Santillan MD at [facility] N/A: Mandible Shruti Craniomaxillofacial [id number] / / Shruti Craniomaxillofaci al [id number] Leibinger [place] 2 2mm 10mm Lock Cross Pin Maxillofacial Screw - [id number] Implanted:Qty: 6 on 10/07/2020 by Leif Coe MD PhD at [facility] Explanted:Qty: 6 on 05/13/2021 at [facility] N/A: Mandible [place] Craniomaxillofacial [id number] / / [place] Craniomaxillofaci al [id number] Leibinger [place] 2 2mm 12mm Lock Cross Pin Maxillofacial Screw - [id number] Implanted:Qty: 4 on 10/07/2020 by Leif Coe MD PhD at [facility] Explanted:Qty: 4 on 05/13/2021 at [facility] N/A: Mandible Shruti Craniomaxillofacial [id number] / / Procedures Procedure Name Priority Date/Time Associated Diagnosis Comments CT CHEST WO CONTRAST Schedule Routine, Read Routine (OP Routine) 11/11/2024 10:26 AM CDT Aspiration pneumonitis (HCC) Personal history of tobacco use from Last 3 Months Results * CT Chest WO Contrast (11/11/2024 10:26 AM CDT) Anatomical Region Laterality Modality Body N/A Computed Tomogra phy 11/11/2024 12:0 1 PM CDT Impressions 11/11/2024 12:01 PM CDT Worsening bibasilar pulmonary infiltrates. The left lower lobe infiltrate has become more consolidated compared to the prior exam. The right lower lobe infiltrate is compatible with new changes of aspiration pneumonia on the right. Continued follow-up recommended. Electronically signed by: Christophe Trevino M.D. Narrative 11/11/2024 12:01 PM CDT EXAMINATION: Computed tomography of the chest without intravenous contrast material. HISTORY: Aspiration pneumonia. TECHNIQUE: CT scan of the chest was performed without intravenous contrast material following standard FINDINGS:. There is biapical pleuroparenchymal scarring present. Noted again are extensive pulmonary infiltrates in both lower lobes, compatible with aspiration. The right lower lobe infiltrate has worsened compared to the prior examination. The left lower lobe infiltrate also has become more consolidated since the prior examination. The left lower lobe infiltrate demonstrates some higher attenuation, which again could represent repeated aspiration. Mediastinal windows demonstrate extensive atherosclerotic changes of the aorta and coronary arteries. There is no pericardial effusion. There is no pleural effusion. ABDOMEN:. There is a gastrostomy tube in place. Residual contrast material is identified in the colon. Bones:. Normal bones. Procedure Note Christophe Trevino MD - 11/11/2024 EXAMINATION: Computed tomography of the chest without intravenous contrast material. HISTORY: Aspiration pneumonia. TECHNIQUE: CT scan of the chest was performed without intravenous contrast material following standard FINDINGS:. There is biapical pleuroparenchymal scarring present. Noted again are extensive pulmonary infiltrates in both lower lobes, compatible with aspiration. The right lower lobe infiltrate has worsened compared to the prior examination. The left lower lobe infiltrate also has become more consolidated since the prior examination. The left lower lobe infiltrate demonstrates some higher attenuation, which again could represent repeated aspiration. Mediastinal windows demonstrate extensive atherosclerotic changes of the aorta and coronary arteries. There is no pericardial effusion. There is no pleural effusion. ABDOMEN:. There is a gastrostomy tube in place. Residual contrast material is identified in the colon. Bones:. Normal bones. IMPRESSION: Worsening bibasilar pulmonary infiltrates. The left lower lobe infiltrate has become more consolidated compared to the prior exam. The right lower lobe infiltrate is compatible with new changes of aspiration pneumonia on the right. Continued follow-up recommended. Electronically signed by: Christophe Trevino M.D. Jesus Ngo MD IMG CT PROCEDURES [place] Result from Last 3 Months Insurance [employer] [facility] Address: [address] [address] [employer] [facility] ADV[facility] Address: [facility] [address] [place] [address] [facility] Address: [address] [address] [place] [address] [employer] [facility] Address: [address] [address] [place] [address] Advance Directives For more information, please contact: [phone] * Full Code (Latest Code Status on [...] 11:07 AM 06/28/2022 2:37 PM Care Teams Management Lecturer Relationship Specialty Start Date End Date Ayush Anthony DO [address] [place] [address] PCP - General 11/15/20
--- OUTSIDE RECORDS SUMMARY | 2024-12-08 09:00 | XMS_ITS | Encounter Summary ---
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 05/13/2021 05/13/2021 06/29/2022 7:58 AM CDT documented as of this encounter Care Teams Bulk Tank Car Unloader Relationship Specialty Start Date End Date Ayush Anthony DO [address] [place] [address] PCP - General 11/15/20 documented as of this encounter
--- OUTSIDE RECORDS SUMMARY | 2024-12-08 09:00 | XMS_ITS | Encounter Summary ---
Author Organization [facility] Healthcare Address [address] [place] [address] Care Team Providers Care Lasting Floorworker Name Role Phone GabrielleRenukasurya HollyWagner Primary Care Provider Encounter Details Date Type Department Care Team (Late st Contact Info) Description 12/13/2023 Telephone [facility] [address] [place] [address] Susanne Dias RN Social History Tobacco Use Types Packs/Day Years Used Date Smoking Tobacco: Every Day Cigarettes 1 3.9 Started: 01/05/2021 Smokeless Tobacco: Never Comments:quit [...] How often do you attend chur or latter day services? 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
[2024-12-08 09:17] LABS: Alanine Aminotransferase 17 U/L (6-35); Albumin Level 5.2 g/dL (3.5-5.1); Alkaline Phosphatase 75 U/L (38-126); Anion Gap 12 mmol/L (4-12); Aspartate Amino Transferase 31 U/L (14-36); Bilirubin,Total 1.6 mg/dL (0.2-1.3); Blood Urea Nitrogen 6 mg/dL (7-17); Calcium 10.1 mg/dL (8.4-10.2); Carbon Dioxide 29 mmol/L (22-30); Chloride 97 mmol/L (98-107); Cholesterol 227 mg/dL (0-200); Estimated Glomerular Filt Rate > 60; Glucose 111 mg/dL (65-110); HDL Direct 79 mg/dL; Osmolality Calculated 284 mOsm/kg (285-295); Potassium 4.4 mmol/L (3.4-5.0); Sodium 138 mmol/L (137-145); Total Protein 8.6 g/dL (6.3-8.2); Triglycerides 141 mg/dL (<150)
[2024-12-08 09:21] LABS: Hemoglobin A1C 5.6 % (<5.7)
[2024-12-08 09:47] LABS: Thyroid Stimulating Hormone 1.480 uIU/mL (0.465-4.680)
== END 2024-12-08 08:45 | disposition home or self-care (01) ==
LOC: CHSLAB 08:45
PROVIDERS: PCP Nurse Practitioner Family; Visit Provider Nurse Practitioner Family
DX: Z13.1 Encounter for screening for diabetes mellitus (principal); E03.9 Hypothyroidism, unspecified
CPT/HCPCS: 36415; 80053; 80061; 83036; 84443; 85025